=== PATIENT | male | born 1955 | race Caucasian/White ===

== ENCOUNTER 2016-12-24 16:38 | Emergency (ER) | payer MEDICARE ==
[2016-12-24 17:03] VITALS: BP 143/76; PULSE 73; RESP 18; TEMP 98.3
--- NOTE | 2016-12-24 17:14 | ED ---
Recheck HPI - General Chief Complaint: Recheck/Abnormal Lab/Rx Stated Complaint: Med Refill Time Seen by Provider: 12/24/16 17:09 Source: patient, family, RN notes reviewed Mode of arrival: wheelchair Limitations: no limitations - History of Present Illness Initial Comments: 61-year-old male presents emergency department for medication refill. Patient does not has medications because the [place] mail order has not send out his prescriptions. Patient states that he talked to them today and advance and on the . Patient is here with family member states this was confirmed. Patient has chronic anxiety, muscle spasms. Patient is out of his Flexeril, Xanax. - Related Data Home Medications Medication Instructions Recorded Confirmed Cyclobenzaprine [Flexeril] 10 mg PO TID 07/07/14 11/21/15 Furosemide [Lasix] 40 mg PO DAILY 07/07/14 11/21/15 Lovastatin [Mevacor] 20 mg PO HS 07/07/14 11/21/15 Potassium Chloride [Klor-Con M10] 10 meq PO DAILY 07/07/14 11/21/15 Warfarin Sodium 10 mg PO MOWEFRSA 07/07/14 11/21/15 Warfarin [Coumadin] 7.5 mg PO SUTUTH 07/07/14 11/21/15 metFORMIN HCL [Glucophage] 500 mg PO DAILY 07/07/14 11/21/15 Atorvastatin [Lipitor] 20 mg PO DAILY 08/08/14 11/21/15 Losartan Potassium 100 mg PO DAILY 09/06/14 11/21/15 [place]-3 Fatty Acids/Fish Oil [Fish 1 cap PO DAILY 09/06/14 11/21/15 Oil 1,000 mg Softgel] amLODIPine [Norvasc] 10 mg PO DAILY 09/06/14 11/21/15 Acetaminophen-Codeine 300-30mg 1 tab PO Q4HR PRN 11/21/15 11/21/15 [Tylenol w/codeine #3] Carbamide Peroxide [Debrox Otic] 2 drops BOTH EARS DAILY PRN 11/21/15 11/21/15 Gabapentin [Neurontin] 300 mg PO TID 11/21/15 11/21/15 Previous Rx's Medication Instructions Recorded ALPRAZolam [Xanax] 1 mg PO Q8HR #10 tab 07/07/14 Acetaminophen-Codeine 300-30mg 1 each PO Q6H PRN #20 tablet 11/21/15 [Tylenol #3] ALPRAZolam [Xanax] 0.5 mg PO BID PRN #14 tablet 12/24/16 Cyclobenzaprine [Flexeril] 10 mg PO TID PRN #15 tab 12/24/16 Allergies Allergy/AdvReac Type Severity Reaction Status Date / Time NSAIDS (Non-Steroidal Allergy Unknown Unknown Verified 12/24/16 17:03 Anti-Inflamma Androgenic Anabolic Steroid Allergy Unknown Verified 12/24/16 17:03 aspirin Allergy Unknown Verified 12/24/16 17:03 azithromycin Allergy Unknown Verified 12/24/16 17:03 [From Zithromax Z-Boaz] ibuprofen [From Motrin] Allergy Unknown Verified 12/24/16 17:03 niacin Allergy Unknown Verified 12/24/16 17:03 Review of Systems ROS Statement: Those systems with pertinent positive or pertinent negative responses have been documented in the HPI. ROS Other: All systems not noted in ROS Statement are negative. Past Medical History Past Medical History: Asthma, Diabetes Mellitus, Hyperlipidemia, Hypertension Additional Past Medical History / Comment(s): NEUROPATHY obsity History of Any Multi-Drug Resistant Organisms: None Reported Past Surgical History: Back Surgery, Cardiac Ablation, Ear Surgery, Orthopedic Surgery, Tonsillectomy Additional Past Surgical History / Comment(s): knee surgery, Past Psychological History: Anxiety Smoking Status: Current every day smoker Past Alcohol Use History: None Reported Past Drug Use History: None Reported General Exam General appearance: alert, in no apparent distress Respiratory exam: Present: normal lung sounds bilaterally. Absent: respiratory distress, wheezes, rales, rhonchi, stridor Cardiovascular Exam: Present: regular rate, normal rhythm, normal heart sounds. Absent: systolic murmur, diastolic murmur, rubs, gallop, clicks Neurological exam: Present: alert, oriented X3, CN II-XII intact Psychiatric exam: Present: anxious. Absent: homicidal ideation, suicidal ideation Skin exam: Present: warm, dry, intact, normal color. Absent: rash Course Vital Signs 12/24/16 16:59 Temperature 98.3 F Pulse Rate 73 Respiratory 18 Rate Blood Pressure 143/76 O2 Sat by Pulse 96 Oximetry Medical Decision Making - Medical Decision Making 61-year-old male presented for medication refill. Patient has not had any recent controlled substances filled. Patient will be given prescription return parameters were discussed. Disposition Clinical Impression: Encounter for medication refill, Muscle spasm, Anxiety Disposition: HOME SELF-CARE Condition: Stable Instructions: Anxiety (ED) Additional Instructions: Please return to the Emergency Department if symptoms worsen or any other concerns. Prescriptions: ALPRAZolam [Xanax] 0.5 mg PO BID PRN #14 tablet PRN Reason: Anxiety Cyclobenzaprine [Flexeril] 10 mg PO TID PRN #15 tab PRN Reason: Muscle Spasm Referrals: Titi Purvis DO [Primary Care Provider] - 1-2 days Time of Disposition: 17:13
== END 2016-12-24 17:29 | disposition home or self-care (01) ==
LOC: EC 16:38
DX: F41.9 Anxiety disorder, unspecified (principal); M62.838 Other muscle spasm; Z76.0 Encounter for issue of repeat prescription; E11.9 Type 2 diabetes mellitus without complications; E78.5 Hyperlipidemia, unspecified; I10 Essential (primary) hypertension; G62.9 Polyneuropathy, unspecified; E66.9 Obesity, unspecified; Z68.33 Body mass index [BMI] 33.0-33.9, adult; F17.200 Nicotine dependence, unspecified, uncomplicated; Z79.01 Long term (current) use of anticoagulants; Z79.899 Other long term (current) drug therapy; Z79.84 Long term (current) use of oral hypoglycemic drugs; Z88.6 Allergy status to analgesic agent; Z88.1 Allergy status to other antibiotic agents; Z88.8 Allergy status to other drugs, medicaments and biological substances
CPT/HCPCS: 99282

== ENCOUNTER 2017-06-19 15:04 | Inpatient (IN) | payer MEDICARE ==
--- NOTE | 2017-06-19 15:50 | ED ---
URI HPI - General Chief Complaint: Upper Respiratory Infection Stated Complaint: congestion Time Seen by Provider: 06/19/17 15:38 Source: patient Mode of arrival: wheelchair Limitations: no limitations - History of Present Illness Initial Comments: 62 years old male concerned about pneumonia, he said he bit short winded, complaining about the chest pain with deep breaths and he also has a history of heart disease according to him he had a surgery in the past for his coronary artery disease. Complaining about fever, chills, purulent sputum and pleuritic chest pain. No headaches no neck stiffness no abdominal pain no frequency urgency dysuria no symptoms of TIA or CVA - Related Data Home Medications Medication Instructions Recorded Confirmed Furosemide [Lasix] 40 mg PO DAILY 07/07/14 06/19/17 Potassium Chloride [Klor-Con M10] 10 meq PO DAILY 07/07/14 06/19/17 Warfarin Sodium 10 mg PO MOWEFRSA 07/07/14 06/19/17 Warfarin [Coumadin] 7.5 mg PO SUTUTH 07/07/14 06/19/17 metFORMIN HCL [Glucophage] 500 mg PO BID 07/07/14 06/19/17 Losartan Potassium 100 mg PO DAILY 09/06/14 06/19/17 [place]-3 Fatty Acids/Fish Oil [Fish 1 cap PO DAILY 09/06/14 06/19/17 Oil 1,000 mg Softgel] Acetaminophen-Codeine 300-30mg 1 tab PO Q4HR PRN 11/21/15 06/19/17 [Tylenol w/codeine #3] Atorvastatin Calcium [Lipitor] 40 mg PO DAILY 06/19/17 06/19/17 Cholecalciferol [Vitamin D3] 2,000 unit PO DAILY 06/19/17 06/19/17 Pregabalin [Lyrica] 50 mg PO Q8HR 06/19/17 06/19/17 Previous Rx's Medication Instructions Recorded Cyclobenzaprine [Flexeril] 10 mg PO TID PRN #15 tab 12/24/16 Allergies Allergy/AdvReac Type Severity Reaction Status Date / Time NSAIDS (Non-Steroidal Allergy Unknown Unknown Verified 06/19/17 16:15 Anti-Inflamma Androgenic Anabolic Steroid Allergy Unknown Verified 06/19/17 16:15 aspirin Allergy Unknown Verified 06/19/17 16:15 azithromycin Allergy Unknown Verified 06/19/17 16:15 [From Zithromax Z-Boaz] ibuprofen [From Motrin] Allergy Unknown Verified 06/19/17 16:15 niacin Allergy Unknown Verified 06/19/17 16:15 Review of Systems ROS Statement: Those systems with pertinent positive or pertinent negative responses have been documented in the HPI. ROS Other: All systems not noted in ROS Statement are negative. Past Medical History Past Medical History: Asthma, Diabetes Mellitus, Hyperlipidemia, Hypertension Additional Past Medical History / Comment(s): NEUROPATHY obsity History of Any Multi-Drug Resistant Organisms: None Reported Past Surgical History: Back Surgery, Cardiac Ablation, Ear Surgery, Orthopedic Surgery, Tonsillectomy Additional Past Surgical History / Comment(s): knee surgery, Past Psychological History: Anxiety Smoking Status: Current every day smoker Past Alcohol Use History: None Reported Past Drug Use History: None Reported General Exam - General Exam Comments Initial Comments: General: The patient is awake and alert, in no distress, and does not appear acutely ill. Skin: Skin is warm and dry and no rashes or lesions are noted. Eye: Pupils are equal, round and reactive to light, extra-ocular movements are intact; there is normal conjunctiva bilaterally. Ears, nose, mouth and throat: There are moist mucous membranes and no oral lesions. Neck: The neck is supple, there is no tenderness Cardiovascular: There is a regular rate and rhythm. No murmur, rub or gallop is appreciated. Respiratory: To auscultation bilateral, chemistry typical consistent with a moderate to severe COPD Gastrointestinal: Soft, non-distended, non-tender abdomen without masses or organomegaly noted. There is no rebound or guarding present. Bowel sounds are unremarkable. Back: There is no tenderness to palpation in the midline. There is no obvious deformity. Musculoskeletal: Normal ROM, no tenderness, There is no pedal edema. There is no calf tenderness or swelling. No cords were appreciated. Neurological: CN II-XII intact, Cranial nerves III through XII are intact. There are no obvious motor or sensory deficits. Coordination appears grossly intact. Speech is normal. Psychiatric: Cooperative, appropriate mood & affect, normal judgment. Limitations: no limitations Course Vital Signs 06/19/17 15:07 Temperature 97.9 F Pulse Rate 66 Respiratory 20 Rate Blood Pressure 163/91 O2 Sat by Pulse 98 Oximetry EKG is normal sinus rhythm ventricular rate is 65 AK interval is 196 QRS duration is 108 QT/QTc is 436/453 review cc EKG does not reveal any ST elevation or ST depression - Reevaluation(s) Reevaluation #1: His labs and imaging his were reviewed, findings discussed with the patient noticed his troponin is elevated he is on a his INR is quite elevated 5.3 mm hole of his Coumadin he be admitted today and be seen by screen printing press operator 06/19/17 17:48 Medical Decision Making - Lab Data Result diagrams: 06/19/17 16:00 06/19/17 16:00 Lab Results 06/19/17 06/19/17 06/19/17 Range/Units 16:00 16:00 16:00 WBC 9.2 (3.8-10.6) k/uL RBC 4.83 (4.30-5.90) m/uL Hgb 15.1 (13.0-17.5) gm/dL Hct 46.2 (39.0-53.0) % MCV 95.6 (80.0-100.0) fL MCH 31.2 (25.0-35.0) pg MCHC 32.6 (31.0-37.0) g/dL RDW 13.1 (11.5-15.5) % Plt Count 238 (150-450) k/uL Neutrophils % 69 % Lymphocytes % 23 % Monocytes % 5 % Eosinophils % 2 % Basophils % 1 % Neutrophils # 6.3 (1.3-7.7) k/uL Lymphocytes # 2.1 (1.0-4.8) k/uL Monocytes # 0.5 (0-1.0) k/uL Eosinophils # 0.2 (0-0.7) k/uL Basophils # 0.1 (0-0.2) k/uL PT (9.0-12.0) sec INR (<1.2) APTT (22.0-30.0) sec D-Dimer (<0.60) mg/L FEU Sodium 140 (137-145) mmol/L Potassium 4.3 (3.5-5.1) mmol/L Chloride 104 (98-107) mmol/L Carbon Dioxide 25 (22-30) mmol/L Anion Gap 11 mmol/L BUN 11 (9-20) mg/dL Creatinine 0.94 (0.66-1.25) mg/dL Est GFR (MDRD) Af Amer >60 (>60 ml/min/1.73 sqM) Est GFR (MDRD) Non-Af >60 (>60 ml/min/1.73 sqM) Glucose 102 H (74-99) mg/dL Calcium 9.5 (8.4-10.2) mg/dL Total Bilirubin 0.7 (0.2-1.3) mg/dL AST 18 (17-59) U/L ALT 21 (21-72) U/L Alkaline Phosphatase 95 (38-126) U/L Total Creatine Kinase 82 (55-170) U/L CK-MB (CK-2) 1.5 (0.0-2.4) ng/mL CK-MB (CK-2) Rel Index 1.8 Troponin I 0.040 H* (0.000-0.034) ng/mL Total Protein 7.8 (6.3-8.2) g/dL Albumin 4.3 (3.5-5.0) g/dL 06/19/17 Range/Units 16:00 WBC (3.8-10.6) k/uL RBC (4.30-5.90) m/uL Hgb (13.0-17.5) gm/dL Hct (39.0-53.0) % MCV (80.0-100.0) fL MCH (25.0-35.0) pg MCHC (31.0-37.0) g/dL RDW (11.5-15.5) % Plt Count (150-450) k/uL Neutrophils % % Lymphocytes % % Monocytes % % Eosinophils % % Basophils % % Neutrophils # (1.3-7.7) k/uL Lymphocytes # (1.0-4.8) k/uL Monocytes # (0-1.0) k/uL Eosinophils # (0-0.7) k/uL Basophils # (0-0.2) k/uL PT 52.5 H (9.0-12.0) sec INR 5.3 H* (<1.2) APTT 43.7 H (22.0-30.0) sec D-Dimer 0.33 (<0.60) mg/L FEU Sodium (137-145) mmol/L Potassium (3.5-5.1) mmol/L Chloride (98-107) mmol/L Carbon Dioxide (22-30) mmol/L Anion Gap mmol/L BUN (9-20) mg/dL Creatinine (0.66-1.25) mg/dL Est GFR (MDRD) Af Amer (>60 ml/min/1.73 sqM) Est GFR (MDRD) Non-Af (>60 ml/min/1.73 sqM) Glucose (74-99) mg/dL Calcium (8.4-10.2) mg/dL Total Bilirubin (0.2-1.3) mg/dL AST (17-59) U/L ALT (21-72) U/L Alkaline Phosphatase (38-126) U/L Total Creatine Kinase (55-170) U/L CK-MB (CK-2) (0.0-2.4) ng/mL CK-MB (CK-2) Rel Index Troponin I (0.000-0.034) ng/mL Total Protein (6.3-8.2) g/dL Albumin (3.5-5.0) g/dL Disposition Clinical Impression: Dyspnea, Chest pain, Pleuritic chest pain Disposition: ADMITTED IP TO THIS HOSP Referrals: Titi Purvis DO [Primary Care Provider] - 1-2 days
[2017-06-19 16:30] LABS: Basophils # (A) 0.1 k/uL (0-0.2); Basophils % (A) 1 %; CH 31.6; CHCM 33.2; Eosinophils # (A) 0.2 k/uL (0-0.7); Eosinophils % (A) 2 %; HCT 46.2 % (39.0-53.0); HDW 2.86; HGB 15.1 gm/dL (13.0-17.5); Luc # (Auto) 0.15; Luc % (Auto) 2; Lymphocytes # (A) 2.1 k/uL (1.0-4.8); Lymphocytes % (A) 23 %; MCH 31.2 pg (25.0-35.0); MCHC 32.6 g/dL (31.0-37.0); MCV 95.6 fL (80.0-100.0); Monocytes # (A) 0.5 k/uL (0-1.0); Monocytes % (A) 5 %; Neutrophils # (A) 6.3 k/uL (1.3-7.7); Neutrophils % (A) 69 %; RBC 4.83 m/uL (4.30-5.90); RDW 13.1 % (11.5-15.5); WBC 9.2 k/uL (3.8-10.6); WBC (Perox) 8.71
[2017-06-19 16:39] LABS: Partial Thromboplastin Time 43.7 sec (22.0-30.0)
[2017-06-19 16:43] LABS: ALT 21 U/L (21-72); AST 18 U/L (17-59); Alkaline Phosphatase 95 U/L (38-126); Anion Gap 11 mmol/L; Blood Urea Nitrogen 11 mg/dL (9-20); Calcium 9.5 mg/dL (8.4-10.2); Carbon Dioxide 25 mmol/L (22-30); Chloride 104 mmol/L (98-107); Glucose 102 mg/dL (74-99); Non-African American GFR(MDRD) >60 (>60 ml/min/1.73 sqM); Potassium 4.3 mmol/L (3.5-5.1); Sodium 140 mmol/L (137-145); Total Bilirubin 0.7 mg/dL (0.2-1.3); Total Protein 7.8 g/dL (6.3-8.2)
--- NOTE | 2017-06-19 16:59 | XR ---
EXAMINATION TYPE: XR chest 2V DATE OF EXAM: 06/19/2017 COMPARISON: 08/09/2012 HISTORY: Cough TECHNIQUE: Frontal and lateral views of the chest are obtained. FINDINGS: There is slight coarsening of interstitial pulmonary markings. There is no heart failure. Costophrenic angles are clear. There is spurring in the thoracic spine. Thoracic aorta is atheromatou s. IMPRESSION: Interstitial fibrotic changes. Pulmonary infiltrates are mostly cleared compared to old exam. No heart failure.
[2017-06-19 17:00] LABS: Creatine Kinase MB 1.5 ng/mL (0.0-2.4)
[2017-06-19 17:03] LABS: Prothrombin Time 52.5 sec (9.0-12.0)
[2017-06-19 17:06] LABS: INR 5.3 (<1.2)
[2017-06-19 17:17] LABS: Troponin I 0.04 ng/mL (0.000-0.034)
[2017-06-19] MEDS ORDERED: NITROGLYCERIN SL TABS 0.4 MG TAB SUBLINGUAL PRN (17:49)
[2017-06-19] MEDS ORDERED: Acetaminophen-Codeine 300-30mg TAB PO PRN (17:53)
[2017-06-19] MEDS ORDERED: CYCLOBENZAPRINE 10 MG TAB PO PRN (17:53)
[2017-06-19] MEDS ORDERED: Acetaminophen-Codeine 300-30mg TAB PO STA (18:13)
[2017-06-19 21:01] LABS: Glucose,Whole Blood 156 mg/dL (75-99)
[2017-06-19] MEDS: Acetaminophen-Codeine 300-30mg TAB PO PRN (21:23)
[2017-06-19] MEDS: metFORMIN 500 MG TAB PO SCH (21:23)
[2017-06-19 23:13] LABS: Creatine Kinase MB 1.3 ng/mL (0.0-2.4)
[2017-06-19 23:15] LABS: Troponin I 0.046 ng/mL (0.000-0.034)
[2017-06-19] MEDS: PREGABALIN 50 MG CAP PO SCH (23:18)
[2017-06-20] MEDS: Acetaminophen-Codeine 300-30mg TAB PO PRN ×6 (01:46→23:15)
[2017-06-20 05:10] LABS: Cholesterol 148 mg/dL (<200); HDL Cholesterol 41 mg/dL (40-60)
[2017-06-20 05:32] LABS: Creatine Kinase MB 1.3 ng/mL (0.0-2.4)
[2017-06-20 05:41] LABS: Troponin I 0.047 ng/mL (0.000-0.034)
[2017-06-20 06:08] LABS: INR 4.5 (<1.2); Prothrombin Time 44.4 sec (9.0-12.0)
[2017-06-20 06:15] LABS: Glucose,Whole Blood 91 mg/dL (75-99)
[2017-06-20] MEDS ORDERED: ASPIRIN 325 MG TAB PO SCH (09:00)
[2017-06-20] MEDS ORDERED: ATORVASTATIN 40 MG TAB PO SCH (09:00)
[2017-06-20] MEDS ORDERED: NON-FORMULARY DRUG (Omega-3 Fatty Acids/Fish Oil [Fish Oil 1,000 Mg Softgel] 1 CAP) PO SCH (09:00)
[2017-06-20] MEDS: FUROSEMIDE 40 MG TAB PO SCH (10:35)
[2017-06-20] MEDS: PREGABALIN 50 MG CAP PO SCH ×3 (10:35→23:14)
[2017-06-20] MEDS: metFORMIN 500 MG TAB PO SCH ×2 (10:35→21:31)
[2017-06-20] MEDS: LOSARTAN 50 MG TAB PO SCH (10:35)
[2017-06-20] MEDS: POTASSIUM CHLORIDE ER 10 MEQ TAB.ER.PRT PO SCH (10:36)
--- NOTE | 2017-06-20 11:03 | P.CRDCN ---
History of Present Illness Consult date: 06/20/17 Chief complaint: Cough History of present illness: This is a pleasant 62-year-old male gentleman who sees Dr. Saucedo in the office on regular basis with a past medical history significant for obesity , paroxysmal A. fib, borderline diabetes, hypertension, and dyslipidemia presented to the hospital complaining of "having a pneumonia" The patient was experiencing cough productive of sputum at home. Also he was having fever. Did not have any symptoms of chest pain or discomfort or difficulty breathing or heart racing or fluttering or dizziness or lightheadedness or syncope. He was feeling weak though. The chest x-ray did not show any acute abnormalities. The EKG showed sinus rhythm with nonspecific changes in the inferior leads. The cardiac enzymes were checked and came in to be slightly abnormal. The patient did not have any fever during his hospitalization. Also the WBC was not elevated. I am concerned about severe underlying coronary artery disease with the patient' s multiple risk factors. I will obtain the previous medical records from the office. He just underwent an echocardiogram in the office. Also obtain the last stress test. Past Medical History Past Medical History: Asthma, Diabetes Mellitus, Hyperlipidemia, Hypertension Additional Past Medical History / Comment(s): NEUROPATHY obsity History of Any Multi-Drug Resistant Organisms: None Reported Past Surgical History: Back Surgery, Cardiac Ablation, Ear Surgery, Orthopedic Surgery, Tonsillectomy Additional Past Surgical History / Comment(s): knee surgery, Past Anesthesia/Blood Transfusion Reactions: No Reported Reaction Smoking Status: Current every day smoker - Past Family History Mother Family Medical History: Cancer Medications and Allergies Home Medications Medication Instructions Recorded Confirmed Type Furosemide [Lasix] 40 mg PO DAILY 07/07/14 06/19/17 History Potassium Chloride [Klor-Con M10] 10 meq PO DAILY 07/07/14 06/19/17 History Warfarin Sodium 10 mg PO MOWEFRSA 07/07/14 06/19/17 History Warfarin [Coumadin] 7.5 mg PO SUTUTH 07/07/14 06/19/17 History metFORMIN HCL [Glucophage] 500 mg PO BID 07/07/14 06/19/17 History Losartan Potassium 100 mg PO DAILY 09/06/14 06/19/17 History [place]-3 Fatty Acids/Fish Oil [Fish 1 cap PO DAILY 09/06/14 06/19/17 History Oil 1,000 mg Softgel] Acetaminophen-Codeine 300-30mg 1 tab PO Q4HR PRN 11/21/15 06/19/17 History [Tylenol w/codeine #3] Cyclobenzaprine [Flexeril] 10 mg PO TID PRN #15 tab 12/24/16 06/19/17 Rx Atorvastatin Calcium [Lipitor] 40 mg PO DAILY 06/19/17 06/19/17 History Cholecalciferol [Vitamin D3] 2,000 unit PO DAILY 06/19/17 06/19/17 History Pregabalin [Lyrica] 50 mg PO Q8HR 06/19/17 06/19/17 History Allergies Allergy/AdvReac Type Severity Reaction Status Date / Time NSAIDS (Non-Steroidal Allergy Unknown Unknown Verified 06/19/17 16:15 Anti-Inflamma Androgenic Anabolic Steroid Allergy Unknown Verified 06/19/17 16:15 aspirin Allergy Unknown Verified 06/19/17 16:15 azithromycin Allergy Unknown Verified 06/19/17 16:15 [From Zithromax Z-Boaz] ibuprofen [From Motrin] Allergy Unknown Verified 06/19/17 16:15 niacin Allergy Unknown Verified 06/19/17 16:15 Physical Exam Vitals: Vital Signs Temp Pulse Pulse Pulse Resp BP BP 06/20/17 04:00 97 F L 70 18 165/80 06/19/17 23:23 97.1 F L 68 16 139/79 06/19/17 20:00 97.0 F L 68 16 177/95 06/19/17 19:08 96.8 F L 66 20 178/81 06/19/17 18:58 97.9 F 65 18 146/81 06/19/17 18:43 65 18 146/81 06/19/17 18:17 66 18 163/77 06/19/17 15:07 97.9 F 66 20 163/91 Pulse Ox 06/20/17 04:00 93 L 06/19/17 23:23 94 L 06/19/17 20:00 96 06/19/17 19:08 96 06/19/17 18:58 98 06/19/17 18:43 98 06/19/17 18:17 98 06/19/17 15:07 98 Intake and Output 06/19/17 06/20/17 06/20/17 22:59 06:59 14:59 Intake Total 240 Output Total 300 Balance 240 -300 Intake: Oral 240 Output: Urine 300 Other: Voiding Method Toilet # Voids 1 Weight 199.581 kg 144.8 kg - Constitutional General appearance: no acute distress - Respiratory Respiratory: bilateral: CTA - Cardiovascular Rhythm: regular Heart sounds: normal: S1, S2 Results 06/19/17 16:00 06/19/17 16:00 Cardiac Enzymes 06/19/17 06/19/17 06/19/17 Range/Units 16:00 16:00 22:18 AST 18 (17-59) U/L CK-MB (CK-2) 1.5 1.3 (0.0-2.4) ng/mL Troponin I 0.040 H* 0.046 H* (0.000-0.034) ng/mL 06/20/17 Range/Units 04:19 AST (17-59) U/L CK-MB (CK-2) 1.3 (0.0-2.4) ng/mL Troponin I 0.047 H* (0.000-0.034) ng/mL Coagulation 06/19/17 06/20/17 Range/Units 16:00 04:19 PT 52.5 H 44.4 H (9.0-12.0) sec APTT 43.7 H (22.0-30.0) sec Lipids 06/20/17 Range/Units 04:19 Triglycerides 168 H (<150) mg/dL Cholesterol 148 (<200) mg/dL HDL Cholesterol 41 (40-60) mg/dL CBC 06/19/17 Range/Units 16:00 WBC 9.2 (3.8-10.6) k/uL RBC 4.83 (4.30-5.90) m/uL Hgb 15.1 (13.0-17.5) gm/dL Hct 46.2 (39.0-53.0) % Plt Count 238 (150-450) k/uL Comprehensive Metabolic Panel 06/19/17 Range/Units 16:00 Sodium 140 (137-145) mmol/L Potassium 4.3 (3.5-5.1) mmol/L Chloride 104 (98-107) mmol/L Carbon Dioxide 25 (22-30) mmol/L BUN 11 (9-20) mg/dL Creatinine 0.94 (0.66-1.25) mg/dL Glucose 102 H (74-99) mg/dL Calcium 9.5 (8.4-10.2) mg/dL AST 18 (17-59) U/L ALT 21 (21-72) U/L Alkaline Phosphatase 95 (38-126) U/L Total Protein 7.8 (6.3-8.2) g/dL Albumin 4.3 (3.5-5.0) g/dL Current Medications Generic Name Dose Route Start Last Admin Trade Name Freq PRN Reason Stop Dose Admin Acetaminophen/Codeine Phosphate 2 each 06/19/17 20:01 06/20/17 10:36 Tylenol #3 PO 2 each Q4HR PRN Administration Pain Atorvastatin Calcium 40 mg 06/20/17 09:00 06/20/17 10:35 Lipitor PO 40 mg DAILY [place] Administration Cholecalciferol 2,000 unit 06/20/17 12:00 Vitamin D3 PO 1200 [place] Cyclobenzaprine HCl 10 mg 06/19/17 17:53 Flexeril PO TID PRN Muscle Spasm Furosemide 40 mg 06/20/17 09:00 06/20/17 10:35 Lasix PO 40 mg DAILY [place] Administration Losartan Potassium 100 mg 06/20/17 09:00 06/20/17 10:35 Cozaar PO 100 mg DAILY [place] Administration Metformin HCl 500 mg 06/19/17 21:00 06/20/17 10:35 Glucophage PO 500 mg BID [place] Administration Nitroglycerin 0.4 mg 06/19/17 17:49 Nitrostat SUBLINGUAL Q5M PRN Chest Pain Potassium Chloride 10 meq 06/20/17 09:00 06/20/17 10:36 K-Dur 10 PO 10 meq DAILY [place] Administration Pregabalin 50 mg 06/20/17 00:00 06/20/17 10:35 Lyrica PO 50 mg Q8HR [place] Administration Intake and Output 06/19/17 06/20/17 06/20/17 22:59 06:59 14:59 Intake Total 240 Output Total 300 Balance 240 -300 Intake: Oral 240 Output: Urine 300 Other: Voiding Method Toilet # Voids 1 Weight 199.581 kg 144.8 kg 06/19/17 16:00 06/19/17 16:00 Assessment and Plan Assessment: This is a pleasant 62-year-old gentleman with multiple risk factors for CAD presented to the hospital with cough and weakness. No chest pain or discomfort. The patient was ruled in for acute coronary syndrome. The cardiac enzymes are mildly elevated and the EKG showed nonspecific changes. I am concerned about severe underlying CAD. I do feel that the patient needs to have a heart catheterization to rule out any severe underlying CAD. I am going to obtain the previous medical records from the office including the last stress test and last echocardiogram. We'll continue following up with him.
[2017-06-20 11:29] LABS: Glucose,Whole Blood 105 mg/dL (75-99)
[2017-06-20] MEDS: CHOLECALCIFEROL 1,000 UNIT TAB PO SCH (14:35)
--- NOTE | 2017-06-20 14:35 | P.HPIM ---
History of Present Illness H&P Date: 06/20/17 Chief Complaint: Shortness of breath Patient is a 62-year-old male with a known history of hypertension, diabetes type 2 [id number]-frefxtewu, history of atrial fibrillation status post ablation by Dr. Saucedo and morbid obesity came to the hospital with complaints of chest congestion and shortness of breath worsening for the past few days. Patient thought he was having pneumonia. Patient otherwise denied any chest pain. Patient does have cough with white sputum production. Patient denied any fever. Or chills. No nausea vomiting or abdominal pain. Otherwise has been feeling very weak. Patient is supposed to follow with his banner painter, Dr. Saucedo today. On admission chest x-ray showed no acute cardio pulmonary process. EKG showed normal sinus rhythm. With T-wave nonspecific changes Patient was found have slightly elevated troponin level D-dimer not elevated INR 5.3. Review of Systems Constitutional: Patient denies any fever or chills . No generalized weakness or weight loss. Abdomen: Patient denied nausea vomiting and diarrhea and abdominal pain. Cardiovascular: No chest pain. Shortness of breath and congestion. Respiratory: Cough with whitish sputum production and shortness of breath Neurologic: Patient denied any numbness or tingling headache. Musculoskeletal: Patient denies any complaints of joint swelling or deformity. Skin: Negative Psychiatric: Negative Endocrine: No heat or cold intolerance. No recent weight gain. Genitourinary: No dysuria or hematuria. All other 14 point ROS negative except the above Past Medical History Past Medical History: Asthma, Diabetes Mellitus, Hyperlipidemia, Hypertension Additional Past Medical History / Comment(s): NEUROPATHY obsity History of Any Multi-Drug Resistant Organisms: None Reported Past Surgical History: Back Surgery, Cardiac Ablation, Ear Surgery, Orthopedic Surgery, Tonsillectomy Additional Past Surgical History / Comment(s): knee surgery, Past Anesthesia/Blood Transfusion Reactions: No Reported Reaction Smoking Status: Current every day smoker - Past Family History Mother Family Medical History: Cancer Medications and Allergies Home Medications Medication Instructions Recorded Confirmed Type Furosemide [Lasix] 40 mg PO DAILY 07/07/14 06/19/17 History Potassium Chloride [Klor-Con M10] 10 meq PO DAILY 07/07/14 06/19/17 History Warfarin Sodium 10 mg PO MOWEFRSA 07/07/14 06/19/17 History Warfarin [Coumadin] 7.5 mg PO SUTUTH 07/07/14 06/19/17 History metFORMIN HCL [Glucophage] 500 mg PO BID 07/07/14 06/19/17 History Losartan Potassium 100 mg PO DAILY 09/06/14 06/19/17 History [place]-3 Fatty Acids/Fish Oil [Fish 1 cap PO DAILY 09/06/14 06/19/17 History Oil 1,000 mg Softgel] Acetaminophen-Codeine 300-30mg 1 tab PO Q4HR PRN 11/21/15 06/19/17 History [Tylenol w/codeine #3] Cyclobenzaprine [Flexeril] 10 mg PO TID PRN #15 tab 12/24/16 06/19/17 Rx Atorvastatin Calcium [Lipitor] 40 mg PO DAILY 06/19/17 06/19/17 History Cholecalciferol [Vitamin D3] 2,000 unit PO DAILY 06/19/17 06/19/17 History Pregabalin [Lyrica] 50 mg PO Q8HR 06/19/17 06/19/17 History Allergies Allergy/AdvReac Type Severity Reaction Status Date / Time NSAIDS (Non-Steroidal Allergy Unknown Unknown Verified 06/19/17 16:15 Anti-Inflamma Androgenic Anabolic Steroid Allergy Unknown Verified 06/19/17 16:15 aspirin Allergy Unknown Verified 06/19/17 16:15 azithromycin Allergy Unknown Verified 06/19/17 16:15 [From Zithromax Z-Boaz] ibuprofen [From Motrin] Allergy Unknown Verified 06/19/17 16:15 niacin Allergy Unknown Verified 06/19/17 16:15 Physical Exam Vitals: Vital Signs Temp Pulse Pulse Pulse Resp BP BP 06/20/17 09:45 70 70 18 06/20/17 08:30 97.4 F L 74 18 148/78 06/20/17 04:00 97 F L 70 18 165/80 06/19/17 23:23 97.1 F L 68 16 139/79 06/19/17 20:00 97.0 F L 68 16 177/95 06/19/17 19:08 96.8 F L 66 20 178/81 06/19/17 18:58 97.9 F 65 18 146/81 06/19/17 18:43 65 18 146/81 06/19/17 18:17 66 18 163/77 06/19/17 15:07 97.9 F 66 20 163/91 Pulse Ox 06/20/17 09:45 06/20/17 08:30 94 L 06/20/17 04:00 93 L 06/19/17 23:23 94 L 06/19/17 20:00 96 06/19/17 19:08 96 06/19/17 18:58 98 06/19/17 18:43 98 06/19/17 18:17 98 06/19/17 15:07 98 Intake and Output 06/19/17 06/20/17 06/20/17 22:59 06:59 14:59 Intake Total 240 Output Total 300 Balance 240 -300 Intake: Oral 240 Output: Urine 300 Other: Voiding Method Toilet Toilet # Voids 1 Weight 199.581 kg 144.8 kg PHYSICAL EXAMINATION: Patient is lying in the bed comfortably, no acute distress, awake alert and oriented.. HEENT: Normocephalic. Neck is supple. Pupils reactive. Nostrils clear. Oral cavity is moist. Ears reveal no drainage. Neck reveals no JVD, carotid bruits, or thyromegaly. CHEST EXAMINATION: Trachea is central. Symmetrical expansion. Bilateral air entry is present. Diminished breath sounds bilateral basally. CARDIAC: Normal S1, S2 with no gallops. No murmurs ABDOMEN: Soft. Bowel sounds normal. No organomegaly. No abdominal bruits. Extremities: reveal no edema. No clubbing or cyanosis Neurologically awake, alert, oriented x3 with well-coordinated movements. No focal deficits noted Skin: No rash or skin lesions. Psychiatric: Coperative. Nonsuicidal Musculoskeletal: No joint swelling or deformity. Normal range of motion. Results CBC & Chem 7: 06/19/17 16:00 06/19/17 16:00 Labs: Abnormal Lab Results - Last 24 Hours (Table) 06/19/17 06/19/17 06/19/17 Range/Units 16:00 16:00 16:00 PT 52.5 H (9.0-12.0) sec INR 5.3 H* (<1.2) APTT 43.7 H (22.0-30.0) sec Glucose 102 H (74-99) mg/dL POC Glucose (mg/dL) (75-99) mg/dL Troponin I 0.040 H* (0.000-0.034) ng/mL Triglycerides (<150) mg/dL 06/19/17 06/19/17 06/20/17 Range/Units 21:00 22:18 04:19 PT (9.0-12.0) sec INR (<1.2) APTT (22.0-30.0) sec Glucose (74-99) mg/dL POC Glucose (mg/dL) 156 H (75-99) mg/dL Troponin I 0.046 H* 0.047 H* (0.000-0.034) ng/mL Triglycerides (<150) mg/dL 06/20/17 06/20/17 06/20/17 Range/Units 04:19 04:19 11:27 PT 44.4 H (9.0-12.0) sec INR 4.5 H (<1.2) APTT (22.0-30.0) sec Glucose (74-99) mg/dL POC Glucose (mg/dL) 105 H (75-99) mg/dL Troponin I (0.000-0.034) ng/mL Triglycerides 168 H (<150) mg/dL Thrombosis Risk Factor Assmnt - Choose All That Apply Each Factor Represents 1 point: Obesity (BMI >25) Each Risk Factor Represents 2 Points: Age 61-74 years Thrombosis Risk Factor Assessment Total Risk Factor Score: 3 Thrombosis Risk Factor Assessment Level: Moderate Risk Assessment and Plan Assessment: #1 atypical chest pain and shortness of breath with intermediate troponin level. Rule out acute coronary syndrome #2 cough and congestion. No evidence of pneumonia. Rule out acute CHF. We will check BNP #3 atrial fibrillation paroxysmal with history of fibrillation currently on anticoagulation #4 Coumadin coagulopathy with INR 5.3 #5 morbid obesity with a BMI 43 #6 diabetes type 2 [id number]-pciapdder #7 hypertension #8 degenerative joint disease #9 diabetic neuropathy Plan: Patient will be continued on telemetry monitoring. We'll check serial troponins. Cardiology evaluation. Patient says that he had recently echocardiogram was done. We will continue with the home medications and blood sugar control. Will hold Coumadin due to coagulopathy and monitor. BNP level was ordered. Patient does not have any fever or chills or cough with sputum production. No antibiotics needed at this time. We will continue the current medications and further recommendations based on the clinical course and cardiology evaluation. Time with Patient: Greater than 30
[2017-06-20] MEDS ORDERED: NITROGLYCERIN SL TABS 0.4 MG TAB SUBLINGUAL PRN (15:13)
[2017-06-20] MEDS ORDERED: ALPRAZolam 0.25 MG TAB PO PRN (15:13)
[2017-06-20] MEDS ORDERED: ALPRAZolam 0.5 MG TAB PO PRN (15:13)
[2017-06-20] MEDS ORDERED: SODIUM CHLORIDE 0.9% 1,000 ML in EMPTY BAG 1 BAG IV ONE (15:13)
[2017-06-20 16:52] LABS: Glucose,Whole Blood 93 mg/dL (75-99)
[2017-06-20 21:25] LABS: Glucose,Whole Blood 131 mg/dL (75-99)
[2017-06-21] MEDS: Acetaminophen-Codeine 300-30mg TAB PO PRN ×5 (03:10→20:11)
[2017-06-21] MEDS ORDERED: ATORVASTATIN 80 MG TAB PO ONE (06:00)
[2017-06-21] MEDS ORDERED: ASPIRIN 325 MG TAB PO ONE (06:00)
[2017-06-21 06:25] LABS: Glucose,Whole Blood 120 mg/dL (75-99)
[2017-06-21] MEDS: metFORMIN 500 MG TAB PO SCH ×2 (06:34→14:38)
[2017-06-21] MEDS: POTASSIUM CHLORIDE ER 10 MEQ TAB.ER.PRT PO SCH (06:42)
[2017-06-21] MEDS: PREGABALIN 50 MG CAP PO SCH ×2 (06:42→14:49)
[2017-06-21] MEDS: LOSARTAN 50 MG TAB PO SCH (06:42)
[2017-06-21 10:49] LABS: INR 2.8 (<1.2); Prothrombin Time 27.3 sec (9.0-12.0)
[2017-06-21] MEDS ORDERED: MIDAZOLAM 2 MG/2 ML VIAL IVP ONE ×2 (11:05→11:07)
[2017-06-21] MEDS ORDERED: IV FLUID CONTINUATION 1,000 ML IV ONE (11:05)
[2017-06-21] MEDS ORDERED: LIDOCAINE 2% INJ 20 MG/ML SQ ONE (11:10)
[2017-06-21] MEDS: VERAPAMIL SYRINGE (5 MG/10 ML) INTRAARTER ONE ×2 (11:11→11:23)
[2017-06-21] MEDS ORDERED: IOHEXOL 350 MG/ML 125ML BOTTLE INJ ONE (11:23)
--- NOTE | 2017-06-21 11:51 | CC ---
CARDIAC CATHETERIZATION REPORT DATE OF SERVICE: 06/21/2017 PERFORMING PHYSICIAN: Audie Davis MD, Java Technical Manager. PROCEDURE PERFORMED: 1. Selective right and left coronary angiogram. 2. Left heart catheterization. INDICATION: This is a pleasant 62-year-old gentleman who presented to the hospital with nonspecific symptoms of being tired and fatigued and was ruled in for acute coronary syndrome. The heart catheterization was recommended, in view of that and in view of his multiple risk factors. APPROACH: Right radial artery. COMPLICATION: None. LEVEL OF SEDATION: Moderate with a sedation length of 15 minutes. PROCEDURE DESCRIPTION: After obtaining an informed consent, the patient was brought to the Cardiac Personnel Administrator. The right radial artery was cannulated using micropuncture technique, the micropuncture wire passed easily, then I placed a 6-Turkish sheath in the right radial artery and subsequently I gave the patient 2 mg of verapamil IA and no heparin was given. The reason for that, because the patient's INR was 2. After that, I did selective right and left coronary angiogram using JR4 and JL4 catheters. I did left heart catheterization using the JR4 catheter, which flipped into the LV. Then I did pullback per protocol. The procedure was completed without any complication. SELECTIVE CORONARY ANGIOGRAM: 1. The right coronary artery is a large caliber vessel and it is a dominant vessel. It is angiographically normal. 2. The left main is angiographically normal. It bifurcates into the left circumflex and left anterior descending artery. The left circumflex is a large caliber vessel and it is a codominant vessel. The proximal left circumflex is angiographically normal and gives rise into the first and second obtuse marginal branches, both are angiographically normal. The mid left circumflex is normal and gives rise into the third OM, which is small caliber vessel and seems to be angiographically normal. 3. The circumflex distally is angiographically normal and bifurcates into PDA and PLV branches, both are angiographically normal. 4. The left anterior descending artery: The proximal LAD is angiographically normal. The mid LAD and distal LAD are angiographically normal. The LAD proximally gives rise into a large diagonal branch which seems to be angiographically normal. HEMODYNAMICS: The left ventricular end-diastolic pressure was 12 mmHg and no gradient was identified across the aortic valve. CONCLUSION: Normal coronary angiogram. POSTPROCEDURE MANAGEMENT: 1. Medical treatment. 2. Follow up with the patient. MMODL / IJN: [id number] /
[2017-06-21] MEDS: FUROSEMIDE 40 MG TAB PO SCH (11:53)
[2017-06-21] MEDS: CHOLECALCIFEROL 1,000 UNIT TAB PO SCH (11:54)
[2017-06-21 12:00] LABS: Glucose,Whole Blood 112 mg/dL (75-99)
[2017-06-21 17:08] LABS: Glucose,Whole Blood 116 mg/dL (75-99)
[2017-06-21 21:05] LABS: Glucose,Whole Blood 123 mg/dL (75-99)
--- NOTE | 2017-06-21 22:47 | P.PN ---
Subjective Progress Note Date: 06/21/17 Principal diagnosis: Chest pain Patient is a 62-year-old male with a known history of hypertension, diabetes type 2 [id number]-qrrhibrhy, history of atrial fibrillation status post ablation by Dr. Saucedo and morbid obesity came to the hospital with complaints of chest congestion and shortness of breath worsening for the past few days. Patient thought he was having pneumonia. Patient otherwise denied any chest pain. Patient does have cough with white sputum production. Patient denied any fever. Or chills. No nausea vomiting or abdominal pain. Otherwise has been feeling very weak. Patient is supposed to follow with his senior pensions administrator, Dr. Saucedo today. On admission chest x-ray showed no acute cardio pulmonary process. EKG showed normal sinus rhythm. With T-wave nonspecific changes Patient was found have slightly elevated troponin level D-dimer not elevated INR 5.3. 06/21/2017 Patient denied any complaints of chest pain today. Patient underwent recatheterization's which showed normal coronaries. INR came down to 2.8 today. Patient denied any shortness of breath. Anticipate discharge tomorrow. Objective - Vital Signs Vital signs: Vital Signs Temp 97.1 F L 06/21/17 15:57 Pulse 74 06/21/17 15:57 Resp 16 06/21/17 15:57 BP 150/69 06/21/17 15:57 Pulse Ox 96 06/21/17 15:57 Intake & Output 06/21/17 06/21/17 06/22/17 06:59 18:59 06:59 Intake Total 1632 892 Balance 1632 892 Weight 143.3 kg Intake: IV 100 Intake, IV Titration 1152 432 Amount Sodium Chloride 0.9% 1, 1152 432 000 ml In Empty Bag 1 bag @ 1 ML/KG/HR 144.8 mls/ hr IV .Q6H55M ONE Rx#: [id number] Oral 480 360 Other: Voiding Method Toilet Toilet # Voids 1 - Exam PHYSICAL EXAMINATION: Patient is lying in the bed comfortably, no acute distress, awake alert and oriented.. HEENT: Normocephalic. Neck is supple. Pupils reactive. Nostrils clear. Oral cavity is moist. Ears reveal no drainage. Neck reveals no JVD, carotid bruits, or thyromegaly. CHEST EXAMINATION: Trachea is central. Symmetrical expansion. Lung juarez clear to auscultation and percussion. CARDIAC: Normal S1, S2 with no gallops. No murmurs ABDOMEN: Soft. Bowel sounds normal. No organomegaly. No abdominal bruits. Extremities: reveal no edema. No clubbing or cyanosis Neurologically awake, alert, oriented x3 with well-coordinated movements. No focal deficits noted Skin: No rash or skin lesions. Psychiatric: Operative. Nonsuicidal Musculoskeletal: No joint swelling or deformity. Normal range of motion. - Labs CBC & Chem 7: 06/19/17 16:00 06/19/17 16:00 Labs: Abnormal Lab Results - Last 24 Hours (Table) 06/21/17 06/21/17 06/21/17 Range/Units 06:24 10:30 11:58 PT 27.3 H (9.0-12.0) sec INR 2.8 H (<1.2) POC Glucose (mg/dL) 120 H 112 H (75-99) mg/dL 06/21/17 06/21/17 Range/Units 16:57 21:04 PT (9.0-12.0) sec INR (<1.2) POC Glucose (mg/dL) 116 H 123 H (75-99) mg/dL Assessment and Plan Assessment: #1 atypical chest pain and shortness of breath with intermediate troponin level. Ruled out acute coronary syndrome #2 cough and congestion. No evidence of pneumonia. Rule out acute CHF. Not elevated BNP #3 atrial fibrillation paroxysmal with history of ablation. currently on anticoagulation #4 Coumadin coagulopathy with INR 5.3 #5 morbid obesity with a BMI 43 #6 diabetes type 2 [id number]-yttvvsrke #7 hypertension #8 degenerative joint disease #9 diabetic neuropathy Plan: Patient will be continued on telemetry monitoring. We will continue with the home medications and blood sugar control. Will hold Coumadin due to coagulopathy and monitor. Patient does not have any fever or chills or cough with sputum production. No antibiotics needed at this time. We will continue the current medications and further recommendations based on the clinical course and cardiology evaluation.
[2017-06-22] MEDS: Acetaminophen-Codeine 300-30mg TAB PO PRN ×4 (00:09→12:38)
[2017-06-22 01:22] VITALS: RESP 18
[2017-06-22 06:17] LABS: Glucose,Whole Blood 100 mg/dL (75-99)
[2017-06-22] MEDS: PREGABALIN 50 MG CAP PO SCH ×2 (08:32)
[2017-06-22] MEDS: LOSARTAN 50 MG TAB PO SCH (08:32)
[2017-06-22] MEDS: POTASSIUM CHLORIDE ER 10 MEQ TAB.ER.PRT PO SCH (08:34)
[2017-06-22] MEDS: FUROSEMIDE 40 MG TAB PO SCH (08:34)
[2017-06-22] MEDS: metFORMIN 500 MG TAB PO SCH (08:35)
[2017-06-22] MEDS ORDERED: ATORVASTATIN 40 MG TAB PO SCH (09:00)
[2017-06-22 11:28] VITALS: BP 162/74; PULSE 63; TEMP 96.7
--- NOTE | 2017-06-22 12:05 | P.PN ---
Subjective Progress Note Date: 06/22/17 Principal diagnosis: Chest pain and shortness of breath This is a 62-year-old gentleman who follows with Dr. Saucedo in the office. He has a past medical history significant for obesity, paroxysmal atrial fibrillation, borderline diabetes, hypertension, hyperlipidemia, he presented to the hospital with symptoms of fever and sputum production. Treatment for pneumonia. He was noted to have abnormality in his troponins, and for this reason was advised to undergo cardiac catheterization which was performed yesterday by Dr. Carranza. Catheterization revealed normal coronary arteries. Patient was seen and examined this morning, feels well, is quite eager to be discharged home today. Objective - Vital Signs Vital signs: Vital Signs Temp 96.7 F L 06/22/17 11:26 Pulse 63 06/22/17 11:26 Resp 18 06/22/17 11:26 BP 162/74 06/22/17 11:26 Pulse Ox 96 06/22/17 11:26 Intake & Output 06/21/17 06/22/17 06/22/17 18:59 06:59 18:59 Intake Total 892 Balance 892 Weight 146 kg Intake: IV 100 Intake, IV Titration 432 Amount Sodium Chloride 0.9% 1, 432 000 ml In Empty Bag 1 bag @ 1 ML/KG/HR 144.8 mls/ hr IV .Q6H55M ONE Rx#: [id number] Oral 360 Other: Voiding Method Toilet Toilet # Voids 1 - Exam PHYSICAL EXAMINATION: HEENT: Head is atraumatic, normocephalic. Pupils equal, round. Neck is supple. There is no elevated jugular venous pressure. HEART EXAMINATION: Heart S1, S2 normal. No murmur or gallop heard. CHEST EXAMINATION: Lungs are clear to auscultation and precussion. No chest wall tenderness is noted on palpation or with deep breathing. ABDOMEN: Soft, obese, nontender. Bowel sounds are heard. No organomegaly noted. EXTREMITIES: 2+ peripheral pulses with no evidence of peripheral edema and no calf tenderness noted. Right radial site clean and dry, good distal pulse. Evidence of ecchymosis, no hematoma. NEUROLOGIC patient is awake, alert and oriented -3. . - Labs CBC & Chem 7: 06/19/17 16:00 06/19/17 16:00 Labs: Abnormal Lab Results - Last 24 Hours (Table) 06/21/17 06/21/17 06/21/17 Range/Units 11:58 16:57 21:04 POC Glucose (mg/dL) 112 H 116 H 123 H (75-99) mg/dL 06/22/17 Range/Units 06:16 POC Glucose (mg/dL) 100 H (75-99) mg/dL Assessment and Plan Plan: Assessment and Plan #1 chest discomfort with abnormal troponin status post cardiac catheterization which revealed normal coronary arteries. #2 paroxysmal atrial fibrillation with prior ablation #3 morbid obesity #4 diabetes # 5 hypertension #6 hyperlipidemia #7 pneumonia Plan Patient may be able to be discharged home from cardiology's perspective, we will make him a follow-up appointment to see Dr. Ochoa in the office post discharge. DNP note has been reviewed, I agree with a documented findings and plan of care. Patient was seen and examined.
[2017-06-22 12:25] LABS: Glucose,Whole Blood 96 mg/dL (75-99)
[2017-06-22] MEDS: CHOLECALCIFEROL 1,000 UNIT TAB PO SCH (12:38)
--- NOTE | 2017-06-23 00:01 | P.DS ---
Providers Date of admission: 06/19/17 17:49 Expected date of discharge: 06/22/17 Attending physician: Andrzej Wyatt Consults: 06/19/17 17:49 Consult Physician Urgent Consulting Provider: Sami Hunter Consult Reason/Comments: Shortness of breath and elevated troponin and history of coronary artery di Do you want consulting provider notified?: Yes [facility] Course: Discharge diagnosis #1 atypical chest pain and shortness of breath with intermediate troponin level. Ruled out acute coronary syndrome #2 cough and congestion. No evidence of pneumonia. Rule out acute CHF. Not elevated BNP #3 atrial fibrillation paroxysmal with history of ablation. currently on anticoagulation #4 Coumadin coagulopathy with INR 5.3 #5 morbid obesity with a BMI 43 #6 diabetes type 2 upu-ojxbgrb-qsybrylak #7 hypertension #8 degenerative joint disease #9 diabetic neuropathy Hospital course Patient is a 62-year-old male with a known history of hypertension, diabetes type 2 [id number]-hyrvbtmft, history of atrial fibrillation status post ablation by Dr. Saucedo and morbid obesity came to the hospital with complaints of chest congestion and shortness of breath worsening for the past few days. Patient thought he was having pneumonia. Patient otherwise denied any chest pain. Patient does have cough with white sputum production. Patient denied any fever. Or chills. No nausea vomiting or abdominal pain. Otherwise has been feeling very weak. Patient is supposed to follow with his flight deck officer, Dr. Saucedo today. On admission chest x-ray showed no acute cardio pulmonary process. EKG showed normal sinus rhythm. With T-wave nonspecific changes Patient was found have slightly elevated troponin level D-dimer not elevated INR 5.3. 06/21/2017 Patient denied any complaints of chest pain today. Patient underwent recatheterization's which showed normal coronaries. INR came down to 2.8 today. Patient denied any shortness of breath. Anticipate discharge tomorrow. 06/22/2017 Patient denied any new complaints. Patient was continued on telemetry monitoring. continued with the home medications and blood sugar control. Did Coumadin due to coagulopathy and monitored INR. Patient does not have any fever or chills or cough with sputum production. No antibiotics needed at this time. Patient underwent cardiac catheter patient showed normal coronaries. Otherwise patient is stable to be discharged home. And follow with his flight deck officer as an outpatient. Discharge physical examination was done Patient Condition at Discharge: Good Plan - Discharge Summary New Discharge Prescriptions: Continue Furosemide [Lasix] 40 mg PO DAILY metFORMIN HCL [Glucophage] 500 mg PO BID Warfarin [Coumadin] 7.5 mg PO SUTUTH Warfarin Sodium 10 mg PO MOWEFRSA Potassium Chloride [Klor-Con M10] 10 meq PO DAILY [place]-3 Fatty Acids/Fish Oil [Fish Oil 1,000 mg Softgel] 1 cap PO DAILY Losartan Potassium 100 mg PO DAILY Acetaminophen-Codeine 300-30mg [Tylenol w/codeine #3] 1 tab PO Q4HR PRN PRN Reason: Pain Cyclobenzaprine [Flexeril] 10 mg PO TID PRN #15 tab PRN Reason: Muscle Spasm Atorvastatin Calcium [Lipitor] 40 mg PO DAILY Pregabalin [Lyrica] 50 mg PO Q8HR Cholecalciferol [Vitamin D3] 2,000 unit PO DAILY Discharge Medication List Furosemide [Lasix] 40 mg PO DAILY 07/07/14 [History] Potassium Chloride [Klor-Con M10] 10 meq PO DAILY 07/07/14 [History] Warfarin Sodium 10 mg PO MOWEFRSA 07/07/14 [History] Warfarin [Coumadin] 7.5 mg PO SUTUTH 07/07/14 [History] metFORMIN HCL [Glucophage] 500 mg PO BID 07/07/14 [History] Losartan Potassium 100 mg PO DAILY 09/06/14 [History] [place]-3 Fatty Acids/Fish Oil [Fish Oil 1,000 mg Softgel] 1 cap PO DAILY [History] Acetaminophen-Codeine 300-30mg [Tylenol w/codeine #3] 1 tab PO Q4HR PRN [History] Cyclobenzaprine [Flexeril] 10 mg PO TID PRN #15 tab 12/24/16 [Rx] Atorvastatin Calcium [Lipitor] 40 mg PO DAILY 06/19/17 [History] Cholecalciferol [Vitamin D3] 2,000 unit PO DAILY 06/19/17 [History] Pregabalin [Lyrica] 50 mg PO Q8HR 06/19/17 [History] Follow up Appointment(s)/Referral(s): Derek Saucedo MD [STAFF PHYSICIAN] - 1 Week (office will call with appointment date and time) Titi Purvis DO [Primary Care Provider] - 1-2 days (Patient is not a [facility] patient- he goes to [facility] office- Patient to make own follow up appointment) Patient Instructions/Handouts: Chest Pain (DC), After Radial Heart Catheterization (GEN) Activity/Diet/Wound Care/Special Instructions: Hold Metformin x48 hours Follow right wrist site care instruction sheet Discharge Disposition: HOME SELF-CARE
== END 2017-06-22 14:34 | disposition home or self-care (01) | DRG 287 ==
LOC: EC 15:04 → 6SEL 17:49
PROVIDERS: ADMIT Hospitalist; ATTEND Hospitalist
PROC: B2111ZZ Fluoroscopy of Multiple Coronary Arteries using Low Osmolar Contrast (ICD-10-PCS; principal; 2017-06-21 10:07)
PROC: 4A023N7 Measurement of Cardiac Sampling and Pressure, Left Heart, Percutaneous Approach (ICD-10-PCS; principal; 2017-06-21 10:07)
PROC: B2151ZZ Fluoroscopy of Left Heart using Low Osmolar Contrast (ICD-10-PCS; principal; 2017-06-21 10:07)
DX: R07.89 Other chest pain (principal); E11.40 Type 2 diabetes mellitus with diabetic neuropathy, unspecified; I25.10 Atherosclerotic heart disease of native coronary artery without angina pectoris; E66.01 Morbid (severe) obesity due to excess calories; E78.5 Hyperlipidemia, unspecified; F17.200 Nicotine dependence, unspecified, uncomplicated; I10 Essential (primary) hypertension; I48.0 Paroxysmal atrial fibrillation; J45.909 Unspecified asthma, uncomplicated; M19.90 Unspecified osteoarthritis, unspecified site; T45.515A Adverse effect of anticoagulants, initial encounter; Z79.899 Other long term (current) drug therapy; Z79.84 Long term (current) use of oral hypoglycemic drugs; Z88.6 Allergy status to analgesic agent; Z88.1 Allergy status to other antibiotic agents; Z88.8 Allergy status to other drugs, medicaments and biological substances
CPT/HCPCS: 36415; 71020; 80053; 80061; 82550; 82553; 83880; 84484; 85025; 85379; 85610; 85730; 93005; 93458; 99284

== ENCOUNTER 2018-08-25 08:34 | Observation (INO) | payer MEDICARE ==
[2018-08-25 08:43] VITALS: RESP 18
[2018-08-25] MEDS ORDERED: LORazepam 2 MG/ML INJ IV STA (09:06)
--- NOTE | 2018-08-25 09:09 | ED ---
General Adult HPI - General Chief complaint: Recheck/Abnormal Lab/Rx Stated complaint: High BP Time Seen by Provider: 08/25/18 08:46 Source: patient, RN notes reviewed Mode of arrival: ambulatory Limitations: no limitations - History of Present Illness Initial comments: Patient is a pleasant 63-year-old male presenting to the emergency Department with complaints regarding possible high blood pressure. Patient feels he may need his medication adjusted. Patient has not checked his blood pressure recently. Patient states he thinks that side because he feels anxious and feels his pulse. Patient denies any chest discomfort. There may be some mild dyspnea on exertion only. No weakness or confusion. Patient has seen his primary care physician since symptoms have started. Symptoms started approximately 5 months ago. 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 - Related Data Home Medications Medication Instructions Recorded Confirmed Warfarin Sodium 10 mg PO MOWEFRSA 07/07/14 08/25/18 Warfarin [Coumadin] 7.5 mg PO SUTUTH 07/07/14 08/25/18 metFORMIN HCL [Glucophage] 500 mg PO BID 07/07/14 08/25/18 Acetaminophen-Codeine 300-30mg 2 tab PO QID 11/21/15 08/25/18 [Tylenol w/codeine #3] Atorvastatin Calcium [Lipitor] 40 mg PO HS 06/19/17 08/25/18 Cholecalciferol [Vitamin D3] 2,000 unit PO DAILY 06/19/17 08/25/18 Albuterol Sulfate [Proair Hfa] 2 puff INHALATION RT-Q6H PRN 08/25/18 08/25/18 Cyclobenzaprine [Flexeril] 10 mg PO TID 08/25/18 08/25/18 Fish Oil/Dha/Epa [Fish Oil 1,200 1 cap PO DAILY 08/25/18 08/25/18 mg Fish Oil] Losartan Potassium 150 mg PO DAILY 08/25/18 08/25/18 Spironolactone 25 mg PO DAILY 08/25/18 08/25/18 Allergies Allergy/AdvReac Type Severity Reaction Status Date / Time NSAIDS (Non-Steroidal Allergy Unknown Unknown Verified 08/25/18 09:07 Anti-Inflamma Androgenic Anabolic Steroid Allergy Unknown Verified 08/25/18 09:07 azithromycin Allergy Unknown Verified 08/25/18 09:07 [From Zithromax Z-Boaz] ibuprofen [From Motrin] Allergy Unknown Verified 08/25/18 09:07 niacin Allergy Unknown Verified 08/25/18 09:07 aspirin AdvReac Intermediate Stomach Verified 08/25/18 09:07 Pain Review of Systems ROS Statement: Those systems with pertinent positive or pertinent negative responses have been documented in the HPI. ROS Other: All systems not noted in ROS Statement are negative. Constitutional: Denies: fever Eyes: Denies: eye pain ENT: Denies: ear pain Respiratory: Denies: cough, dyspnea Cardiovascular: Denies: chest pain Endocrine: Denies: fatigue Gastrointestinal: Denies: abdominal pain Genitourinary: Denies: dysuria Musculoskeletal: Denies: back pain Skin: Denies: rash Neurological: Denies: weakness Psychiatric: Reports: anxiety Past Medical History Past Medical History: Asthma, Diabetes Mellitus, Hyperlipidemia, Hypertension Additional Past Medical History / Comment(s): NEUROPATHY obsity History of Any Multi-Drug Resistant Organisms: None Reported Past Surgical History: Back Surgery, Cardiac Ablation, Ear Surgery, Orthopedic Surgery, Tonsillectomy Additional Past Surgical History / Comment(s): knee surgery, Past Anesthesia/Blood Transfusion Reactions: No Reported Reaction Past Psychological History: Anxiety Smoking Status: Current every day smoker - Past Family History Mother Family Medical History: Cancer General Exam Limitations: no limitations General appearance: alert, in no apparent distress Head exam: Present: atraumatic Eye exam: Present: normal appearance, PERRL ENT exam: Present: normal oropharynx Neck exam: Present: normal inspection Respiratory exam: Present: normal lung sounds bilaterally. Absent: chest wall tenderness Cardiovascular Exam: Present: regular rate, normal rhythm, normal heart sounds Expanded Peripheral pulses: 2+: Radial (R), Radial (L), Posterior Tibialis (R), Posterior Tibialis (L) GI/Abdominal exam: Present: soft. Absent: tenderness Extremities exam: Present: normal inspection. Absent: pedal edema, calf tenderness Neurological exam: Present: alert, oriented X3, CN II-XII intact. Absent: motor sensory deficit Psychiatric exam: Present: normal affect, normal mood Skin exam: Present: normal color Course Vital Signs 08/25/18 08/25/18 08/25/18 08:41 09:55 10:00 Temperature 98 F Pulse Rate 67 Respiratory 18 Rate Blood Pressure 166/73 147/80 147/80 O2 Sat by Pulse 99 Oximetry 08/25/18 08/25/18 08/25/18 10:20 10:40 11:00 Temperature Pulse Rate Respiratory Rate Blood Pressure 147/80 147/80 147/80 O2 Sat by Pulse Oximetry 08/25/18 11:18 Temperature Pulse Rate Respiratory 18 Rate Blood Pressure 147/80 O2 Sat by Pulse Oximetry EKG Findings - EKG Comments: EKG Findings:: Sinus rhythm at 63. For screening AV block with WA of 248. QRS 104. QT 408. QTC 417. Normal axis. Normal QRS. No acute ST change. Medical Decision Making - Medical Decision Making Patient reevaluated and is resting comfortably in bed. Secondary to elevation of troponin patient will need to stay for repeat enzymes and cardiac evaluation. Case was discussed in detail with Dr. Hdez, who will admit this MO Patient. - Lab Data Result diagrams: 08/25/18 11:07 08/25/18 11:07 Lab Results 08/25/18 08/25/18 08/25/18 Range/Units 09:39 11:07 11:07 WBC 7.2 (3.8-10.6) k/uL RBC 4.11 L (4.30-5.90) m/uL Hgb 12.8 L (13.0-17.5) gm/dL Hct 38.1 L (39.0-53.0) % MCV 92.6 (80.0-100.0) fL MCH 31.1 (25.0-35.0) pg MCHC 33.5 (31.0-37.0) g/dL RDW 12.6 (11.5-15.5) % Plt Count 147 L (150-450) k/uL Neutrophils % 67 % Lymphocytes % 23 % Monocytes % 5 % Eosinophils % 3 % Basophils % 1 % Neutrophils # 4.8 (1.3-7.7) k/uL Lymphocytes # 1.7 (1.0-4.8) k/uL Monocytes # 0.3 (0-1.0) k/uL Eosinophils # 0.2 (0-0.7) k/uL Basophils # 0.0 (0-0.2) k/uL PT (9.0-12.0) sec INR (<1.2) APTT (22.0-30.0) sec Sodium (137-145) mmol/L Potassium (3.5-5.1) mmol/L Chloride (98-107) mmol/L Carbon Dioxide (22-30) mmol/L Anion Gap mmol/L BUN (9-20) mg/dL Creatinine (0.66-1.25) mg/dL Est GFR (CKD-EPI)AfAm (>60 ml/min/1.73 sqM) Est GFR (CKD-EPI)NonAf (>60 ml/min/1.73 sqM) Glucose (74-99) mg/dL Calcium (8.4-10.2) mg/dL Magnesium (1.6-2.3) mg/dL Total Bilirubin (0.2-1.3) mg/dL AST (17-59) U/L ALT (21-72) U/L Alkaline Phosphatase (38-126) U/L Total Creatine Kinase 95 (55-170) U/L CK-MB (CK-2) 1.6 (0.0-2.4) ng/mL CK-MB (CK-2) Rel Index 1.7 Troponin I 0.041 H* (0.000-0.034) ng/mL Total Protein (6.3-8.2) g/dL Albumin (3.5-5.0) g/dL TSH (0.465-4.680) mIU/L Free T4 (0.78-2.19) ng/dL Free T3 pg/mL (2.8-5.3) pg/ml Urine Color Colorless Urine Appearance Clear (Clear) Urine pH 6.5 (5.0-8.0) Ur Specific Clark 1.003 (1.001-1.035) Urine Protein Negative (Negative) Urine Glucose (UA) Negative (Negative) Urine Ketones Negative (Negative) Urine Blood Negative (Negative) Urine Nitrite Negative (Negative) Urine Bilirubin Negative (Negative) Urine Urobilinogen <2.0 (<2.0) mg/dL Ur Leukocyte Esterase Negative (Negative) 08/25/18 08/25/18 Range/Units 11:07 11:07 WBC (3.8-10.6) k/uL RBC (4.30-5.90) m/uL Hgb (13.0-17.5) gm/dL Hct (39.0-53.0) % MCV (80.0-100.0) fL MCH (25.0-35.0) pg MCHC (31.0-37.0) g/dL RDW (11.5-15.5) % Plt Count (150-450) k/uL Neutrophils % % Lymphocytes % % Monocytes % % Eosinophils % % Basophils % % Neutrophils # (1.3-7.7) k/uL Lymphocytes # (1.0-4.8) k/uL Monocytes # (0-1.0) k/uL Eosinophils # (0-0.7) k/uL Basophils # (0-0.2) k/uL PT 15.5 H (9.0-12.0) sec INR 1.5 H (<1.2) APTT 25.7 (22.0-30.0) sec Sodium 139 (137-145) mmol/L Potassium 4.8 (3.5-5.1) mmol/L Chloride 108 H (98-107) mmol/L Carbon Dioxide 27 (22-30) mmol/L Anion Gap 4 mmol/L BUN 18 (9-20) mg/dL Creatinine 0.89 (0.66-1.25) mg/dL Est GFR (CKD-EPI)AfAm >90 (>60 ml/min/1.73 sqM) Est GFR (CKD-EPI)NonAf >90 (>60 ml/min/1.73 sqM) Glucose 96 (74-99) mg/dL Calcium 9.2 (8.4-10.2) mg/dL Magnesium 1.8 (1.6-2.3) mg/dL Total Bilirubin 0.5 (0.2-1.3) mg/dL AST 19 (17-59) U/L ALT 22 (21-72) U/L Alkaline Phosphatase 54 (38-126) U/L Total Creatine Kinase (55-170) U/L CK-MB (CK-2) (0.0-2.4) ng/mL CK-MB (CK-2) Rel Index Troponin I (0.000-0.034) ng/mL Total Protein 6.3 (6.3-8.2) g/dL Albumin 3.8 (3.5-5.0) g/dL TSH 2.050 (0.465-4.680) mIU/L Free T4 0.84 (0.78-2.19) ng/dL Free T3 pg/mL 3.1 (2.8-5.3) pg/ml Urine Color Urine Appearance (Clear) Urine pH (5.0-8.0) Ur Specific Clark (1.001-1.035) Urine Protein (Negative) Urine Glucose (UA) (Negative) Urine Ketones (Negative) Urine Blood (Negative) Urine Nitrite (Negative) Urine Bilirubin (Negative) Urine Urobilinogen (<2.0) mg/dL Ur Leukocyte Esterase (Negative) Disposition Clinical Impression: Dyspnea Disposition: ADMITTED IP TO THIS HOSP Is patient prescribed a controlled substance at d/c from ED?: No Referrals: [facility] [Primary Care Provider] - 1-2 days Decision Time: 13:19
--- NOTE | 2018-08-25 10:25 | XR ---
EXAMINATION TYPE: XR chest 2V DATE OF EXAM: 08/25/2018 COMPARISON: 06/19/2017 HISTORY: Hypertension and dysrhythmia TECHNIQUE: Frontal and lateral views of the chest are obtained. FINDINGS: Coarsened interstitial lung markings are chronic. Cardia mediastinal silhouette is again m ildly enlarged. No new focal consolidation, pleural effusion or pneumothorax is seen. Osseous structu res are grossly intact with moderate degenerative changes of the thoracic spine. Flattening of the di aphragms on the lateral image suggests underlying COPD. IMPRESSION: Chronic findings with no acute cardiac pulmonary process.
[2018-08-25 10:33] LABS: Appearance,Urine Clear (Clear); Bilirubin,Urine Negative (Negative); Blood,Urine Negative (Negative); Color,Urine Colorless; Glucose,Urine (UA) Negative (Negative); Ketones,Urine Negative (Negative); Leukocyte Esterase,Urine Negative (Negative); Nitrite,Urine Negative (Negative); PH, Urine 6.5 (5.0-8.0); Protein,Urine Negative (Negative); Specific Gravity,Urine 1.003 (1.001-1.035); Urobilinogen,Urine <2.0 mg/dL (<2.0)
[2018-08-25 11:25] LABS: Basophils % (A) 1 %; Eosinophils # (A) 0.2 k/uL (0-0.7); Eosinophils % (A) 3 %; HCT 38.1 % (39.0-53.0); HGB 12.8 gm/dL (13.0-17.5); Lymphocytes # (A) 1.7 k/uL (1.0-4.8); Lymphocytes % (A) 23 %; MCH 31.1 pg (25.0-35.0); MCHC 33.5 g/dL (31.0-37.0); MCV 92.6 fL (80.0-100.0); Mean Platelet Volume 8.3; Monocytes # (A) 0.3 k/uL (0-1.0); Monocytes % (A) 5 %; Neutrophils # (A) 4.8 k/uL (1.3-7.7); Neutrophils % (A) 67 %; Platelet Count 147 k/uL (150-450); RBC 4.11 m/uL (4.30-5.90); RDW 12.6 % (11.5-15.5); WBC 7.2 k/uL (3.8-10.6)
[2018-08-25 11:33] LABS: ALT 22 U/L (21-72); AST 19 U/L (17-59); Albumin 3.8 g/dL (3.5-5.0); Alkaline Phosphatase 54 U/L (38-126); Blood Urea Nitrogen 18 mg/dL (9-20); Calcium 9.2 mg/dL (8.4-10.2); Chloride 108 mmol/L (98-107); Glucose 96 mg/dL (74-99); Magnesium 1.8 mg/dL (1.6-2.3); Potassium 4.8 mmol/L (3.5-5.1); Sodium 139 mmol/L (137-145); Total Bilirubin 0.5 mg/dL (0.2-1.3); Total Protein 6.3 g/dL (6.3-8.2)
[2018-08-25 11:39] LABS: INR 1.5 (<1.2); Partial Thromboplastin Time 25.7 sec (22.0-30.0); Prothrombin Time 15.5 sec (9.0-12.0)
[2018-08-25 11:53] LABS: T4, Free (Free Thyroxine) 0.84 ng/dL (0.78-2.19)
[2018-08-25 12:00] LABS: Creatine Kinase MB 1.6 ng/mL (0.0-2.4)
[2018-08-25 12:03] LABS: Troponin I 0.041 ng/mL (0.000-0.034)
[2018-08-25 12:06] LABS: Anion Gap 4 mmol/L; Carbon Dioxide 27 mmol/L (22-30)
[2018-08-25] MEDS ORDERED: NITROGLYCERIN SL TABS 0.4 MG TAB SUBLINGUAL PRN (13:19)
[2018-08-25] MEDS ORDERED: ASPIRIN 81 MG PO STA (13:19)
[2018-08-25] MEDS: Acetaminophen-Codeine 300-30mg TAB PO SCH ×3 (16:02→22:03)
[2018-08-25] MEDS: CYCLOBENZAPRINE 10 MG TAB PO SCH ×2 (16:02→22:02)
[2018-08-25 16:46] LABS: Glucose,Whole Blood 111 mg/dL (75-99)
[2018-08-25] MEDS: INSULIN ASPART 100 UNIT/ML 1 ML 10 ML VIAL SQ SCH ×2 (17:05→22:02)
[2018-08-25] MEDS ORDERED: WARFARIN 5 MG TAB PO ONE (18:00)
[2018-08-25] MEDS: amLODIPine 10 MG TAB PO SCH (18:08)
--- NOTE | 2018-08-25 18:14 | CONS ---
CONSULTATION CHIEF COMPLAINT: Uncontrolled hypertension and shortness of breath. HISTORY OF PRESENT ILLNESS: Mr. Gomez is a 63-year-old gentleman with history of paroxysmal atrial fibrillation status post ablation, who was on long-term Coumadin, non-insulin dependent diabetes and hypertension who presented to hospital with poorly controlled blood pressures. He has been having trouble [facility] He came to our emergency room where his blood pressures are in the 150s systolic. He underwent lab testing and troponin was done that was mildly elevated due to which he is admitted to hospital. There is a questionable history of shortness of breath. At the time of my evaluation, patient appears comfortable at rest, hemodynamically stable and is free of symptoms. INR is subtherapeutic at 1.5. They are resuming his Coumadin doses. EKG shows sinus rhythm with first-degree AV block. His blood pressure is poorly controlled, I am going to put the patient back on the losartan that he was on and start him on amlodipine 10 mg daily. I will obtain a 2D echo to evaluate his LV function. I am not quite sure what to make of the elevated troponin in this patient who does not have chest pain or significant shortness of breath. We will do a D-dimer to make sure that he does not have pulmonary embolism. We will also obtain further troponins on him. PAST MEDICAL HISTORY: Significant for hypertension, paroxysmal atrial fibrillation and dyslipidemia. MEDICATIONS: Include Lipitor 40 daily, Aldactone 25 daily, ProAir, losartan 150 daily, metformin 500 b.i.d., Flexeril 10 t.i.d., and Coumadin. ALLERGIES: THE PATIENT IS ALLERGIC TO STEROIDS, Z-GALDINO, MOTRIN, NIACIN AND ASPIRIN. FAMILY HISTORY: Negative for premature coronary artery disease. SOCIAL HISTORY: Negative for current smoking, EtOH abuse, or drug abuse. REVIEW OF SYSTEMS: HEENT is unremarkable. Cardiac as described above. Respiratory negative. GI negative. negative. ALLERGY/IMMUNOLOGY: Negative. Skin negative. MUSCULOSKELETAL: Significant for arthritis. PSYCHOSOCIAL: Negative. ENDOCRINE: Negative. DERM: Negative. CONSTITUTIONAL negative. ONCOLOGICAL: Negative. Rest of the system review is not relevant. EXAM: Patient is afebrile. Heart rate is 60. Blood pressure is 160/72, respiratory rate is 18, O2 sat is 96% on room air. There is no jugular venous distention. Carotid upstroke is normal. There is no bruit. Chest exam reveals good air entry bilaterally. Heart exam reveals first and second heart sounds. An S4 is heard. Abdomen is soft. Exam of extremities did not reveal any edema. Peripheral pulses are felt. LAB: Show a hemoglobin of 12.8. INR is subtherapeutic at 1.5, creatinine is 0.8. Troponin is mildly elevated at 0.041. ASSESSMENT: 1. Uncontrolled hypertension. 2. Elevated troponin of unclear clinical significance. 3. Shortness of breath. PLAN: We will obtain a 2D echo. Follow serial troponins. Optimize antihypertensives. MMODL / IJN: [id number] /
[2018-08-25 18:41] LABS: Creatine Kinase MB 1.6 ng/mL (0.0-2.4)
[2018-08-25 19:22] LABS: Troponin I 0.052 ng/mL (0.000-0.034)
--- NOTE | 2018-08-25 19:34 | P.HPIM ---
History of Present Illness this is a pleasant 63 yo M wi pmh of atrial fibrillation, asthma , copd, diabetes mellitus, hyperlipidemia , hypertension , diabetic neuropathy , obesity , chronic cervical and back pain , L4-5 fracture s/p back surgery , who present because he was feeling unwell , then check his own blood pressure and it was high 183/80 and he felt persistent "heart pounding" or palpitation. so he came to emergency room. his palpitation stopped after medication given to him as per pt. pt deneis chest pain , no dyspnea , no dizziness. no change in urine or bowel habits. EKG: sinus rhythm. with first degree av block. on presentation his blood pressure was 166/73. labs showed unremarkable cbc and BMP except for mild anemia. troponin elevated: 0.041-0.052. troponin is chronically elevated close to this range. Review of Systems CONSTITUTIONAL: No fever, no malaise, no fatigue. HEENT: No recent visual problems or hearing problems. Denied any sore throat. CARDIOVASCULAR: No orthopnea, PND, no palpitations, no syncope. PULMONARY: No shortness of breath, no cough, no hemoptysis. GASTROINTESTINAL: No diarrhea, no nausea, no vomiting, no abdominal pain. Normoactive bowel sounds. NEUROLOGICAL: No headaches, no weakness, no numbness. HEMATOLOGICAL: Denies any bleeding or petechiae. GENITOURINARY: Denies any burning micturition, frequency, or urgency. MUSCULOSKELETAL/RHEUMATOLOGICAL: Denies any joint pain, swelling, or any muscle pain. ENDOCRINE: Denies any polyuria or polydipsia. Past Medical History Past Medical History: Asthma, Diabetes Mellitus, Hyperlipidemia, Hypertension Additional Past Medical History / Comment(s): NEUROPATHY obsity History of Any Multi-Drug Resistant Organisms: None Reported Past Surgical History: Back Surgery, Cardiac Ablation, Ear Surgery, Orthopedic Surgery, Tonsillectomy Additional Past Surgical History / Comment(s): knee surgery, Past Anesthesia/Blood Transfusion Reactions: No Reported Reaction Past Psychological History: Anxiety Smoking Status: Current every day smoker - Past Family History Mother Family Medical History: Cancer Father Family Medical History: Cancer Additional Family Medical History / Comment(s): Father of lung cancer. He was a smoker. Medications and Allergies Home Medications Medication Instructions Recorded Confirmed Type RX: Warfarin Sodium 10 mg PO MOWEFRSA 07/07/14 08/25/18 History RX: Warfarin [Coumadin] 7.5 mg PO SUTUTH 07/07/14 08/25/18 History RX: metFORMIN HCL [Glucophage] 500 mg PO BID 07/07/14 08/25/18 History RX: Acetaminophen-Codeine 300-30mg 2 tab PO QID 11/21/15 08/25/18 History [Tylenol w/codeine #3] RX: Atorvastatin Calcium [Lipitor] 40 mg PO HS 06/19/17 08/25/18 History RX: Cholecalciferol [Vitamin D3] 2,000 unit PO DAILY 06/19/17 08/25/18 History Albuterol Sulfate [Proair Hfa] 2 puff INHALATION RT-Q6H PRN 08/25/18 08/25/18 History Fish Oil/Dha/Epa [Fish Oil 1,200 1 cap PO DAILY 08/25/18 08/25/18 History mg Fish Oil] RX: Cyclobenzaprine [Flexeril] 10 mg PO TID 08/25/18 08/25/18 History RX: Losartan Potassium 150 mg PO DAILY 08/25/18 08/25/18 History RX: Spironolactone 25 mg PO DAILY 08/25/18 08/25/18 History Allergies Allergy/AdvReac Type Severity Reaction Status Date / Time NSAIDS (Non-Steroidal Allergy Unknown Unknown Verified 08/25/18 09:07 Anti-Inflamma Androgenic Anabolic Steroid Allergy Unknown Verified 08/25/18 09:07 azithromycin Allergy Unknown Verified 08/25/18 09:07 [From Zithromax Z-Boaz] ibuprofen [From Motrin] Allergy Unknown Verified 08/25/18 09:07 niacin Allergy Unknown Verified 08/25/18 09:07 aspirin AdvReac Intermediate Stomach Verified 08/25/18 09:07 Pain Physical Exam Vitals: Vital Signs Temp Pulse Resp BP Pulse Ox 08/25/18 11:30 141/77 08/25/18 11:18 18 147/80 08/25/18 11:00 147/80 08/25/18 10:40 147/80 08/25/18 10:20 147/80 08/25/18 10:00 147/80 08/25/18 09:55 147/80 08/25/18 08:41 98 F 67 18 166/73 99 Intake and Output 0108/25/18 08/25/18 22:59 06:59 14:59 Other: Weight 151.046 kg GENERAL: The patient is alert and oriented x3, not in any acute distress. Well developed, well nourished. HEENT: Pupils are round and equally reacting to light. EOMI. No scleral icterus. No conjunctival pallor. Normocephalic, atraumatic. No pharyngeal erythema. No thyromegaly. CARDIOVASCULAR: S1 and S2 present. No murmurs, rubs, or gallops. PULMONARY: Chest is clear to auscultation, no wheezing or crackles. ABDOMEN: Soft, nontender, nondistended, normoactive bowel sounds. No palpable organomegaly. MUSCULOSKELETAL: No joint swelling or deformity. EXTREMITIES: No cyanosis, clubbing, or pedal edema. NEUROLOGICAL: Gross neurological examination did not reveal any focal deficits. SKIN: No rashes. Results CBC & Chem 7: 08/25/18 11:07 08/25/18 11:07 Labs: Abnormal Lab Results - Last 24 Hours (Table) 08/25/18 08/25/18 08/25/18 Range/Units 11:07 11:07 11:07 RBC 4.11 L (4.30-5.90) m/uL Hgb 12.8 L (13.0-17.5) gm/dL Hct 38.1 L (39.0-53.0) % Plt Count 147 L (150-450) k/uL PT (9.0-12.0) sec INR (<1.2) Chloride 108 H (98-107) mmol/L Troponin I 0.041 H* (0.000-0.034) ng/mL 08/25/18 Range/Units 11:07 RBC (4.30-5.90) m/uL Hgb (13.0-17.5) gm/dL Hct (39.0-53.0) % Plt Count (150-450) k/uL PT 15.5 H (9.0-12.0) sec INR 1.5 H (<1.2) Chloride (98-107) mmol/L Troponin I (0.000-0.034) ng/mL Assessment and Plan Plan: this is a pleasant 63 o M who presents with palpitation with chronically elevated troponin. keep monitoring pt .cardiology consult. Labs and medication were reviewed.. Continue same treatment. Continue with symptomatic treatment. Resume home medication. Monitor lytes and vitals. DVT and GI prophylaxis. Further recommendations of the clinical course of the patient DVT prophylaxis: Subcutaneous heparin GI Prophylaxis: Pepcid PT/OT: Pending
[2018-08-25] MEDS ORDERED: ALBUTEROL NEBULIZED 2.5 MG/3 ML INHALATION PRN (20:07)
[2018-08-25 20:45] LABS: Glucose,Whole Blood 143 mg/dL (75-99)
[2018-08-25] MEDS ORDERED: ATORVASTATIN 40 MG TAB PO SCH (21:00)
[2018-08-26 00:11] LABS: Creatine Kinase MB 1.5 ng/mL (0.0-2.4)
[2018-08-26 00:22] LABS: Troponin I 0.04 ng/mL (0.000-0.034)
[2018-08-26] MEDS: Acetaminophen-Codeine 300-30mg TAB PO SCH ×3 (03:02→15:00)
[2018-08-26 04:57] LABS: Hemoglobin A1C 5.7 % (4.0-6.0)
[2018-08-26 05:58] LABS: Glucose,Whole Blood 94 mg/dL (75-99)
[2018-08-26] MEDS: INSULIN ASPART 100 UNIT/ML 1 ML 10 ML VIAL SQ SCH ×2 (06:04→11:34)
[2018-08-26 06:28] LABS: Anion Gap 6 mmol/L; Blood Urea Nitrogen 17 mg/dL (9-20); Calcium 9.3 mg/dL (8.4-10.2); Carbon Dioxide 29 mmol/L (22-30); Chloride 104 mmol/L (98-107); Cholesterol 124 mg/dL (<200); Glucose 92 mg/dL (74-99); HDL Cholesterol 50 mg/dL (40-60); INR 1.5 (<1.2); LDL Cholesterol,Calculated 49 mg/dL (0-99); Potassium 4.4 mmol/L (3.5-5.1); Prothrombin Time 15.2 sec (9.0-12.0); Sodium 139 mmol/L (137-145); Triglycerides 124 mg/dL (<150)
[2018-08-26 06:52] LABS: Basophils % (A) 1 %; Eosinophils # (A) 0.2 k/uL (0-0.7); Eosinophils % (A) 3 %; HCT 38.5 % (39.0-53.0); HGB 12.6 gm/dL (13.0-17.5); Lymphocytes # (A) 2.1 k/uL (1.0-4.8); Lymphocytes % (A) 29 %; MCH 30.5 pg (25.0-35.0); MCHC 32.6 g/dL (31.0-37.0); MCV 93.5 fL (80.0-100.0); Monocytes # (A) 0.4 k/uL (0-1.0); Monocytes % (A) 5 %; Neutrophils # (A) 4.5 k/uL (1.3-7.7); Neutrophils % (A) 61 %; Platelet Count 153 k/uL (150-450); RBC 4.12 m/uL (4.30-5.90); RDW 12.7 % (11.5-15.5); WBC 7.3 k/uL (3.8-10.6)
[2018-08-26] MEDS: amLODIPine 10 MG TAB PO SCH (08:17)
[2018-08-26] MEDS: CYCLOBENZAPRINE 10 MG TAB PO SCH ×2 (08:17→15:00)
[2018-08-26] MEDS ORDERED: LOSARTAN 50 MG TAB PO SCH (09:00)
[2018-08-26] MEDS ORDERED: ASPIRIN 325 MG TAB PO SCH (09:00)
--- NOTE | 2018-08-26 10:42 | ECHOF ---
Referral Reason:LV function MEASUREMENTS -------- HEIGHT: 182.9 cm WEIGHT: 147.9 kg BP: 145/72 RVIDd: 3.0 cm (< 3.3) IVSd: 2.0 cm (0.6 - 1.1) LVIDd: 3.3 cm (3.9 - 5.3) LVPWd: 2.2 cm (0.6 - 1.1) IVSs: 2.4 cm LVIDs: 2.2 cm LVPWs: 2.4 cm Ao Diam: 3.1 cm (2.0 - 3.7) AV Cusp: 2.2 cm (1.5 - 2.6) LA Diam: 4.1 cm (2.7 - 3.8) MV EXCURSION: 13.275 mm (> 18.000) MV EF SLOPE: 70 mm/s (70 - 150) EPSS: 0.7 cm MV E Loi: 0.78 m/s MV DecT: 239 ms MV A Loi: 0.80 m/s MV E/A Ratio: 0.97 RAP: 5.00 mmHg RVSP: 9.49 mmHg FINDINGS -------- Sinus rhythm. This was a technically difficult study with suboptimal views. The left ventricular size is normal. There is severe concentric left ventricular hypertrophy. Ove rall left ventricular systolic function is normal with, an EF between 55 - 60 %. The right ventricle is normal in size and function. The left atrium is mildly dilated. The right atrium is normal in size. Lumason used The aortic valve is trileaflet, and appears structurally normal. No aortic stenosis or regurgitation. There is trace mitral regurgitation. Trace tricuspid regurgitation present. The right ventricular systolic pressure, as measured by Dopp ler, is 9.49mmHg. Pulmonic valve appears structurally normal. The aortic root size is normal. IVC Not well visulized. The pericardium is normal. CONCLUSIONS -------- 1. Sinus rhythm. 2. This was a technically difficult study with suboptimal views. 3. The left ventricular size is normal. 4. There is severe concentric left ventricular hypertrophy. 5. Overall left ventricular systolic function is normal with, an EF between 55 - 60 %. 6. The right ventricle is normal in size and function. 7. The left atrium is mildly dilated. 8. The right atrium is normal in size. 9. Lumason used 10. The aortic valve is trileaflet, and appears structurally normal. No aortic stenosis or regurgitat ion. 11. There is trace mitral regurgitation. 12. Trace tricuspid regurgitation present. 13. The right ventricular systolic pressure, as measured by Doppler, is 9.49mmHg. 14. Pulmonic valve appears structurally normal. 15. The aortic root size is normal. 16. IVC Not well visulized. 17. The pericardium is normal. ICT DEVELOPMENT MANAGER: Yessica Tang RDCS
--- NOTE | 2018-08-26 10:56 | P.PN ---
Subjective Progress Note Date: 08/26/18 This is a 63-year-old gentleman with history of paroxysmal atrial fibrillation, status post prior ablation, on Coumadin at home, non-insulin- dependent diabetes, hypertension, hyperlipidemia, obesity, who presented to the hospital with poorly controlled blood pressures. His INR on admission here was subtherapeutic at 1.5, his EKG showed a normal sinus rhythm with first-degree AV block. Medication adjustments were made yesterday by Dr. Bhatti who saw the patient in consultation. An echocardiogram with Doppler study has also been requested. A d-dimer was obtained which came back to be negative. The patient was seen and examined this morning, feels well, eager to be discharged home today. Echocardiogram with Doppler study was obtained, ejection fraction of 55- 60%. Blood pressure this morning 142/66, heart rate in the 60s, 96% on room air. White blood cell count 7.3, hemoglobin 12.6, platelet count 153. INR today is 1.5, sodium 139, potassium 4.4, BUN 17 and creatinine 0.8. Troponins 0.04, 0.05, 0.04. Abnormality in troponin could be secondary to supply and demand mismatch. It is noted that on the patient's prior admission his troponins in similar range. Objective - Vital Signs Vital signs: Vital Signs Temp 98.1 F 08/26/18 08:00 Pulse 58 L 08/26/18 08:00 Resp 18 08/26/18 08:00 BP 143/67 08/26/18 08:00 Pulse Ox 97 08/26/18 08:15 Intake & Output 08/25/18 08/26/18 08/26/18 18:59 06:59 18:59 Intake Total 240 118 Balance 240 118 Weight 151.046 kg 148.2 kg Intake: Oral 240 118 Other: Voiding Method Toilet # Voids 1 - Exam PHYSICAL EXAMINATION: GENERAL: 63-year-old gentleman in no acute distress at the time of my examination HEENT: Head is atraumatic, normocephalic. Pupils equal, round. Sclera anicteric. Conjunctiva are clear. Mucous membranes of the mouth are moist. Neck is supple. There is no elevated jugular venous pressure. No carotid bruit is heard. HEART EXAMINATION: Heart S1, S2 normal. No murmur or gallop heard. CHEST EXAMINATION: Lungs are clear to auscultation and precussion. No chest wall tenderness is noted on palpation or with deep breathing. ABDOMEN: Soft, obese, nontender. Bowel sounds are heard. No organomegaly noted. EXTREMITIES: 2+ peripheral pulses with no evidence of peripheral edema and no calf tenderness noted. NEUROLOGIC patient is awake, alert and oriented 3 . . - Labs CBC & Chem 7: 08/26/18 05:39 08/26/18 05:39 Labs: Abnormal Lab Results - Last 24 Hours (Table) 08/25/18 08/25/18 08/25/18 Range/Units 11:07 11:07 11:07 RBC 4.11 L (4.30-5.90) m/uL Hgb 12.8 L (13.0-17.5) gm/dL Hct 38.1 L (39.0-53.0) % Plt Count 147 L (150-450) k/uL PT (9.0-12.0) sec INR (<1.2) Chloride 108 H (98-107) mmol/L POC Glucose (mg/dL) (75-99) mg/dL Troponin I 0.041 H* (0.000-0.034) ng/mL 08/25/18 08/25/18 08/25/18 Range/Units 11:07 16:44 17:18 RBC (4.30-5.90) m/uL Hgb (13.0-17.5) gm/dL Hct (39.0-53.0) % Plt Count (150-450) k/uL PT 15.5 H (9.0-12.0) sec INR 1.5 H (<1.2) Chloride (98-107) mmol/L POC Glucose (mg/dL) 111 H (75-99) mg/dL Troponin I 0.052 H* (0.000-0.034) ng/mL 08/25/18 08/25/18 08/26/18 Range/Units 20:44 22:30 05:39 RBC 4.12 L (4.30-5.90) m/uL Hgb 12.6 L (13.0-17.5) gm/dL Hct 38.5 L (39.0-53.0) % Plt Count (150-450) k/uL PT (9.0-12.0) sec INR (<1.2) Chloride (98-107) mmol/L POC Glucose (mg/dL) 143 H (75-99) mg/dL Troponin I 0.040 H* (0.000-0.034) ng/mL 08/26/18 Range/Units 05:39 RBC (4.30-5.90) m/uL Hgb (13.0-17.5) gm/dL Hct (39.0-53.0) % Plt Count (150-450) k/uL PT 15.2 H (9.0-12.0) sec INR 1.5 H (<1.2) Chloride (98-107) mmol/L POC Glucose (mg/dL) (75-99) mg/dL Troponin I (0.000-0.034) ng/mL Assessment and Plan Plan: Assessment and plan #1 uncontrolled hypertension #2 abnormality in troponin, likely secondary to supply and demand mismatch. On prior admission patient was also noted to have similar abnormality in troponin. Echo revealed a normal left ventricular systolic function. #2 symptoms of shortness of breath, no evidence of congestive cardiac failure. D-dimer negative. #3 paroxysmal atrial fibrillation status post prior ablation, on Coumadin for anticoagulation, subtherapeutic on admission. #4 hyperlipidemia #5 diabetes #6 obesity Plan Echocardiogram with Doppler study was performed which revealed a normal left ventricular systolic function. We will continue with current medications, blood pressure under much better control today. Adjustments need to be made in the patient's Coumadin dose, he has been instructed to follow his INRs closely as an outpatient. Follow-up appointment with Dr. Saucedo in the office. DNP note has been reviewed, I agree with a documented findings and plan of care. Patient was seen and examined.
[2018-08-26 11:33] LABS: Glucose,Whole Blood 114 mg/dL (75-99)
[2018-08-26 15:49] VITALS: BP 131/64; PULSE 58; TEMP 97.7
[2018-08-26 16:32] LABS: Glucose,Whole Blood 104 mg/dL (75-99)
[2018-08-26] MEDS ORDERED: WARFARIN 5 MG TAB PO ONE (18:00)
--- NOTE | 2018-09-07 11:34 | P.DS ---
Providers Date of admission: 08/25/18 13:21 Attending physician: Pina Hdez Consults: 08/25/18 13:20 Consult Physician Urgent Consulting Provider: Audie Davis Consult Reason/Comments: Cardiac evaluation Do you want consulting provider notified?: Yes Primary care physician: [facility] Hospital Course: this is a pleasant 63 yo M wiht pmh of atrial fibrillation, asthma , copd, diabetes mellitus, hyperlipidemia , hypertension , diabetic neuropathy , obesity , chronic cervical and back pain , L4-5 fracture s/p back surgery , he presents because of palpitation, uncontrolled hypertension and elevated troponin. EKG: sinus rhythm. with first degree av block. on presentation his blood pressure was 166/73. labs showed unremarkable cbc and BMP except for mild anemia. troponin elevated: 0.041-0.052. troponin is chronically elevated close to this range. Patient denies chest pain or dyspnea on presentation no dizziness. cardiology team evaluated the patient. D-dimer was within normal limits. Echocardiogram:revealed a normal left ventricular systolic function. Patient blood pressure medication was adjusted Losartan 50 mg Norvasc 10 mg were added and his blood pressure Better controlled. For example today 143/67 with heart rate 58. Patient remains with no chest pain or other symptoms. no more palpitation Patient was cleared by cardiology team for discharge Problems and management plan was discussed with the patient and he verbalized understanding and acceptance Patient was found stable and can be discharged home however he needs follow-up as an outpatient physical exam Gen.: Patient alert awake and oriented X 3, NOT IN DISTRESS CVS: s1-s2, RRR, no murmur CHEST:bilateral CTA, no wheezing or crepitation Abdomen: Soft, no tenderness, no distention, positive bowel sounds Extremities: No leg edema or induration Time spent more than 35 minutes Plan - Discharge Summary Discharge Rx Participant: No New Discharge Prescriptions: No Action metFORMIN HCL [Glucophage] 500 mg PO BID Warfarin [Coumadin] 7.5 mg PO SUTUTH Warfarin Sodium 10 mg PO MOWEFRSA Acetaminophen-Codeine 300-30mg [Tylenol w/codeine #3] 2 tab PO QID Atorvastatin Calcium [Lipitor] 40 mg PO HS Cholecalciferol [Vitamin D3] 2,000 unit PO DAILY Spironolactone 25 mg PO DAILY Albuterol Sulfate [Proair Hfa] 2 puff INHALATION RT-Q6H PRN PRN Reason: Shortness Of Breath Losartan Potassium 150 mg PO DAILY Cyclobenzaprine [Flexeril] 10 mg PO TID Fish Oil/Dha/Epa [Fish Oil 1,200 mg Fish Oil] 1 cap PO DAILY Discharge Medication List Warfarin Sodium 10 mg PO MOWEFRSA 07/07/14 [History] Warfarin [Coumadin] 7.5 mg PO SUTUTH 07/07/14 [History] metFORMIN HCL [Glucophage] 500 mg PO BID 07/07/14 [History] Acetaminophen-Codeine 300-30mg [Tylenol w/codeine #3] 2 tab PO QID 11/21/15 [ History] Atorvastatin Calcium [Lipitor] 40 mg PO HS 06/19/17 [History] Cholecalciferol [Vitamin D3] 2,000 unit PO DAILY 06/19/17 [History] Albuterol Sulfate [Proair Hfa] 2 puff INHALATION RT-Q6H PRN 08/25/18 [History] Cyclobenzaprine [Flexeril] 10 mg PO TID 08/25/18 [History] Fish Oil/Dha/Epa [Fish Oil 1,200 mg Fish Oil] 1 cap PO DAILY 08/25/18 [History] Losartan Potassium 150 mg PO DAILY 08/25/18 [History] Spironolactone 25 mg PO DAILY 08/25/18 [History] Follow up Appointment(s)/Referral(s): Derek Saucedo MD [STAFF PHYSICIAN] - 1 Week [facility],Clinic [Primary Care Provider] - 1-2 days
== END 2018-08-26 17:47 | disposition home health service (06) ==
LOC: EC 08:34 → 1SOBS 13:21 → INTOOBSV 13:21 → 3SCARD 13:21 → UNDOADMOB 13:21
PROVIDERS: ADMIT Internal Medicine; ATTEND Internal Medicine
DX: I10 Essential (primary) hypertension (principal); R77.8 Other specified abnormalities of plasma proteins; I48.0 Paroxysmal atrial fibrillation; E78.5 Hyperlipidemia, unspecified; J44.9 Chronic obstructive pulmonary disease, unspecified; D64.9 Anemia, unspecified; I44.0 Atrioventricular block, first degree; E11.40 Type 2 diabetes mellitus with diabetic neuropathy, unspecified; E66.9 Obesity, unspecified; F41.9 Anxiety disorder, unspecified; F17.200 Nicotine dependence, unspecified, uncomplicated; M54.2 Cervicalgia; M54.9 Dorsalgia, unspecified; G89.29 Other chronic pain; Z79.01 Long term (current) use of anticoagulants; Z68.42 Body mass index [BMI] 45.0-49.9, adult; Z79.84 Long term (current) use of oral hypoglycemic drugs; Z79.891 Long term (current) use of opiate analgesic; Z79.899 Other long term (current) drug therapy; Z88.6 Allergy status to analgesic agent; Z88.1 Allergy status to other antibiotic agents; Z80.1 Family history of malignant neoplasm of trachea, bronchus and lung
CPT/HCPCS: 96374; 99284; 36415; 93005; 85379; 84439; 84481; 80061; 80053; 80048; 82550; 82553; 83735; 84443; 84484; 85025 ×2; 85610 ×2; 85730; 81003; 83036; 71046; G0378 ×3; C8929; J2060; Q9950; 93306

== ENCOUNTER 2018-12-24 08:49 | Emergency (ER) | payer MEDICARE ==
[2018-12-24 08:54] VITALS: BP 130/59; PULSE 53; RESP 22; TEMP 97.9
--- NOTE | 2018-12-24 09:07 | ED ---
Lower Extremity Injury HPI - General Chief Complaint: Extremity Injury, Lower Stated Complaint: rt knee pain Time Seen by Provider: 12/24/18 08:54 Source: patient Mode of arrival: wheelchair Limitations: physical limitation - History of Present Illness Initial Comments: 63-year-old male presenting today for chief complaint of right knee pain. Patient states he has significant arthritis in the left knee. He states he has had previous arthroscopic surgery on one of his knees he is not sure which one. He states that he has had no surgeries recently. He states about a week ago he woke up and noticed pain when he weight bear or fully flexed at the right knee. Patient states he is able to slightly range without pain however full range of motion. Pt denies any knee or leg swelling. He denies any coolness or pallor of the extremity. He describe the pain as sharp and localized the the anterior and lateral aspect of knee, denies diffuse pain or pain to the posterior aspect of the knee. Denies radiation of pain. Denies hip or back pain. Pt was concerned he had someone "stress fracture" of his right knee, he staets he has not fallen or injured the leg to his knowledge he denies bruising or warmth of the knee. Pt used cane to ambulate. Pt denies fever, chills nightsweatst or general malaise. When pain persisted today, with no change in intensity he presented for evaluation. - Related Data Home Medications Medication Instructions Recorded Confirmed Warfarin Sodium 10 mg PO MOWEFRSA 07/07/14 12/24/18 Warfarin [Coumadin] 7.5 mg PO SUTUTH 07/07/14 12/24/18 metFORMIN HCL [Glucophage] 500 mg PO BID 07/07/14 12/24/18 Acetaminophen-Codeine 300-30mg 2 tab PO QID 11/21/15 12/24/18 [Tylenol w/codeine #3] Atorvastatin Calcium [Lipitor] 40 mg PO HS 06/19/17 12/24/18 Cholecalciferol [Vitamin D3 (25 2,000 unit PO DAILY 06/19/17 12/24/18 Mcg = 1000 Iu)] Albuterol Sulfate [Proair Hfa] 2 puff INHALATION RT-Q6H PRN 08/25/18 12/24/18 Cyclobenzaprine [Flexeril] 10 mg PO TID 08/25/18 12/24/18 Fish Oil/Dha/Epa [Fish Oil 1,200 1 cap PO DAILY 08/25/18 12/24/18 mg Fish Oil] Losartan Potassium 150 mg PO DAILY 08/25/18 12/24/18 Spironolactone 25 mg PO DAILY 08/25/18 12/24/18 Previous Rx's Medication Instructions Recorded amLODIPine [Norvasc] 10 mg PO DAILY #30 tab 08/26/18 Allergies Allergy/AdvReac Type Severity Reaction Status Date / Time NSAIDS (Non-Steroidal Allergy Unknown Unknown Verified 12/24/18 09:02 Anti-Inflamma Androgenic Anabolic Steroid Allergy Unknown Verified 12/24/18 09:02 aspirin Allergy Stomach Verified 12/24/18 09:02 Pain azithromycin Allergy Unknown Verified 12/24/18 09:02 [From Zithromax Z-Boaz] ibuprofen [From Motrin] Allergy Unknown Verified 12/24/18 09:02 niacin Allergy Unknown Verified 12/24/18 09:02 Review of Systems ROS Statement: Those systems with pertinent positive or pertinent negative responses have been documented in the HPI. ROS Other: All systems not noted in ROS Statement are negative. Past Medical History Past Medical History: Asthma, Diabetes Mellitus, Hyperlipidemia, Hypertension Additional Past Medical History / Comment(s): NEUROPATHY obsity History of Any Multi-Drug Resistant Organisms: None Reported Past Surgical History: Back Surgery, Cardiac Ablation, Ear Surgery, Orthopedic Surgery, Tonsillectomy Additional Past Surgical History / Comment(s): knee surgery, Past Anesthesia/Blood Transfusion Reactions: No Reported Reaction Past Psychological History: Anxiety Smoking Status: Current every day smoker Past Alcohol Use History: None Reported Past Drug Use History: None Reported - Past Family History Mother Family Medical History: Cancer Father Family Medical History: Cancer Additional Family Medical History / Comment(s): Father of lung cancer. He was a smoker. General Exam - General Exam Comments Initial Comments: General: The patient is awake and alert, in no distress, and does not appear acutely ill. Eye: Pupils are equal, round and reactive to light, extra-ocular movements are intact. No nystagmus. There is normal conjunctiva bilaterally. No signs of ic terus. Ears, nose, mouth and throat: There are moist mucous membranes and no oral lesions. Neck: The neck is supple, there is no tenderness or JVD. Cardiovascular: There is a regular rate and rhythm. No murmur, rub or gallop is appreciated. Respiratory: Lungs are clear to auscultation, respirations are non-labored, breath sounds are equal. No wheezes, stridor, rales, or rhonchi. Musculoskeletal: Normal ROM, no tenderness at the hips and ankles b/l. Strength 5/5. Sensation intact. DP pulses equal bilaterally 2+. No LE edema. no swelling of the knees b/l, redness or warmth to palpation. Appear equal in comparison. Pt is able to both slightly flex and extend at the right knee more pain with full flexion than full extension. Pt does this both actively and passively. No pain to palpation of the calf or posterior knee. There is tenderness across knee joint mostly on the lateral aspect. Neurological: A&O x 3. CN II-XII intact, There are no obvious motor or sensory deficits. Coordination appears grossly intact. Speech is normal. Skin: Skin is warm and dry and no rashes or lesions are noted. Psychiatric: Cooperative, appropriate mood & affect, normal judgment. Limitations: physical limitation Course Vital Signs 12/24/18 08:50 Temperature 97.9 F Pulse Rate 53 L Respiratory 22 Rate Blood Pressure 130/59 O2 Sat by Pulse 98 Oximetry Medical Decision Making - Medical Decision Making 63-year-old male presenting today for chief complaint of right knee pain. Patient has history of osteoarthritis. Patient is able to range with pain at the full extension and flexion. Patient is able to weight-bear. Patient has no swelling erythema or warmth to palpation of the joint. Neurovascularly intact. Patient denies any constitutional symptoms. There are no signs concerning for septic arthritis on examination. Crepitus on exam concerning for arthritic process. Imaging studies show extensive arthritis of the right knee. At this time do feel this is cause of patient's pain. Patient is instructed to take home medications, use walker and f/u with outpatient orthopedic surgery. Patient is agreeable with care plan and discharged at this time. Did discuss the case with tyDr. Gregorio and reviewedall imaging studies personally Disposition Clinical Impression: Right knee pain, Arthritis of knee, right Disposition: HOME SELF-CARE Instructions (If sedation given, give patient instructions): Knee Pain (ED) Additional Instructions: Please use medication as discussed. Please follow-up with family doctor in the next 2 days, and orthopedic surgery within the next week. Please return to emergency room if the symptoms increase or worsen or for any other concerns. Is patient prescribed a controlled substance at d/c from ED?: No Referrals: [facility],Clinic [Primary Care Provider] - 1-2 days Elijah Sims MD [STAFF PHYSICIAN] - 1-2 days Time of Disposition: 10:09
--- NOTE | 2018-12-24 09:18 | XR ---
EXAMINATION TYPE: XR knee complete RT DATE OF EXAM: 12/24/2018 CLINICAL HISTORY: Right knee pain for one week with no known injury TECHNIQUE: Three views of the right knee are obtained. COMPARISON: 01/10/2013 FINDINGS: There is no acute fracture/dislocation evident in right knee. The tri-compartment joint s paces demonstrate tricompartmental joint space narrowing most pronounced in the patellofemoral compar tment and medial compartment as well as moderate marginal osteophytes and tibial plateau sclerosis of the medial compartment. No suprapatellar joint effusion. The overlying soft tissue appears unremark able. IMPRESSION: There is no acute fracture or dislocation in the right knee. Moderate tricompartmental a rthropathy advanced from the prior of 01/10/2013.
[2018-12-24] MEDS ORDERED: MORPHINE SULFATE 2 MG/ML SYRINGE IM STA (10:06)
== END 2018-12-24 10:25 | disposition home or self-care (01) ==
LOC: EC 08:49
DX: M17.0 Bilateral primary osteoarthritis of knee (principal); J45.909 Unspecified asthma, uncomplicated; E11.40 Type 2 diabetes mellitus with diabetic neuropathy, unspecified; E78.5 Hyperlipidemia, unspecified; I10 Essential (primary) hypertension; F17.200 Nicotine dependence, unspecified, uncomplicated; Z88.1 Allergy status to other antibiotic agents; Z88.6 Allergy status to analgesic agent; Z88.8 Allergy status to other drugs, medicaments and biological substances; Z79.01 Long term (current) use of anticoagulants; Z79.84 Long term (current) use of oral hypoglycemic drugs; Z79.891 Long term (current) use of opiate analgesic; Z79.899 Other long term (current) drug therapy; Z98.890 Other specified postprocedural states
CPT/HCPCS: 73562; 99283; 96372; J2270

== ENCOUNTER 2018-12-26 13:24 | Emergency (ER) | payer OTHER, MEDICARE ==
[2018-12-26 13:37] VITALS: BP 110/62; PULSE 51; RESP 18; TEMP 98
--- NOTE | 2018-12-26 13:54 | ED ---
Extremity Problem HPI - General Chief complaint: Extremity Problem,Nontraumatic Stated complaint: possible blood clot Time Seen by Provider: 12/26/18 13:49 Source: patient, RN notes reviewed, old records reviewed Mode of arrival: wheelchair Limitations: no limitations - History of Present Illness Initial comments: This is a 63-year-old male the ER for evaluation. They presents for evaluation regards to knee pain leg pain right lower extremity pain. Patient had 2 days ago for same complaint. Had x-ray which is negative. Patient follow-up in urgent care family doctor and was sent in for evaluation of possible DVT. Denies shortness of breath or chest pain. No prior history of DVT. No other complaints MD Complaint: extremity pain (Right lower) -: days(s) Location: right, lower extremity History of Same: Yes Radiation: none Quality: aching Consistency: constant Worsens with: weight bearing, walking Associated Symptoms: denies other symptoms - Related Data Home Medications Medication Instructions Recorded Confirmed Warfarin Sodium 10 mg PO MOWEFRSA 07/07/14 12/24/18 Warfarin [Coumadin] 7.5 mg PO SUTUTH 07/07/14 12/24/18 metFORMIN HCL [Glucophage] 500 mg PO BID 07/07/14 12/24/18 Acetaminophen-Codeine 300-30mg 2 tab PO QID 11/21/15 12/24/18 [Tylenol w/codeine #3] Atorvastatin Calcium [Lipitor] 40 mg PO HS 06/19/17 12/24/18 Cholecalciferol [Vitamin D3 (25 2,000 unit PO DAILY 06/19/17 12/24/18 Mcg = 1000 Iu)] Albuterol Sulfate [Proair Hfa] 2 puff INHALATION RT-Q6H PRN 08/25/18 12/24/18 Cyclobenzaprine [Flexeril] 10 mg PO TID 08/25/18 12/24/18 Fish Oil/Dha/Epa [Fish Oil 1,200 1 cap PO DAILY 08/25/18 12/24/18 mg Fish Oil] Losartan Potassium 150 mg PO DAILY 08/25/18 12/24/18 Spironolactone 25 mg PO DAILY 08/25/18 12/24/18 Previous Rx's Medication Instructions Recorded amLODIPine [Norvasc] 10 mg PO DAILY #30 tab 08/26/18 Allergies Allergy/AdvReac Type Severity Reaction Status Date / Time NSAIDS (Non-Steroidal Allergy Unknown Unknown Verified 12/24/18 09:02 Anti-Inflamma Androgenic Anabolic Steroid Allergy Unknown Verified 12/24/18 09:02 aspirin Allergy Stomach Verified 12/24/18 09:02 Pain azithromycin Allergy Unknown Verified 12/24/18 09:02 [From Zithromax Z-Boaz] ibuprofen [From Motrin] Allergy Unknown Verified 12/24/18 09:02 niacin Allergy Unknown Verified 12/24/18 09:02 Review of Systems ROS Statement: Those systems with pertinent positive or pertinent negative responses have been documented in the HPI. ROS Other: All systems not noted in ROS Statement are negative. Past Medical History Past Medical History: Asthma, Diabetes Mellitus, Hyperlipidemia, Hypertension Additional Past Medical History / Comment(s): NEUROPATHY obsity History of Any Multi-Drug Resistant Organisms: None Reported Past Surgical History: Back Surgery, Cardiac Ablation, Ear Surgery, Orthopedic Surgery, Tonsillectomy Additional Past Surgical History / Comment(s): knee surgery, Past Anesthesia/Blood Transfusion Reactions: No Reported Reaction Past Psychological History: Anxiety Smoking Status: Current every day smoker Past Alcohol Use History: None Reported Past Drug Use History: None Reported - Past Family History Mother Family Medical History: Cancer Father Family Medical History: Cancer Additional Family Medical History / Comment(s): Father of lung cancer. He was a smoker. General Exam Limitations: no limitations General appearance: alert, in no apparent distress Head exam: Present: atraumatic, normocephalic, normal inspection Eye exam: Present: normal appearance, PERRL, EOMI. Absent: scleral icterus, conjunctival injection, periorbital swelling ENT exam: Present: normal exam, mucous membranes moist Neck exam: Present: normal inspection. Absent: tenderness, meningismus, lymphadenopathy Respiratory exam: Present: normal lung sounds bilaterally. Absent: respiratory distress, wheezes, rales, rhonchi, stridor Cardiovascular Exam: Present: regular rate, normal rhythm, normal heart sounds. Absent: systolic murmur, diastolic murmur, rubs, gallop, clicks GI/Abdominal exam: Present: soft, normal bowel sounds. Absent: distended, t enderness, guarding, rebound, rigid Extremities exam: Present: normal inspection, full ROM, normal capillary refill. Absent: tenderness, pedal edema, joint swelling, calf tenderness Back exam: Present: normal inspection Neurological exam: Present: alert, oriented X3, CN II-XII intact Psychiatric exam: Present: normal affect, normal mood Skin exam: Present: warm, dry, intact, normal color. Absent: rash Course Vital Signs 12/26/18 13:32 Temperature 98 F Pulse Rate 51 L Respiratory 18 Rate Blood Pressure 110/62 O2 Sat by Pulse 98 Oximetry - Reevaluation(s) Reevaluation #1: 12/26/18 15:38 Medical record including prior ER visits are reviewed Medical Decision Making - Medical Decision Making 63 male the ER with right lower extremity pain. X-ray which is negative, ultrasound today is negative, patient has positive pulses dorsalis pedis posterior tibialis. No other neurological signs or findings. Patient can be discharged home - Radiology Data Radiology results: report reviewed (Ultrasound right lower extremity negative for acute disease no DVT), image reviewed Disposition Clinical Impression: Right knee pain, Arthritis of knee, right Disposition: HOME SELF-CARE Condition: Good Instructions (If sedation given, give patient instructions): Knee Pain (ED) Is patient prescribed a controlled substance at d/c from ED?: No Referrals: [facility],Clinic [Primary Care Provider] - 1-2 days
--- NOTE | 2018-12-26 14:43 | US ---
EXAMINATION TYPE: US venous doppler duplex LE RT DATE OF EXAM: 12/26/2018 2:33 PM COMPARISON: NONE CLINICAL HISTORY: Pain. Right knee pain SIDE PERFORMED: right TECHNIQUE: The lower extremity deep venous system is examined utilizing real time linear array sonog singh with graded compression, doppler sonography and color-flow sonography. VESSELS IMAGED: External Iliac Vein (EIV) Common Femoral Vein Deep Femoral Vein Greater Saphenous Vein * Femoral Vein Popliteal Vein Small Saphenous Vein * Proximal Calf Veins (* superficial vessels) Grayscale, color doppler, spectral doppler imaging performed of the deep veins of the right lower ext remity. There is normal flow, compressibility, vascular waveforms. Right Leg: No evidence of DVT as visualized. Technical limitations due to patient's body habitus, garcía swan evaluation of vessels at groin IMPRESSION: Technically limited exam secondary to patient body habitus however no gross evidence of deep venous arthrosis is seen in the visualized portions of the right lower extremity.
== END 2018-12-26 15:30 | disposition home or self-care (01) ==
LOC: EC 13:24
DX: M17.11 Unilateral primary osteoarthritis, right knee (principal); E11.40 Type 2 diabetes mellitus with diabetic neuropathy, unspecified; J45.909 Unspecified asthma, uncomplicated; E78.5 Hyperlipidemia, unspecified; I10 Essential (primary) hypertension; F17.200 Nicotine dependence, unspecified, uncomplicated; Z79.01 Long term (current) use of anticoagulants; Z79.84 Long term (current) use of oral hypoglycemic drugs; Z79.899 Other long term (current) drug therapy; Z88.1 Allergy status to other antibiotic agents; Z88.8 Allergy status to other drugs, medicaments and biological substances; Z88.6 Allergy status to analgesic agent
CPT/HCPCS: 99284

== ENCOUNTER 2022-08-15 22:02 | Inpatient (IN) | payer MEDICARE, OTHER ==
[2022-08-15] MEDS ORDERED: SODIUM BICARB 8.4% 50 ML SYR (1 MEQ/ML) IV STA ×2 (22:14)
[2022-08-15] MEDS ORDERED: SODIUM CHLORIDE 0.9% 1,000 ML IV STA ×2 (22:14)
[2022-08-15] MEDS ORDERED: CALCIUM CHLORIDE 100 MG/ML 10 ML SYRINGE IVP STA (22:14)
[2022-08-15] MEDS ORDERED: ALBUTEROL NEBULIZED 2.5 MG/3 ML INHALATION STA (22:15)
[2022-08-15] MEDS ORDERED: ATROPINE SULFATE 0.4 MG/ML 1 ML VIAL IV STA (22:16)
[2022-08-15] MEDS ORDERED: ATROPINE SULFATE 0.1 MG/ML 10ML SYRINGE IV STA (22:16)
[2022-08-15 22:18] LABS: Glucose,Whole Blood 192 mg/dL (70-110)
[2022-08-15] MEDS: DEXTROSE 50% SYRINGE 50 ML IVP STA ×2 (22:18→22:27)
[2022-08-15] MEDS: INSULIN REGULAR 100 UNIT/ML VIAL (IV) IV ONE ×2 (22:19→22:27)
[2022-08-15 22:25] LABS: VBG PH 7.33 (7.31-7.41)
[2022-08-15] MEDS ORDERED: methylPREDNISolone SOD SUCCI 125 MG/2 ML VIAL IV STA (22:25)
[2022-08-15 22:26] LABS: Basophils # (A) 0.1 k/uL (0-0.2); Basophils % (A) 1 %; Eosinophils # (A) 0.2 k/uL (0-0.7); Eosinophils % (A) 2 %; HCT 39.2 % (39.0-53.0); HGB 13.1 gm/dL (13.0-17.5); Lymphocytes # (A) 2.3 k/uL (1.0-4.8); Lymphocytes % (A) 23 %; MCH 31.7 pg (25.0-35.0); MCHC 33.5 g/dL (31.0-37.0); MCV 94.5 fL (80.0-100.0); Mean Platelet Volume 9.5; Monocytes # (A) 0.6 k/uL (0-1.0); Monocytes % (A) 6 %; Neutrophils # (A) 6.9 k/uL (1.3-7.7); Neutrophils % (A) 67 %; Platelet Count 183 k/uL (150-450); RBC 4.15 m/uL (4.30-5.90); RDW 12.4 % (11.5-15.5); WBC 10.3 k/uL (3.8-10.6)
[2022-08-15] MEDS ORDERED: LORazepam 2 MG/ML INJ IV STA (22:28)
[2022-08-15 22:35] LABS: Albumin 3.5 g/dL (3.5-5.0); Calcium 7.6 mg/dL (8.4-10.2); Magnesium 1.7 mg/dL (1.6-2.3); Total Bilirubin 0.3 mg/dL (0.2-1.3); Total Protein 5.8 g/dL (6.3-8.2)
[2022-08-15 22:41] LABS: INR 2.3 (<1.2); Partial Thromboplastin Time 22.2 sec (22.0-30.0); Prothrombin Time 22.3 sec (9.0-12.0)
--- NOTE | 2022-08-15 22:43 | ED ---
Syncope HPI - General Chief Complaint: Syncope Stated Complaint: cardiac Time Seen by Provider: 08/15/22 22:13 Source: patient, family, RN notes reviewed, old records reviewed Mode of arrival: EMS Limitations: no limitations - History of Present Illness Initial Comments: This is a 67-year-old male presented today for evaluation of a syncopal event. Patient has history of cardiac disease history of H a fibrillation history of cardiac ablation. Patient felt very weak very syncopal event daughter believes the patient was significantly unresponsive and lost pulses she did start CPR on arrival EMS did find heart rate and pulse significantly bradycardic but remaining mental status on EMS arrival. Patient remains in a positive mental status here in the ER on arrival with low heart rate and maintaining blood pressure MD Complaint: loss of consciousness, felt faint, collapsed -: minutes(s) Prodromal Symptoms: lightheaded, palpitations, shortness of breath -: second(s) Witnessed: yes - by bystander, yes - by EMS Injuries Sustained Associated with Event: None Current Symptoms: back to baseline, lightheaded History: previous syncopal episode Context: at rest - Related Data Home Medications Medication Instructions Recorded Confirmed metFORMIN HCL [Glucophage] 500 mg PO BID 07/07/14 08/15/22 Acetaminophen-Codeine 300-30mg 2 tab PO Q6H PRN 11/21/15 08/15/22 [Tylenol w/codeine #3] Atorvastatin Calcium [Lipitor] 20 mg PO HS 06/19/17 08/15/22 Albuterol Sulfate [Proair Hfa] 2 puff INHALATION RT-Q6H PRN 08/25/18 08/15/22 Cyclobenzaprine [Flexeril] 10 mg PO TID 08/25/18 08/15/22 Spironolactone 25 mg PO DAILY 08/25/18 08/15/22 Cholecalciferol [Vitamin D3 (25 50 mcg PO DAILY 08/15/22 08/15/22 Mcg = 1000 Iu)] Metoprolol Tartrate [Lopressor] 12.5 mg PO DAILY 08/15/22 08/15/22 Valsartan 320 mg PO DAILY 08/15/22 08/15/22 Warfarin [Coumadin] 7.5 mg PO MOWEFR 08/15/22 08/15/22 Warfarin [Coumadin] 10 mg PO SUTUTHSA 08/15/22 08/15/22 Previous Rx's Medication Instructions Recorded amLODIPine [Norvasc] 10 mg PO DAILY #30 tab 08/26/18 Allergies Allergy/AdvReac Type Severity Reaction Status Date / Time NSAIDS (Non-Steroidal Allergy Unknown Unknown Verified 08/15/22 23:26 Anti-Inflamma Androgenic Anabolic Steroid Allergy Unknown Verified 08/15/22 23:26 aspirin Allergy Stomach Verified 08/15/22 23:26 Pain azithromycin Allergy Unknown Verified 08/15/22 23:26 [From Zithromax Z-Boaz] ibuprofen [From Motrin] Allergy Unknown Verified 08/15/22 23:26 niacin Allergy Unknown Verified 08/15/22 23:26 Review of Systems ROS Statement: Those systems with pertinent positive or pertinent negative responses have been documented in the HPI. ROS Other: All systems not noted in ROS Statement are negative. Past Medical History Past Medical History: Asthma, Diabetes Mellitus, Hyperlipidemia, Hypertension Additional Past Medical History / Comment(s): NEUROPATHY obsity History of Any Multi-Drug Resistant Organisms: None Reported Past Surgical History: Back Surgery, Cardiac Ablation, Ear Surgery, Orthopedic Surgery, Tonsillectomy Additional Past Surgical History / Comment(s): knee surgery, Past Anesthesia/Blood Transfusion Reactions: No Reported Reaction Past Psychological History: Anxiety Past Alcohol Use History: None Reported Past Drug Use History: None Reported - Past Family History Mother Family Medical History: Cancer Father Family Medical History: Cancer Additional Family Medical History / Comment(s): Father of lung cancer. He was a smoker. General Exam Limitations: no limitations General appearance: alert, anxious, in distress, obese Head exam: Present: atraumatic, normocephalic, normal inspection Eye exam: Present: normal appearance, PERRL, EOMI. Absent: scleral icterus, conjunctival injection, periorbital swelling ENT exam: Present: normal exam, mucous membranes moist Neck exam: Present: normal inspection. Absent: tenderness, meningismus, lymphad enopathy Respiratory exam: Present: normal lung sounds bilaterally. Absent: respiratory distress, wheezes, rales, rhonchi, stridor Cardiovascular Exam: Present: bradycardia, normal heart sounds. Absent: systolic murmur, diastolic murmur, rubs, gallop, clicks GI/Abdominal exam: Present: soft, normal bowel sounds. Absent: distended, tenderness, guarding, rebound, rigid Extremities exam: Present: normal inspection, full ROM, normal capillary refill. Absent: tenderness, pedal edema, joint swelling, calf tenderness Back exam: Present: normal inspection Neurological exam: Present: alert, oriented X3, CN II-XII intact Psychiatric exam: Present: normal affect, normal mood Skin exam: Present: warm, dry, intact, normal color. Absent: rash Course Vital Signs 08/15/22 08/15/22 08/15/22 22:03 22:26 22:40 Temperature 98.3 F Pulse Rate 30 L 30 L 31 L Respiratory 20 Rate Blood Pressure 127/49 O2 Sat by Pulse 100 Oximetry - Reevaluation(s) Reevaluation #1: 08/15/22 23:22 Medical record is reviewed Reevaluation #2: 08/15/22 23:22 Patient has no improvement in heart rate here in the ER maintaining blood pressure Cardiology they are aware of this patient Reevaluation #3: 08/15/22 23:22 Patient informed results questions have been answered Reevaluation #4: 08/15/22 23:23 Differential Syncope: Valvular disease, hypertrophic cardiomyopathy, pulmonary embolism, tamponade, tachycardia, bradycardia, MD, hypovolemia, hemorrhage, dissection, anemia, intracranial hemorrhage, seizure, hypoglycemia, carbon monoxide poisoning, this is not meant to be an all-inclusive list. Reevaluation #5: 08/15/22 23:23 Was pt. sent in by a medical professional or institution? @ -no Did you speak to anyone other than the patient for history? @ -EMS, daghter Did you review nursing and triage notes? @ -agree Were old charts reviewed? @ -prior EKG and cardiac cath report herepr Differential Diagnosis? @ - prior EKG interpreted by me (3pts min.)? @ -yesyes X-rays interpreted by me (1pt min.)? @ -[none] CT interpreted by me (1pt min.)? @ -[none] U/S interpreted by me (1pt. min.)? @ -[none] What testing was considered but not performed? (CT, X-rays, U/S, labs)? Why? @ no What meds were considered but not given? Why? @ -[none] Did you discuss the management of the patient with other professionals? @ -Cardiology head refrigeration engineer, ICU head refrigeration engineer Did you reconcile home meds? @ -[none] Was smoking cessation discussed for >3mins.? @ -[none] Was critical care preformed (if so, how long)? @ -[none] Were there social determinants of health that impacted care today? How? (Homelessness, low income, unemployed, alcoholism, drug addiction, transportation, low edu. Level, literacy, decrease access to med. care, nursing home, rehab)? @ -no Was there de-escalation of care discussed even if they declined? (Discuss DNR or withdrawal of care, Hospice)? @ -no What co-morbidities impacted this encounter? (DM, HTN, Smoking, COPD, CAD, Cancer, CVA, Hep., AIDS, mental health diagnosis, sleep apnea, morbid obesity)? @ -no Was patient admitted / discharged? @ -[hospital course] Undiagnosed new problem with uncertain prognosis? @ -[none] Drug Therapy requiring intensive monitoring for toxicity (Heparin, Nitro, Insulin, Cardizem)? @ -[none] Were any procedures done? @ -[none] Diagnosis/symptom? @ -[default] Acute, or Chronic, or Acute on Chronic? @ -acute Uncomplicated (without systemic symptoms) or Complicated (systemic symptoms)? @ -[default] Side effects of treatment? @ -[none] Exacerbation, Progression, or Severe Exacerbation] @ -[no] Poses a threat to life or bodily function? @ -yes - Consultations Consultation #1: Spoke with cardiology aware of this patient Consultation #2: Spoke with ICU who is also aware of this patient Consultation #3: Spoke with sound physicians who agreed to admit this patient EKG Findings - EKG Comments: EKG Findings:: EKG is sinus bradycardia 27 PM 148 QRS 154 QTc 435 Medical Decision Making - Medical Decision Making 67 male to the ER for evaluation of severe bradycardia maintaining blood pressure mental status and a syncopal event, daughter did state or think patient cardiac arrest and didn't do CPR patient was severely bradycardic on EMS arriv al - Lab Data Result diagrams: 08/15/22 22:22 08/15/22 22:22 Lab Results 08/15/22 08/15/22 08/15/22 Range/Units 22:16 22:22 22:22 WBC 10.3 (3.8-10.6) k/uL RBC 4.15 L (4.30-5.90) m/uL Hgb 13.1 (13.0-17.5) gm/dL Hct 39.2 (39.0-53.0) % MCV 94.5 (80.0-100.0) fL MCH 31.7 (25.0-35.0) pg MCHC 33.5 (31.0-37.0) g/dL RDW 12.4 (11.5-15.5) % Plt Count 183 (150-450) k/uL MPV 9.5 Neutrophils % 67 % Lymphocytes % 23 % Monocytes % 6 % Eosinophils % 2 % Basophils % 1 % Neutrophils # 6.9 (1.3-7.7) k/uL Lymphocytes # 2.3 (1.0-4.8) k/uL Monocytes # 0.6 (0-1.0) k/uL Eosinophils # 0.2 (0-0.7) k/uL Basophils # 0.1 (0-0.2) k/uL PT 22.3 H (9.0-12.0) sec INR 2.3 H (<1.2) APTT 22.2 (22.0-30.0) sec VBG pH (7.31-7.41) VBG pCO2 (37-51) mmHg VBG HCO3 (24-28) mmol/L Sodium (137-145) mmol/L Potassium (3.5-5.1) mmol/L Chloride (98-107) mmol/L Carbon Dioxide (22-30) mmol/L Anion Gap mmol/L BUN (9-20) mg/dL Creatinine (0.66-1.25) mg/dL Est GFR (CKD-EPI)AfAm (>60 ml/min/1.73 sqM) Est GFR (CKD-EPI)NonAf (>60 ml/min/1.73 sqM) Glucose (74-99) mg/dL POC Glucose (mg/dL) 192 H (70-110) mg/dL POC Glu It Help Desk Technician ID Yael Deras Calcium (8.4-10.2) mg/dL Phosphorus (2.5-4.5) mg/dL Magnesium (1.6-2.3) mg/dL Total Bilirubin (0.2-1.3) mg/dL AST (17-59) U/L ALT (4-49) U/L Alkaline Phosphatase (38-126) U/L Troponin I (0.000-0.034) ng/mL NT-Pro-B Natriuret Pep pg/mL Total Protein (6.3-8.2) g/dL Albumin (3.5-5.0) g/dL Urine Color Urine Appearance (Clear) Urine pH (5.0-8.0) Ur Specific [place] (1.001-1.035) Urine Protein (Negative) Urine Glucose (UA) (Negative) Urine Ketones (Negative) Urine Blood (Negative) Urine Nitrite (Negative) Urine Bilirubin (Negative) Urine Urobilinogen (<2.0) mg/dL Ur Leukocyte Esterase (Negative) Urine RBC (0-5) /hpf Urine WBC (0-5) /hpf Ur Squamous Epith Cells (0-4) /hpf Cellular Casts (0) /lpf Hyaline Casts (0-2) /lpf Urine Mucus (None) /hpf 08/15/22 08/15/22 08/15/22 Range/Units 22:22 22:22 22:22 WBC (3.8-10.6) k/uL RBC (4.30-5.90) m/uL Hgb (13.0-17.5) gm/dL Hct (39.0-53.0) % MCV (80.0-100.0) fL MCH (25.0-35.0) pg MCHC (31.0-37.0) g/dL RDW (11.5-15.5) % Plt Count (150-450) k/uL MPV Neutrophils % % Lymphocytes % % Monocytes % % Eosinophils % % Basophils % % Neutrophils # (1.3-7.7) k/uL Lymphocytes # (1.0-4.8) k/uL Monocytes # (0-1.0) k/uL Eosinophils # (0-0.7) k/uL Basophils # (0-0.2) k/uL PT (9.0-12.0) sec INR (<1.2) APTT (22.0-30.0) sec VBG pH (7.31-7.41) VBG pCO2 (37-51) mmHg VBG HCO3 (24-28) mmol/L Sodium 138 (137-145) mmol/L Potassium 5.0 (3.5-5.1) mmol/L Chloride 111 H (98-107) mmol/L Carbon Dioxide 20 L (22-30) mmol/L Anion Gap 7 mmol/L BUN 20 (9-20) mg/dL Creatinine 1.23 (0.66-1.25) mg/dL Est GFR (CKD-EPI)AfAm 70 (>60 ml/min/1.73 sqM) Est GFR (CKD-EPI)NonAf 60 (>60 ml/min/1.73 sqM) Glucose 177 H (74-99) mg/dL POC Glucose (mg/dL) (70-110) mg/dL POC Glu It Help Desk Technician ID Calcium 7.6 L (8.4-10.2) mg/dL Phosphorus 3.0 (2.5-4.5) mg/dL Magnesium 1.7 (1.6-2.3) mg/dL Total Bilirubin 0.3 (0.2-1.3) mg/dL AST 21 (17-59) U/L ALT 17 (4-49) U/L Alkaline Phosphatase 65 (38-126) U/L Troponin I 0.053 H* (0.000-0.034) ng/mL NT-Pro-B Natriuret Pep 451 pg/mL Total Protein 5.8 L (6.3-8.2) g/dL Albumin 3.5 (3.5-5.0) g/dL Urine Color Urine Appearance (Clear) Urine pH (5.0-8.0) Ur Specific [place] (1.001-1.035) Urine Protein (Negative) Urine Glucose (UA) (Negative) Urine Ketones (Negative) Urine Blood (Negative) Urine Nitrite (Negative) Urine Bilirubin (Negative) Urine Urobilinogen (<2.0) mg/dL Ur Leukocyte Esterase (Negative) Urine RBC (0-5) /hpf Urine WBC (0-5) /hpf Ur Squamous Epith Cells (0-4) /hpf Cellular Casts (0) /lpf Hyaline Casts (0-2) /lpf Urine Mucus (None) /hpf 08/15/22 08/15/22 Range/Units 22:22 23:06 WBC (3.8-10.6) k/uL RBC (4.30-5.90) m/uL Hgb (13.0-17.5) gm/dL Hct (39.0-53.0) % MCV (80.0-100.0) fL MCH (25.0-35.0) pg MCHC (31.0-37.0) g/dL RDW (11.5-15.5) % Plt Count (150-450) k/uL MPV Neutrophils % % Lymphocytes % % Monocytes % % Eosinophils % % Basophils % % Neutrophils # (1.3-7.7) k/uL Lymphocytes # (1.0-4.8) k/uL Monocytes # (0-1.0) k/uL Eosinophils # (0-0.7) k/uL Basophils # (0-0.2) k/uL PT (9.0-12.0) sec INR (<1.2) APTT (22.0-30.0) sec VBG pH 7.33 (7.31-7.41) VBG pCO2 37 (37-51) mmHg VBG HCO3 19 L (24-28) mmol/L Sodium (137-145) mmol/L Potassium (3.5-5.1) mmol/L Chloride (98-107) mmol/L Carbon Dioxide (22-30) mmol/L Anion Gap mmol/L BUN (9-20) mg/dL Creatinine (0.66-1.25) mg/dL Est GFR (CKD-EPI)AfAm (>60 ml/min/1.73 sqM) Est GFR (CKD-EPI)NonAf (>60 ml/min/1.73 sqM) Glucose (74-99) mg/dL POC Glucose (mg/dL) (70-110) mg/dL POC Glu It Help Desk Technician ID Calcium (8.4-10.2) mg/dL Phosphorus (2.5-4.5) mg/dL Magnesium (1.6-2.3) mg/dL Total Bilirubin (0.2-1.3) mg/dL AST (17-59) U/L ALT (4-49) U/L Alkaline Phosphatase (38-126) U/L Troponin I (0.000-0.034) ng/mL NT-Pro-B Natriuret Pep pg/mL Total Protein (6.3-8.2) g/dL Albumin (3.5-5.0) g/dL Urine Color Yellow Urine Appearance Cloudy (Clear) Urine pH 5.5 (5.0-8.0) Ur Specific [place] 1.025 (1.001-1.035) Urine Protein 3+ H (Negative) Urine Glucose (UA) 4+ H (Negative) Urine Ketones Trace H (Negative) Urine Blood Moderate H (Negative) Urine Nitrite Negative (Negative) Urine Bilirubin 1+ H (Negative) Urine Urobilinogen 4.0 (<2.0) mg/dL Ur Leukocyte Esterase Trace H (Negative) Urine RBC 97 H (0-5) /hpf Urine WBC 9 H (0-5) /hpf Ur Squamous Epith Cells 8 H (0-4) /hpf Cellular Casts 2 (0) /lpf Hyaline Casts 94 H (0-2) /lpf Urine Mucus Many H (None) /hpf - EKG Data -: EKG Interpreted by Me (Severe sinus bradycardia unchanged throughout ER stay, consider third-degre) EKG shows normal: sinus rhythm When compared to previous EKG there are: changes noted (Severe changes) - Radiology Data Radiology results: report reviewed (Chest x-rays negative for acute disease), image reviewed Critical Care Time Critical Care Time: Yes Total Critical Care Time: 65 Disposition Clinical Impression: Dyspnea, Chest pain, Pleuritic chest pain, Syncope, Bradycardia Disposition: ADMITTED IP TO THIS [facility] Condition: Critical Is patient prescribed a controlled substance at d/c from ED?: No Referrals: None,Stated [Primary Care Provider] - 1-2 days Time of Disposition: 23:30
--- NOTE | 2022-08-15 22:49 | XR ---
EXAMINATION TYPE: XR chest 1V portable DATE OF EXAM: 08/15/2022 COMPARISON: 08/25/2018 HISTORY: Atrial fibrillation TECHNIQUE: FINDINGS: Heart is enlarged. No heart failure no pleural effusion. There are chest leads. Bony thorax is intact. IMPRESSION: Cardiomegaly. No heart failure seen. No significant change compared to old exam.
[2022-08-15] MEDS ORDERED: NALOXONE 0.4 MG/ML 1 ML VIAL IV PRN (23:14)
[2022-08-15] MEDS ORDERED: LORazepam 2 MG/ML INJ IV PRN (23:14)
[2022-08-15] MEDS ORDERED: IPRATROPIUM-ALBUTEROL 3 ML NEB INHALATION PRN (23:14)
[2022-08-15 23:20] LABS: Appearance,Urine Cloudy (Clear); Bilirubin,Urine 1+ (Negative); Blood,Urine Moderate (Negative); Cellular Casts,Urine 2 /lpf (0); Color,Urine Yellow; Glucose,Urine (UA) 4+ (Negative); Hyaline Casts,Urine 94 /lpf (0-2); Ketones,Urine Trace (Negative); Leukocyte Esterase,Urine Trace (Negative); Mucus,Urine Many /hpf; Nitrite,Urine Negative (Negative); PH, Urine 5.5 (5.0-8.0); Protein,Urine 3+ (Negative); RBC,Urine 97 /hpf (0-5); Specific Gravity,Urine 1.025 (1.001-1.035); Squamous Epithelial Cell,Urine 8 /hpf (0-4); WBC,Urine 9 /hpf (0-5)
[2022-08-16 00:06] LABS: Glucose,Whole Blood 183 mg/dL (70-110)
[2022-08-16] MEDS: MORPHINE SULFATE 2 MG/ML SYRINGE IV PRN ×8 (00:56→23:13)
[2022-08-16] MEDS ORDERED: DOPamine DRIP 800 MG in DEXTROSE/WATER 1 250ML.BAG IV SCH (02:45)
[2022-08-16] MEDS ORDERED: ceFAZolin 3 GM in SODIUM CHLORIDE 0.9% 100 ML IVPB PRN (05:00)
--- NOTE | 2022-08-16 05:02 | P.HPIM ---
History of Present Illness H&P Date: 08/16/22 The patient is a 59-year-old male with a PMH of AAlysa holly on Coumadin status post ablation, type II DM, COPD, hypertension, hyperlipidemia, chronic lower back pain status post lumbar surgery who presents to the emergency room after a syncopal episode. The patient states that he was at his home standing in the kitchen cutting vegetables when he suddenly developed severe lightheadedness. He proceeded to go sit down but the feeling persisted until he eventually lost consciousness. His daughter witnessed episode contacted EMS. The patient was noted to be severely bradycardic upon EMS arrival. Upon presentation at the emergency room, his pulse was 30 with BP 127/49, pO2 100% on nonrebreather 12 L, and temp 98.3F. The patient denied experiencing chest discomfort or shortness of breath. At time of interview, he reported feeling essentially at his baseline and had no complaints. He denied any prior history of such episodes. Chest x-ray in the emergency room revealed cardiomegaly but was otherwise unremarkable. EKG revealed sinus bradycardia 27 bpm with third-degree AV block with PVCs as reviewed by me. Laboratory evaluation was remarkable for INR 2.3, troponin 0.053, and proBNP 451. The case was discussed with phone with cardiology on-call recommended to start the patient on dopamine infusion. He further stated that as long as the patient is asymptomatic, they will see him in the morning for possible pacemaker placement. Review of systems: Pertinent positives and negatives as discussed in HPI, a complete review of systems was performed and all other systems are negative. Physical examination: General: non toxic, no distress, appears at stated age, morbidly obese Derm: no unusual rashes/lesions, warm Head: atraumatic, normocephalic, symmetric Eyes: EOMI, no lid lag, anicteric sclera, pupils equal round reactive to light ENT: Nose and ears atraumatic Neck: No cervical lymphadenopathy, trachea midline, supple Mouth: no lip lesion, mucus membranes moist Cardiovascular: Bradycardic, S1S2 reg, no murmur, positive dorsalis pedis pulse bilateral, no edema Lungs: CTA bilateral, no rhonchi, no rales, no accessory muscle use Abdominal: soft, nontender to palpation, no guarding Ext: no gross muscle atrophy, no contractures, Neuro: CN II-XI grossly intact, no gross focal neuro deficits Psych: Alert, oriented, appropriate affect Assessment/plan Third-degree AV block with syncope -Status post atropine 0.5 mg 2 in the emergency room -Patient currently is symptomatic with pulse around 30 bpm in the ICU -Continue with cardiac monitoring -Cardiology consulted -Dopamine infusion -Trend troponin -Fall precautions Chronic conditions: A. fib, hypertension, hyperlipidemia, COPD, type II DM -Continue with home meds -Insulin sliding scale with blood glucose monitoring DVT prophylaxis -Coumadin The patient is admitted with an anticipated greater than 2 midnight stay for evaluation of syncope CODE STATUS: Full Code Discussed with: Patient Anticipated discharge date: 2-[address]: Home Past Medical History Past Medical History: Asthma, Diabetes Mellitus, Hyperlipidemia, Hypertension Additional Past Medical History / Comment(s): NEUROPATHY History of Any Multi-Drug Resistant Organisms: None Reported Past Surgical History: Back Surgery, Cardiac Ablation, Ear Surgery, Orthopedic Surgery, Tonsillectomy Additional Past Surgical History / Comment(s): knee surgery, Past Anesthesia/Blood Transfusion Reactions: No Reported Reaction Past Psychological History: Anxiety Additional Psychological History / Comment(s): Pt resides with his daughter, son-in-law and grandchildren. He is independent. He ambulates with a cane. He was in the [employer]. He is a NIDDM type II but does not have a glucometer. Smoking Status: Current every day smoker Past Alcohol Use History: None Reported Past Drug Use History: None Reported - Past Family History Mother Family Medical History: Cancer Additional Family Medical History / Comment(s): LUNG CANCER Father Family Medical History: Cancer Additional Family Medical History / Comment(s): LUNG CANCER Medications and Allergies Home Medications Medication Instructions Recorded Confirmed Type metFORMIN HCL [Glucophage] 500 mg PO BID 07/07/14 08/15/22 History Acetaminophen-Codeine 300-30mg 2 tab PO Q6H PRN 11/21/15 08/15/22 History [Tylenol w/codeine #3] Atorvastatin Calcium [Lipitor] 20 mg PO HS 06/19/17 08/15/22 History Albuterol Sulfate [Proair Hfa] 2 puff INHALATION RT-Q6H PRN 08/25/18 08/15/22 H istory Cyclobenzaprine [Flexeril] 10 mg PO TID 08/25/18 08/15/22 History Spironolactone 25 mg PO DAILY 08/25/18 08/15/22 History amLODIPine [Norvasc] 10 mg PO DAILY #30 tab 08/26/18 08/15/22 Rx Cholecalciferol [Vitamin D3 (25 50 mcg PO DAILY 08/15/22 08/15/22 History Mcg = 1000 Iu)] Metoprolol Tartrate [Lopressor] 12.5 mg PO DAILY 08/15/22 08/15/22 History Valsartan 320 mg PO DAILY 08/15/22 08/15/22 History Warfarin [Coumadin] 7.5 mg PO MOWEFR 08/15/22 08/15/22 History Warfarin [Coumadin] 10 mg PO SUTUTHSA 08/15/22 08/15/22 History Allergies Allergy/AdvReac Type Severity Reaction Status Date / Time NSAIDS (Non-Steroidal Allergy Unknown Unknown Verified 08/15/22 23:26 Anti-Inflamma Androgenic Anabolic Steroid Allergy Unknown Verified 08/15/22 23:26 aspirin Allergy Stomach Verified 08/15/22 23:26 Pain azithromycin Allergy Unknown Verified 08/15/22 23:26 [From Zithromax Z-Boaz] ibuprofen [From Motrin] Allergy Unknown Verified 08/15/22 23:26 niacin Allergy Unknown Verified 08/15/22 23:26 Physical Exam Vitals: Vital Signs Temp Pulse Pulse Resp BP BP Pulse Ox 08/16/22 04:00 98.0 F 28 L 16 130/46 95 08/16/22 03:00 29 L 25 H 103/65 94 L 08/16/22 02:00 30 L 24 73/63 96 08/16/22 01:00 30 L 24 118/68 99 08/16/22 00:14 97.7 F 31 L 18 118/60 99 08/16/22 00:01 97.8 F 31 L 20 99 08/15/22 23:50 30 L 24 96/84 99 08/15/22 23:45 30 L 24 109/63 99 08/15/22 23:40 32 L 24 109/63 100 08/15/22 23:30 30 L 24 56/21 99 08/15/22 23:20 30 L 24 120/56 100 08/15/22 23:05 30 L 35 H 117/83 98 08/15/22 22:50 30 L 24 131/49 98 08/15/22 22:40 28 L 24 153/56 100 08/15/22 22:26 30 L 08/15/22 22:03 98.3 F 30 L 20 127/49 100 Intake and Output 08/15/22 08/15/22 08/16/22 14:59 22:59 06:59 Intake Total 655.362 Output Total 220 Balance 435.362 Intake: IV 650 Sodium Chloride 0.9% 1, 650 000 ml @ 130 mls/hr IV . Q7H42M [facility] Rx#:[id number] Intake, IV Titration 5.362 Amount DOPamine DRIP 800 mg In 5.362 Dextrose/Water 1 250ml. bag @ 5 MCG/KG/MIN 12.375 mls/hr IV .[id number] [facility] Rx#:[id number] Output: Urine 220 Other: Weight 131.995 kg 131.995 kg Results CBC & Chem 7: 08/15/22 22:22 08/15/22 22:22 Labs: Abnormal Lab Results - Last 24 Hours (Table) 08/15/22 08/15/22 08/15/22 Range/Units 22:16 22:22 22:22 RBC 4.15 L (4.30-5.90) m/uL PT 22.3 H (9.0-12.0) sec INR 2.3 H (<1.2) VBG HCO3 (24-28) mmol/L Chloride (98-107) mmol/L Carbon Dioxide (22-30) mmol/L Glucose (74-99) mg/dL POC Glucose (mg/dL) 192 H (70-110) mg/dL Calcium (8.4-10.2) mg/dL Troponin I (0.000-0.034) ng/mL Total Protein (6.3-8.2) g/dL Urine Protein (Negative) Urine Glucose (UA) (Negative) Urine Ketones (Negative) Urine Blood (Negative) Urine Bilirubin (Negative) Ur Leukocyte Esterase (Negative) Urine RBC (0-5) /hpf Urine WBC (0-5) /hpf Ur Squamous Epith Cells (0-4) /hpf Hyaline Casts (0-2) /lpf Urine Mucus (None) /hpf 08/15/22 08/15/22 08/15/22 Range/Units 22:22 22:22 22:22 RBC (4.30-5.90) m/uL PT (9.0-12.0) sec INR (<1.2) VBG HCO3 19 L (24-28) mmol/L Chloride 111 H (98-107) mmol/L Carbon Dioxide 20 L (22-30) mmol/L Glucose 177 H (74-99) mg/dL POC Glucose (mg/dL) (70-110) mg/dL Calcium 7.6 L (8.4-10.2) mg/dL Troponin I 0.053 H* (0.000-0.034) ng/mL Total Protein 5.8 L (6.3-8.2) g/dL Urine Protein (Negative) Urine Glucose (UA) (Negative) Urine Ketones (Negative) Urine Blood (Negative) Urine Bilirubin (Negative) Ur Leukocyte Esterase (Negative) Urine RBC (0-5) /hpf Urine WBC (0-5) /hpf Ur Squamous Epith Cells (0-4) /hpf Hyaline Casts (0-2) /lpf Urine Mucus (None) /hpf 08/15/22 08/16/22 Range/Units 23:06 00:04 RBC (4.30-5.90) m/uL PT (9.0-12.0) sec INR (<1.2) VBG HCO3 (24-28) mmol/L Chloride (98-107) mmol/L Carbon Dioxide (22-30) mmol/L Glucose (74-99) mg/dL POC Glucose (mg/dL) 183 H (70-110) mg/dL Calcium (8.4-10.2) mg/dL Troponin I (0.000-0.034) ng/mL Total Protein (6.3-8.2) g/dL Urine Protein 3+ H (Negative) Urine Glucose (UA) 4+ H (Negative) Urine Ketones Trace H (Negative) Urine Blood Moderate H (Negative) Urine Bilirubin 1+ H (Negative) Ur Leukocyte Esterase Trace H (Negative) Urine RBC 97 H (0-5) /hpf Urine WBC 9 H (0-5) /hpf Ur Squamous Epith Cells 8 H (0-4) /hpf Hyaline Casts 94 H (0-2) /lpf Urine Mucus Many H (None) /hpf Thrombosis Risk Factor Assmnt - Choose All That Apply Any of the Below Risk Factors Present?: Yes Each Factor Represents 1 point: Medical pt on bed rest Other Risk Factors: Yes Each Risk Factor Represents 2 Points: Age 61-74 years Thrombosis Risk Factor Assessment Total Risk Factor Score: 3 Thrombosis Risk Factor Assessment Level: Moderate Risk
[2022-08-16 06:21] LABS: Basophils % (A) 0 %; Eosinophils # (A) 0.1 k/uL (0-0.7); Eosinophils % (A) 1 %; HCT 38.6 % (39.0-53.0); HGB 12.7 gm/dL (13.0-17.5); Lymphocytes # (A) 0.7 k/uL (1.0-4.8); Lymphocytes % (A) 5 %; MCH 31.4 pg (25.0-35.0); MCHC 32.9 g/dL (31.0-37.0); MCV 95.4 fL (80.0-100.0); Monocytes # (A) 0.1 k/uL (0-1.0); Monocytes % (A) 1 %; Neutrophils # (A) 11.1 k/uL (1.3-7.7); Neutrophils % (A) 93 %; Platelet Count 161 k/uL (150-450); RBC 4.05 m/uL (4.30-5.90); RDW 12.9 % (11.5-15.5)
[2022-08-16 06:34] LABS: Magnesium 1.6 mg/dL (1.6-2.3); Phosphorus 2.3 mg/dL (2.5-4.5); Potassium 5.2 mmol/L (3.5-5.1); Total Bilirubin 0.6 mg/dL (0.2-1.3); Total Protein 6.5 g/dL (6.3-8.2)
[2022-08-16] MEDS ORDERED: ceFAZolin 1 GM in SODIUM CHLORIDE 0.9% IRRIG BTL 250 ML IRRIGATION PRN (07:00)
--- NOTE | 2022-08-16 07:37 | P.CNPUL ---
History of Present Illness Consult date: 08/16/22 Chief complaint: Syncope History of present illness: This is a 59-year-old male patient with known history of chronic into fibrillation in addition to diabetes mellitus, hypertension and hyperlipidemia and COPD. The patient also has issues with chronic lower back pain for which the patient undergone previous lumbar spine surgery. The patient was at home when he was standing in his kitchen cutting vegetables and preparing for foods. He suddenly developed lightheadedness. He ultimately became unconscious. And his daughter witnessed the episode and contacted EMS. EMS arrived immediately to the scene as expected. The patient was found to be severely bradycardic and upon presentation to the emergency department, the patient's pulse was 30. His abdomen BP of 127/49. He was placed on 100% nonrebreather facemask and he was afebrile. His cardiac rhythm was not clear. I did not see any P waves. It is possible that it may be a third-degree AV block or a high grade junctional rhythm. His heart rate is currently 27. Cardiology declines to do any percutaneous pacing. No transvenous pacing was also done. Overnight, the patient becam oliguric and he dropped his urine output down to 5-10 mL an hour. He was started on dopamine and following that patient became hypotensive. The patient became diaphoretic and also flushed. At that point, the patient was taken off the dopamine. Currently is on IV fluids running at KVO. He is on oxygen at 2 L. His chest x-ray is consistent with wide vascular pedicle and there is a component of pulmonary vascular congestion also. He denies having any chest pain. No focal neurological deficits. Labs from today show an acute kidney injury with a creatinine of 1.7 with a BUN of 25 and a sodium level of 139 with a potassium level of 5.2. His serum bicarb is at 17. His bili was philippe e is at 12 with a hemoglobin of 12.7 and a platelet count of 161. His UA is abnormal with +3 protein, +4 glucose, WBCs are only at 9 Review of Systems Constitutional: Reports weakness Eyes: denies as per HPI, denies blurred vision, denies bulging eye, denies decreased vision, denies diplopia, denies discharge, denies dry eye, denies irritation, denies itching, denies pain, denies photophobia, denies loss of peripheral vision, denies loss of vision, denies tunnel vision/blind spots Ears: deny: decreased hearing, ear discharge, earache, tinnitus Ears, nose, mouth and throat: Reports as per HPI Breasts: absent: as per HPI, gynecomastia Cardiovascular: Reports decreased exercise tolerance, Reports dyspnea on exertion, Reports syncope Respiratory: Reports as per HPI Gastrointestinal: Reports as per HPI Genitourinary: Reports as per HPI Musculoskeletal: Reports as per HPI Musculoskeletal: absent: ankle pain, ankle stiffness, ankle swelling, as per HPI, elbow pain, elbow stiffness, elbow swelling, foot pain, foot stiffness, foot swelling, hand pain, hand stiffness, hand swelling, hip pain, hip stif fness, hip swelling, knee pain, knee stiffness, knee swelling, shoulder pain, shoulder stiffness, shoulder swelling, wrist pain, wrist stiffness, wrist swelling Integumentary: Reports as per HPI Neurological: Reports as per HPI Psychiatric: Reports as per HPI Endocrine: Reports as per HPI Hematologic/Lymphatic: Reports as per HPI Allergic/Immunologic: Reports as per HPI Past Medical History Past Medical History: Asthma, Diabetes Mellitus, Hyperlipidemia, Hypertension Additional Past Medical History / Comment(s): NEUROPATHY History of Any Multi-Drug Resistant Organisms: None Reported Past Surgical History: Back Surgery, Cardiac Ablation, Ear Surgery, Orthopedic Surgery, Tonsillectomy Additional Past Surgical History / Comment(s): knee surgery, Past Anesthesia/Blood Transfusion Reactions: No Reported Reaction Past Psychological History: Anxiety Additional Psychological History / Comment(s): Pt resides with his daughter, son -in-law and grandchildren. He is independent. He ambulates with a cane. He was in the [employer]. He is a NIDDM type II but does not have a glucometer. Smoking Status: Current every day smoker Past Alcohol Use History: None Reported Past Drug Use History: None Reported - Past Family History Mother Family Medical History: Cancer Additional Family Medical History / Comment(s): LUNG CANCER Father Family Medical History: Cancer Additional Family Medical History / Comment(s): LUNG CANCER Medications and Allergies Home Medications Medication Instructions Recorded Confirmed Type metFORMIN HCL [Glucophage] 500 mg PO BID 07/07/14 08/15/22 History Acetaminophen-Codeine 300-30mg 2 tab PO Q6H PRN 11/21/15 08/15/22 History [Tylenol w/codeine #3] Atorvastatin Calcium [Lipitor] 20 mg PO HS 06/19/17 08/15/22 History Albuterol Sulfate [Proair Hfa] 2 puff INHALATION RT-Q6H PRN 08/25/18 08/15/22 History Cyclobenzaprine [Flexeril] 10 mg PO TID 08/25/18 08/15/22 History Spironolactone 25 mg PO DAILY 08/25/18 08/15/22 History amLODIPine [Norvasc] 10 mg PO DAILY #30 tab 08/26/18 08/15/22 Rx Cholecalciferol [Vitamin D3 (25 50 mcg PO DAILY 08/15/22 08/15/22 History Mcg = 1000 Iu)] Metoprolol Tartrate [Lopressor] 12.5 mg PO DAILY 08/15/22 08/15/22 History Valsartan 320 mg PO DAILY 08/15/22 08/15/22 History Warfarin [Coumadin] 7.5 mg PO MOWEFR 08/15/22 08/15/22 History Warfarin [Coumadin] 10 mg PO SUTUTHSA 08/15/22 08/15/22 History Allergies Allergy/AdvReac Type Severity Reaction Status Date / Time NSAIDS (Non-Steroidal Allergy Unknown Unknown Verified 08/15/22 23:26 Anti-Inflamma Androgenic Anabolic Steroid Allergy Unknown Verified 08/15/22 23:26 aspirin Allergy Stomach Verified 08/15/22 23:26 Pain azithromycin Allergy Unknown Verified 08/15/22 23:26 [From Zithromax Z-Boaz] ibuprofen [From Motrin] Allergy Unknown Verified 08/15/22 23:26 niacin Allergy Unknown Verified 08/15/22 23:26 dopamine AdvReac Severe Dyspnea Verified 08/16/22 06:42 Physical Exam Vitals: Vital Signs Temp Pulse Pulse Resp BP BP Pulse Ox 08/16/22 06:00 31 L 23 133/55 93 L 08/16/22 05:00 30 L 21 125/43 94 L 08/16/22 04:00 98.0 F 28 L 16 130/46 95 08/16/22 03:00 29 L 25 H 103/65 94 L 08/16/22 02:00 30 L 24 73/63 96 08/16/22 01:00 30 L 24 118/68 99 08/16/22 00:14 97.7 F 31 L 18 118/60 99 08/16/22 00:01 97.8 F 31 L 20 99 08/15/22 23:50 30 L 24 96/84 99 08/15/22 23:45 30 L 24 109/63 99 08/15/22 23:40 32 L 24 109/63 100 08/15/22 23:30 30 L 24 56/21 99 08/15/22 23:20 30 L 24 120/56 100 08/15/22 23:05 30 L 35 H 117/83 98 08/15/22 22:50 30 L 24 131/49 98 08/15/22 22:40 28 L 24 153/56 100 08/15/22 22:26 30 L 08/15/22 22:03 98.3 F 30 L 20 127/49 100 Intake and Output 08/15/22 08/16/22 08/16/22 22:59 06:59 14:59 Intake Total 915.362 Output Total 225 Balance 690.362 Intake: IV 910 Sodium Chloride 0.9% 1, 910 000 ml @ 130 mls/hr IV . Q7H42M [facility] Rx#:[id number] Intake, IV Titration 5.362 Amount DOPamine DRIP 800 mg In 5.362 Dextrose/Water 1 250ml. bag @ 5 MCG/KG/MIN 12.375 mls/hr IV .[id number] [facility] Rx#:[id number] Output: Urine 225 Other: Voiding Method Indwelling Catheter Weight 131.995 kg 131.995 kg General: non toxic, no distress, appears at stated age, morbidly obese Derm: no unusual rashes/lesions, warm Head: atraumatic, normocephalic, symmetric Eyes: EOMI, no lid lag, anicteric sclera, pupils equal round reactive to light ENT: Nose and ears atraumatic Neck: No cervical lymphadenopathy, trachea midline, supple Mouth: no lip lesion, mucus membranes moist Cardiovascular: Bradycardic, S1S2 reg, no murmur, positive dorsalis pedis pulse bilateral, no edema Lungs: CTA bilateral, no rhonchi, no rales, no accessory muscle use Abdominal: soft, nontender to palpation, no guarding Ext: no gross muscle atrophy, no contractures, Neuro: CN II-XI grossly intact, no gross focal neuro deficits Psych: Alert, oriented, appropriate affect Results - Laboratory Findings CBC and BMP: 08/16/22 05:55 08/16/22 05:55 PT/INR, D-dimer PT 22.3 sec (9.0-12.0) H 08/15/22 22:22 INR 2.3 (<1.2) H 08/15/22 22:22 Abnormal lab findings: Abnormal Labs 08/15/22 08/15/22 08/15/22 22:16 22:22 22:22 WBC RBC 4.15 L Hgb Hct Neutrophils # Lymphocytes # PT 22.3 H INR 2.3 H VBG HCO3 Potassium Chloride Carbon Dioxide BUN Creatinine Glucose POC Glucose (mg/dL) 192 H Plasma Lactic Acid Howie Calcium Phosphorus Troponin I Total Protein Urine Protein Urine Glucose (UA) Urine Ketones Urine Blood Urine Bilirubin Ur Leukocyte Esterase Urine RBC Urine WBC Ur Squamous Epith Cells Hyaline Casts Urine Mucus 08/15/22 08/15/22 08/15/22 22:22 22:22 22:22 WBC RBC Hgb Hct Neutrophils # Lymphocytes # PT INR VBG HCO3 19 L Potassium Chloride 111 H Carbon Dioxide 20 L BUN Creatinine Glucose 177 H POC Glucose (mg/dL) Plasma Lactic Acid Howie Calcium 7.6 L Phosphorus Troponin I 0.053 H* Total Protein 5.8 L Urine Protein Urine Glucose (UA) Urine Ketones Urine Blood Urine Bilirubin Ur Leukocyte Esterase Urine RBC Urine WBC Ur Squamous Epith Cells Hyaline Casts Urine Mucus 08/15/22 08/16/22 08/16/22 23:06 00:04 05:55 WBC RBC Hgb Hct Neutrophils # Lymphocytes # PT INR VBG HCO3 Potassium Chloride Carbon Dioxide BUN Creatinine Glucose POC Glucose (mg/dL) 183 H Plasma Lactic Acid Howie 6.3 H* Calcium Phosphorus Troponin I Total Protein Urine Protein 3+ H Urine Glucose (UA) 4+ H Urine Ketones Trace H Urine Blood Moderate H Urine Bilirubin 1+ H Ur Leukocyte Esterase Trace H Urine RBC 97 H Urine WBC 9 H Ur Squamous Epith Cells 8 H Hyaline Casts 94 H Urine Mucus Many H 08/16/22 08/16/22 05:55 05:55 WBC 12.0 H RBC 4.05 L Hgb 12.7 L Hct 38.6 L Neutrophils # 11.1 H Lymphocytes # 0.7 L PT INR VBG HCO3 Potassium 5.2 H Chloride 109 H Carbon Dioxide 17 L BUN 25 H Creatinine 1.72 H Glucose 204 H POC Glucose (mg/dL) Plasma Lactic Acid Howie Calcium Phosphorus 2.3 L Troponin I Total Protein Urine Protein Urine Glucose (UA) Urine Ketones Urine Blood Urine Bilirubin Ur Leukocyte Esterase Urine RBC Urine WBC Ur Squamous Epith Cells Hyaline Casts Urine Mucus Assessment and Plan Plan: Severe bradycardia arrhythmia consistent most likely with a third-degree AV bl ock. Patient was symptomatic, lightheaded and he had a episode of syncope. Currently is still severely bradycardic with a heart rate of 27 bpm Acute kidney injury, consider possibility of low cardiac output state, cardiorenal factors Diminished urine output secondary to above History of chronic into fibrillation, maintain on a combination of metoprolol and warfarin Hypertension Hyperlipidemia Diabetes mellitus Obesity Bronchial asthma Left lower extremity neurologic injury related to a back injury Chronic back pain was previous lumbar spine surgery Plan Immediate cardiology consultation with Dr. Saucedo as the patient will likely need a pacemaker insertion Hold beta blockers Gentle IV fluids at 50 mL an hour of normal saline Coagulation profile to be checked today, INR was therapeutic yesterday 2.3 Non-responsive to dopamine and this was discontinued Insulin sliding scale coverage Hold anticoagulants for now Keep the Syed catheter in place We'll continue to follow
[2022-08-16] MEDS ORDERED: SODIUM CHLORIDE 0.9% 1,000 ML IV SCH (07:45)
[2022-08-16] MEDS ORDERED: Magnesium Replacement Protocol 1 EACH MISC MISCELLANE PRN (08:07)
[2022-08-16 08:08] LABS: Glucose,Whole Blood 179 mg/dL (70-110)
[2022-08-16] MEDS: INSULIN ASPART (NovoLOG) 100 UNIT/ML VIAL SQ SCH ×4 (08:21→20:30)
[2022-08-16] MEDS: MAGNESIUM SULFATE-D5W PMX 1 GM in DEXTROSE/WATER 1 100ML.BAG IVPB SCH ×2 (08:21→09:34)
[2022-08-16 08:23] LABS: INR 2.1 (<1.2); Partial Thromboplastin Time 28.4 sec (22.0-30.0); Prothrombin Time 20.8 sec (9.0-12.0)
--- NOTE | 2022-08-16 09:22 | P.CRDCN ---
History of Present Illness Consult date: 08/16/22 Reason for Consult (text): Heart block History of present illness: The patient is a 67-year-old male who presented to the hospital with acute onset of dizziness and syncope. The patient states he began feeling unwell at home last night when he attempted to ambulate from his kitchen to his living room. He had a complete syncopal episode while resting in his recliner chair. He believes that he did fall and hit his head, which was witnessed by his daughter. Upon arrival to the emergency room he was found to be in third-degree heart block. The patient was interviewed and examined lying comfortably in the ICU bed. He states he had been feeling well up until yesterday. He denies any recent fever, chills, or infections. He denies any fatigue over the last several months. No additional episodes of dizziness. DIAGNOSTICS: EKG shows third-degree heart block Chest x-ray shows cardiomegaly without acute cardiopulmonary process Labs: W BC 12.0, hemoglobin 12.7, hematocrit 30.6, platelet 161, sodium 139, potassium 5.2, BUN 25, creatinine 1.72, lactic acid 6.2, phosphorus 2.3, magnesium 1.6, positive for urinary tract infection REVIEW OF SYSTEMS: No fever or chills. No cough or expectoration. No diaphoresis. Patient denies headache, dizziness, blurred vision, double vision. Patient denies any stomach discomfort. No nausea, vomiting. No hematochezia. No hematemesis. Denies any black stools or blood in his stools. Denies dysuria or hematuria. No muscle weakness or numbness. No chest pain. No dyspnea. No orthopnea. PHYSICAL EXAMINATION: This is a 67-year-old male in no apparent distress at the time of my examination. HEENT: Head is atraumatic, normocephalic. Pupils are equal, round. Sclerae anicteric. Conjunctivae are clear. Mucous membranes of the mouth are moist. Neck is supple. There is no jugular venous distention. No carotid bruit is heard. CHEST EXAMINATION: Lungs are diminished to auscultation. No chest wall tenderness is noted on palpation or with deep breathing. No wheezes or rhonchi. HEART EXAMINATION: Heart regular rate and rhythm. S1, S2 heard. Notably bradycardic. No murmurs, gallops or rub. ABDOMEN: Soft, nontender. Bowel sounds are heard. No organomegaly noted. EXTREMITIES: 2+ peripheral pulses with no evidence of peripheral edema and no calf tenderness noted. NEUROLOGIC EXAMINATION: Patient is awake, alert and oriented x3. FINAL ASSESSMENT AND PLAN: Third-degree heart block History of hypertension History diabetes History of paroxysmal atrial fibrillation History of dyslipidemia PLAN: Stat echocardiogram to assess LV function Proceed with pacemaker implantation later today with Dr. Saucedo I am dictating on behalf of Dr Derek Saucedo's history/physical and assessment/plan. Past Medical History Past Medical History: Asthma, Diabetes Mellitus, Hyperlipidemia, Hypertension Additional Past Medical History / Comment(s): NEUROPATHY History of Any Multi-Drug Resistant Organisms: None Reported Past Surgical History: Back Surgery, Cardiac Ablation, Ear Surgery, Orthopedic Surgery, Tonsillectomy Additional Past Surgical History / Comment(s): knee surgery, Past Anesthesia/Blood Transfusion Reactions: No Reported Reaction Past Psychological History: Anxiety Additional Psychological History / Comment(s): Pt resides with his daughter, son-in-law and grandchildren. He is independent. He ambulates with a cane. He was in the [employer]. He is a NIDDM type II but does not have a glucometer. Smoking Status: Current every day smoker Past Alcohol Use History: None Reported Past Drug Use History: None Reported - Past Family History Mother Family Medical History: Cancer Additional Family Medical History / Comment(s): LUNG CANCER Father Family Medical History: Cancer Additional Family Medical History / Comment(s): LUNG CANCER Medications and Allergies Home Medications Medication Instructions Recorded Confirmed Type metFORMIN HCL [Glucophage] 500 mg PO BID 07/07/14 08/15/22 History Acetaminophen-Codeine 300-30mg 2 tab PO Q6H PRN 11/21/15 08/15/22 History [Tylenol w/codeine #3] Atorvastatin Calcium [Lipitor] 20 mg PO HS 06/19/17 08/15/22 History Albuterol Sulfate [Proair Hfa] 2 puff INHALATION RT-Q6H PRN 08/25/18 08/15/22 History Cyclobenzaprine [Flexeril] 10 mg PO TID 08/25/18 08/15/22 History Spironolactone 25 mg PO DAILY 08/25/18 08/15/22 History amLODIPine [Norvasc] 10 mg PO DAILY #30 tab 08/26/18 08/15/22 Rx Cholecalciferol [Vitamin D3 (25 50 mcg PO DAILY 08/15/22 08/15/22 History Mcg = 1000 Iu)] Metoprolol Tartrate [Lopressor] 12.5 mg PO DAILY 08/15/22 08/15/22 History Valsartan 320 mg PO DAILY 08/15/22 08/15/22 History Warfarin [Coumadin] 7.5 mg PO MOWEFR 08/15/22 08/15/22 History Warfarin [Coumadin] 10 mg PO SUTUTHSA 08/15/22 08/15/22 History Allergies Allergy/AdvReac Type Severity Reaction Status Date / Time NSAIDS (Non-Steroidal Allergy Unknown Unknown Verified 08/15/22 23:26 Anti-Inflamma Androgenic Anabolic Steroid Allergy Unknown Verified 08/15/22 23:26 aspirin Allergy Stomach Verified 08/15/22 23:26 Pain azithromycin Allergy Unknown Verified 08/15/22 23:26 [From Zithromax Z-Boaz] ibuprofen [From Motrin] Allergy Unknown Verified 08/15/22 23:26 niacin Allergy Unknown Verified 08/15/22 23:26 dopamine AdvReac Severe Dyspnea Verified 08/16/22 06:42 Physical Exam Vitals: Vital Signs Temp Pulse Pulse Resp BP BP Pulse Ox 08/16/22 08:00 98.0 F 26 L 16 111/80 93 L 08/16/22 07:00 31 L 22 124/50 91 L 08/16/22 06:00 31 L 23 133/55 93 L 08/16/22 05:00 30 L 21 125/43 94 L 08/16/22 04:00 98.0 F 28 L 16 130/46 95 08/16/22 03:00 29 L 25 H 103/65 94 L 08/16/22 02:00 30 L 24 73/63 96 08/16/22 01:00 30 L 24 118/68 99 08/16/22 00:14 97.7 F 31 L 18 118/60 99 08/16/22 00:01 97.8 F 31 L 20 99 08/15/22 23:50 30 L 24 96/84 99 08/15/22 23:45 30 L 24 109/63 99 08/15/22 23:40 32 L 24 109/63 100 08/15/22 23:30 30 L 24 56/21 99 08/15/22 23:20 30 L 24 120/56 100 08/15/22 23:05 30 L 35 H 117/83 98 08/15/22 22:50 30 L 24 131/49 98 08/15/22 22:40 28 L 24 153/56 100 08/15/22 22:26 30 L 08/15/22 22:03 98.3 F 30 L 20 127/49 100 Intake and Output 08/15/22 08/16/22 08/16/22 22:59 06:59 14:59 Intake Total 915.362 190 Output Total 225 25 Balance 690.362 165 Intake: IV 910 190 Invasive Line 1 20 Invasive Line 2 10 Magnesium Sulfate-D5w Pmx 100 1 gm In Dextrose/Water 1 100ml.bag @ 100 mls/hr IVPB Q1H [facility] Rx#: [id number] Sodium Chloride 0.9% 1, 910 10 000 ml @ 130 mls/hr IV . Q7H42M [facility] Rx#:[id number] Sodium Chloride 0.9% 1, 50 000 ml @ 50 mls/hr IV . Q20H [facility] Rx#:[id number] Intake, IV Titration 5.362 Amount DOPamine DRIP 800 mg In 5.362 Dextrose/Water 1 250ml. bag @ 5 MCG/KG/MIN 12.375 mls/hr IV .[id number] [facility] Rx#:[id number] Output: Urine 225 25 Other: Voiding Method Indwelling Catheter Indwelling Catheter Weight 131.995 kg 139 kg Results 08/16/22 05:55 08/16/22 05:55 Cardiac Enzymes 08/15/22 08/15/22 08/16/22 Range/Units 22:22 22:22 05:55 AST 21 24 (17-59) U/L Troponin I 0.053 H* (0.000-0.034) ng/mL Coagulation 08/15/22 08/16/22 Range/Units 22:22 07:44 PT 22.3 H 20.8 H (9.0-12.0) sec APTT 22.2 28.4 (22.0-30.0) sec CBC 08/15/22 08/16/22 Range/Units 22:22 05:55 WBC 10.3 12.0 H (3.8-10.6) k/uL RBC 4.15 L 4.05 L (4.30-5.90) m/uL Hgb 13.1 12.7 L (13.0-17.5) gm/dL Hct 39.2 38.6 L (39.0-53.0) % Plt Count 183 161 (150-450) k/uL Comprehensive Metabolic Panel 08/15/22 08/16/22 Range/Units 22:22 05:55 Sodium 138 139 (137-145) mmol/L Potassium 5.0 5.2 H (3.5-5.1) mmol/L Chloride 111 H 109 H (98-107) mmol/L Carbon Dioxide 20 L 17 L (22-30) mmol/L BUN 20 25 H (9-20) mg/dL Creatinine 1.23 1.72 H (0.66-1.25) mg/dL Glucose 177 H 204 H (74-99) mg/dL Calcium 7.6 L 9.0 (8.4-10.2) mg/dL AST 21 24 (17-59) U/L ALT 17 32 (4-49) U/L Alkaline Phosphatase 65 67 (38-126) U/L Total Protein 5.8 L 6.5 (6.3-8.2) g/dL Albumin 3.5 4.0 (3.5-5.0) g/dL Current Medications Generic Name Dose Route Start Last Admin Trade Name Freq PRN Reason Stop Dose Admin Albuterol/Ipratropium 3 ml 08/15/22 23:14 Ipratropium-Albuterol 3 Ml Neb INHALATION RT-Q4H PRN Shortness Of Breath Or Wheezing Sodium Chloride 1,000 mls @ 50 mls/hr 08/16/22 07:45 08/16/22 08:00 Saline 0.9% IV 50 mls/hr .Q20H [place] Administration Magnesium Sulfate/Dextrose 1 100 mls @ 100 mls/hr 08/16/22 08:15 08/16/22 08:21 gm/ IV Solution IVPB 08/16/22 10:14 100 mls/hr Q1H [place] Administration Insulin Aspart 0 unit 08/16/22 07:30 08/16/22 08:21 Insulin Aspart (Novolog) 100 Unit/Ml Vial SQ 3 unit ACHS [place] Administration Protocol Lorazepam 1 mg 08/15/22 23:14 Lorazepam 2 Mg/Ml Inj IV Q6HR PRN Anxiety Miscellaneous Information 1 each 08/16/22 05:01 Warfarin Per Pharmacy MISCELLANE DIRECTED PRN Per Protocol Protocol Miscellaneous Information 1 each 08/16/22 08:07 Magnesium Replacement Protocol 1 Each Misc MISCELLANE DAILY PRN Per Protocol Protocol Morphine Sulfate 2 mg 08/15/22 23:14 08/16/22 08:22 Morphine Sulfate 2 Mg/Ml Syringe IV 2 mg Q2HR PRN Administration Moderate Pain (Scale 4 to 6) Naloxone HCl 0.2 mg 08/15/22 23:14 Naloxone 0.4 Mg/Ml 1 Ml Vial IV Q2M PRN Opioid Reversal Warfarin Sodium 10 mg 08/16/22 18:00 Warfarin 10 Mg Tab PO [id number] [facility] Warfarin Sodium 7.5 mg 08/17/22 18:00 Warfarin 7.5 Mg Tab PO [email or web address] [facility] Intake and Output 08/15/22 08/16/22 08/16/22 22:59 06:59 14:59 Intake Total 915.362 190 Output Total 225 25 Balance 690.362 165 Intake: IV 910 190 Invasive Line 1 20 Invasive Line 2 10 Magnesium Sulfate-D5w Pmx 100 1 gm In Dextrose/Water 1 100ml.bag @ 100 mls/hr IVPB Q1H [facility] Rx#: [id number] Sodium Chloride 0.9% 1, 910 10 000 ml @ 130 mls/hr IV . Q7H42M [facility] Rx#:[id number] Sodium Chloride 0.9% 1, 50 000 ml @ 50 mls/hr IV . Q20H [facility] Rx#:[id number] Intake, IV Titration 5.362 Amount DOPamine DRIP 800 mg In 5.362 Dextrose/Water 1 250ml. bag @ 5 MCG/KG/MIN 12.375 mls/hr IV .[id number] [facility] Rx#:[id number] Output: Urine 225 25 Other: Voiding Method Indwelling Catheter Indwelling Catheter Weight 131.995 kg 139 kg 08/16/22 05:55 08/16/22 05:55
[2022-08-16 11:23] LABS: Glucose,Whole Blood 192 mg/dL (70-110)
[2022-08-16] MEDS ORDERED: fentaNYL (PF) 50 MCG/ML 2 ML AMP ONE (12:10)
[2022-08-16] MEDS ORDERED: MIDAZOLAM 2 MG/2 ML VIAL ONE (12:10)
[2022-08-16] MEDS ORDERED: KETAMINE 10 MG/ML 20 ML VIAL ONE (12:10)
[2022-08-16] MEDS ORDERED: HYDROmorphone (PF) 1 MG/ML ONE (12:10)
[2022-08-16] MEDS ORDERED: IOPAMIDOL-370 50ML BTL INJ ONE (12:35)
[2022-08-16] MEDS ORDERED: SODIUM CHLORIDE 0.9% 500 ML 500 ML IV ONE (12:40)
[2022-08-16] MEDS ORDERED: IV FLUID CONTINUATION 900 ML IV ONE (12:40)
--- NOTE | 2022-08-16 13:01 | CA ---
Transthoracic Echo Report Name: Willie Gomez Age: 67 Gender: M : 1955 Exam Date: 08/16/2022 08:07 Exam Location: [place] [facility] Ht (in): 71 Wt (lb): 291 Ordering Physician: Derek Saucedo MD ([id number]) Attending/Referring Phys: [employer] Maker Miranda Zarco RDCS Procedure CPT: Indications: heart block Cardiac Hx: Technical Quality: Technically difficult study Contrast 1: Lumason Total Dose (mL): 3 Contrast 2: Total Dose (mL): MEASUREMENTS (Male / Female) Normal Values 2D ECHO IVS Diastolic Thickness 2.0 cm 0.6 - 1.0 / 0.6 - 0.9 cm LA Volume 101.4 cm??? 18 - 58 / 22 - 52 cm??? DOPPLER AV Peak Velocity 208.9 cm/s AV Peak Gradient 17.5 mmHg AV Mean Velocity 175.9 cm/s AV Mean Gradient 14.4 mmHg AV Velocity Time Integral 57.6 cm LVOT Peak Velocity 173.9 cm/s LVOT Peak Gradient 12.1 mmHg MV Area PHT 2.8 cm??? Mitral E Point Velocity 107.0 cm/s Mitral A Point Velocity 93.7 cm/s Mitral E to A Ratio 1.1 MV Deceleration Time 270.8 ms TR Peak Velocity 219.9 cm/s TR Peak Gradient 19.3 mmHg Right Ventricular Systolic Press 24.3 mmHg FINDINGS Left Ventricle Severely increased left ventricular wall thickness. No obvious regional wall motion abnormalities. Left ventricular ejection fraction is estimated at 65 %. Right Ventricle Right ventricle not well visualized. Right Atrium Right atrium not well visualized. Left Atrium Severely increased left atrial volume. Mildly increased left atrial area. Mitral Valve Structurally normal mitral valve. Mitral valve thickened. Mitral annular calcification. [id number] mitral regurgitation. Aortic Valve Mild aortic stenosis with a peak gradient of 18 mmHg and a mean gradient of 14 mmHg. Tricuspid Valve Mild tricuspid regurgitation. Pulmonic Valve Pulmonic valve not well visualized. Pericardium No pericardial effusion. Aorta Normal size aortic root and proximal ascending aorta. CONCLUSIONS Severely increased left ventricular wall thickness Left ventricular ejection fraction 65% Bradycardia noted throughout exam Mild to moderate mitral regurgitation Mild aortic stenosis with a mean gradient 14 mmHg Previewed by: Dr. Rod Roy DO (Electronically Signed) Final Date: 16 August 2022 13:00
[2022-08-16] MEDS ORDERED: LIDOCAINE 1% INJ 10MG/ML (30 ML VIAL-PF) SQ ONE (13:05)
[2022-08-16] MEDS ORDERED: VANCOMYCIN 1,250 MG in SODIUM CHLORIDE 0.9% 250 ML IVPB STA (13:10)
--- NOTE | 2022-08-16 14:28 | P.EPPROC ---
- EP Procedure Note Electrophysiology Procedure Note: Diagnosis Symptomatic severe bradycardia secondary to third-degree heart block Procedure Dual-chamber pacemaker implantation Extended duration procedure on account of complete heart block management Details Patient was brought to the EP lab in a fasting state. Written informed consent was obtained prior to the procedure. Conscious sedation provided by anesthesia IV antibiotics administered including vancomycin. Local anesthesia administered. A 4 cm incision made in the pectoral area. Subfascial pocket made. Venous accesses obtained Venous sheaths placed. Leads placed in the right heart Patient was in complete heart block with severe bradycardia Initially the right atrial lead was placed in the RV apex without screwing it out, as a temporary pacemaker The RV lead was positioned in the right ventricle Multiple sites were attempted. Ammann stylet was used to attempt RV septal pacing but the lead would repeatedly slip out into the right atrium However finally with a curved stylet the RV septal position was obtained with excellent thresholds The atrial lead was then positioned in the right atrium Atrial lead position the right atrial appendage. Medtronic model #5076, 52 cm in length P waves 1.8 mV, pacing impedance 456 ohms and pacing threshold 0.75 V at 0.4 ms RV lead position in the RV apex. 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
[2022-08-16] MEDS ORDERED: ACETAMINOPHEN IV (For NPO) 1,000 MG in EMPTY BAG 1 BAG IVPB ONE (14:40)
--- NOTE | 2022-08-16 14:58 | XR ---
EXAMINATION TYPE: XR chest 1V portable DATE OF EXAM: 08/16/2022 Comparison: 08/15/2022 Clinical History: 67-year-old male Lead placement check Findings: Left anterior chest wall pacemaker generator with right atrial and right ventricular leads. Heart mod erately enlarged. Diffuse interstitial opacities and mild patchy bibasilar opacities are similar to s lightly worsened. No appreciable pneumothorax. Impression: 1. Left anterior chest wall pacemaker generator with right atrial and right ventricular leads. No marco antonio reciable pneumothorax. 2. Moderate cardiomegaly with diffuse interstitial changes; correlate for CHF with pulmonary vascular congestion.
--- NOTE | 2022-08-16 15:27 | P.PN ---
Progress Note - Text Progress Note Date: 08/16/22 Hospitalist Interval Note Patient seen and examined at bedside. Vital signs reviewed General: non toxic, no distress, appears at stated age, morbidly obese Derm: no unusual rashes/lesions, warm Head: atraumatic, normocephalic, symmetric Eyes: EOMI, no lid lag, anicteric sclera, pupils equal round reactive to light ENT: Nose and ears atraumatic Neck: No cervical lymphadenopathy, trachea midline, supple Mouth: no lip lesion, mucus membranes moist Cardiovascular: Bradycardic, S1S2 reg, no murmur, positive dorsalis pedis pulse bilateral, no edema Lungs: CTA bilateral, no rhonchi, no rales, no accessory muscle use Abdominal: soft, nontender to palpation, no guarding Ext: no gross muscle atrophy, no contractures, Neuro: CN II-XI grossly intact, no gross focal neuro deficits Psych: Alert, oriented, appropriate affect Assessment/Plan: Third-degree AV block Syncope and collapse Out of the hospital cardiac arrest Hyperkalemia Acute kidney injury Lactic acidosis Leukocytosis Atrial fibrillation Hypertension Dyslipidemia COPD Type 2 diabetes -Permanent pacemaker per cardiology -Echocardiogram showed LVEF 65%, severely increased left ventricular wall thickness, mild to moderate MR -Continue home medications This is an update note for patient. There is no charge associated with this note.
[2022-08-16 16:51] LABS: Glucose,Whole Blood 155 mg/dL (70-110)
[2022-08-16] MEDS: amLODIPine 10 MG TAB PO SCH (17:09)
[2022-08-16] MEDS ORDERED: WARFARIN 10 MG TAB PO SCH (18:00)
[2022-08-16 20:21] LABS: Glucose,Whole Blood 164 mg/dL (70-110)
[2022-08-16] MEDS ORDERED: ACETAMINOPHEN TAB 325 MG TAB PO PRN (21:00)
[2022-08-17] MEDS: MORPHINE SULFATE 2 MG/ML SYRINGE IV PRN ×2 (01:16→05:42)
[2022-08-17 06:27] LABS: Glucose,Whole Blood 143 mg/dL (70-110)
[2022-08-17] MEDS: INSULIN ASPART (NovoLOG) 100 UNIT/ML VIAL SQ SCH ×2 (06:47→12:00)
[2022-08-17 07:03] LABS: Basophils % (A) 0 %; Eosinophils % (A) 0 %; HCT 36.4 % (39.0-53.0); HGB 12.1 gm/dL (13.0-17.5); Lymphocytes % (A) 4 %; MCH 31.6 pg (25.0-35.0); MCHC 33.2 g/dL (31.0-37.0); MCV 94.9 fL (80.0-100.0); Mean Platelet Volume 10.2; Monocytes # (A) 0.7 k/uL (0-1.0); Monocytes % (A) 3 %; Neutrophils # (A) 22.2 k/uL (1.3-7.7); Neutrophils % (A) 92 %; Platelet Count 148 k/uL (150-450); RBC 3.83 m/uL (4.30-5.90); RDW 13.1 % (11.5-15.5); WBC 24.2 k/uL (3.8-10.6)
[2022-08-17 07:11] LABS: Calcium 8.7 mg/dL (8.4-10.2); Magnesium 2.1 mg/dL (1.6-2.3); Potassium 5.7 mmol/L (3.5-5.1)
[2022-08-17 07:28] LABS: INR 2.1 (<1.2)
[2022-08-17] MEDS ORDERED: SODIUM ZIRCONIUM CYCLOSILICATE 10 GM PACKET PO ONE (07:49)
--- NOTE | 2022-08-17 08:29 | P.PN ---
Subjective Progress Note Date: 08/17/22 This is a 59-year-old male patient with known history of chronic into fibrillation in addition to diabetes mellitus, hypertension and hyperlipidemia and COPD. The patient also has issues with chronic lower back pain for which the patient undergone previous lumbar spine surgery. The patient was at home when he was standing in his kitchen cutting vegetables and preparing for foods. He suddenly developed lightheadedness. He ultimately became unconscious. And his daughter witnessed the episode and contacted EMS. EMS arrived immediately to the scene as expected. The patient was found to be severely bradycardic and upon presentation to the emergency department, the patient's pulse was 30. His abdomen BP of 127/49. He was placed on 100% nonrebreather facemask and he was afebrile. His cardiac rhythm was not clear. I did not see any P waves. It is possible that it may be a third-degree AV block or a high grade junctional rhythm. His heart rate is currently 27. Cardiology declines to do any percutaneous pacing. No transvenous pacing was also done. Overnight, the patient becam oliguric and he dropped his urine output down to 5-10 mL an hour. He was started on dopamine and following that patient became hypotensive. The patient became diaphoretic and also flushed. At that point, the patient was taken off the dopamine. Currently is on IV fluids running at KVO. He is on oxygen at 2 L. His chest x-ray is consistent with wide vascular pedicle and there is a component of pulmonary vascular congestion also. He denies having any chest pain. No focal neurological deficits. Labs from today show an acute kidney injury with a creatinine of 1.7 with a BUN of 25 and a sodium level of 139 with a potassium level of 5.2. His serum bicarb is at 17. His bili was gone is at 12 with a hemoglobin of 12.7 and a platelet count of 161. His UA is abnormal with +3 protein, +4 glucose, WBCs are only at 9 On 08/17/2022, the patient reports marked improvement in his symptoms. He is feeling much better. His got more energy. Is sitting up on a chair. He underwent a pacemaker insertion, DDD and currently his cardiac rhythmat the rate of 70. No hypotension. No dizziness. No lightheadedness. No syncope. He is currently on IV fluids at 50 mL's an hour. His blood work from today is showing a WBC count of 24 with a hemoglobin of 12.1 and a platelet count of 148. His INR is at 2.1 with a PT of 21. Sodium level is at 135 with a potassium level of 5.7. His creatinine is improving. Peak at 1.7 and currently dropped down to 143 with a BUN of 32. His lactic acid level was as high as 6.2. Meanwhile, his pulse pacemaker insertion chest x-ray shows occasions. There is no evidence of any pneumothorax. There is some right basilar atelectasis. No fever. He is wearing a sling and the surgical wound site is dry clean and intact. Objective - Vital Signs Vital signs: Vital Signs Temp 97.9 F 08/17/22 04:00 Pulse 64 08/17/22 07:00 Resp 16 08/17/22 07:00 BP 124/57 08/17/22 07:00 Pulse Ox 90 L 08/17/22 07:00 FiO2 Intake & Output 08/16/22 08/17/22 08/17/22 18:59 06:59 18:59 Intake Total 1485 630 Output Total 195 940 Balance 1290 -310 Weight 138.5 kg Intake: IV 1245 630 Invasive Line 1 40 30 Invasive Line 2 20 Magnesium Sulfate-D5w Pmx 200 1 gm In Dextrose/Water 1 100ml.bag @ 100 mls/hr IVPB Q1H [facility] Rx#: [id number] Sodium Chloride 0.9% 1, 10 000 ml @ 130 mls/hr IV . Q7H42M [facility] Rx#:[id number] Sodium Chloride 0.9% 1, 400 600 000 ml @ 50 mls/hr IV . Q20H [facility] Rx#:[id number] Oral 240 Output: Urine 195 940 Other: Voiding Method Indwelling Catheter Indwelling Catheter - Exam General: non toxic, no distress, appears at stated age, morbidly obese Derm: no unusual rashes/lesions, warm Head: atraumatic, normocephalic, symmetric Eyes: EOMI, no lid lag, anicteric sclera, pupils equal round reactive to light ENT: Nose and ears atraumatic Neck: No cervical lymphadenopathy, trachea midline, supple Mouth: no lip lesion, mucus membranes moist Cardiovascular: S1S2 reg, no murmur, positive dorsalis pedis pulse bilateral, no edema, the cardiac rhythmat this point in time and the patient has a pacemaker pocket over the left anterior chest area. Is also wearing a sling in the left upper extremity. Lungs: CTA bilateral, no rhonchi, no rales, no accessory muscle use Abdominal: soft, nontender to palpation, no guarding Ext: no gross muscle atrophy, no contractures, Neuro: CN II-XI grossly intact, no gross focal neuro deficits Psych: Alert, oriented, appropriate affect - Labs CBC & Chem 7: 08/17/22 06:35 08/17/22 06:35 Labs: Abnormal Lab Results - Last 24 Hours (Table) 08/16/22 08/16/22 08/16/22 Range/Units 07:42 07:44 11:21 WBC (3.8-10.6) k/uL RBC (4.30-5.90) m/uL Hgb (13.0-17.5) gm/dL Hct (39.0-53.0) % Plt Count (150-450) k/uL Neutrophils # (1.3-7.7) k/uL PT 20.8 H (9.0-12.0) sec INR 2.1 H (<1.2) Sodium (137-145) mmol/L Potassium (3.5-5.1) mmol/L BUN (9-20) mg/dL Creatinine (0.66-1.25) mg/dL Glucose (74-99) mg/dL POC Glucose (mg/dL) 192 H (70-110) mg/dL Plasma Lactic Acid Howie 6.2 H* (0.7-2.0) mmol/L 08/16/22 08/16/22 08/17/22 Range/Units 16:49 20:19 06:26 WBC (3.8-10.6) k/uL RBC (4.30-5.90) m/uL Hgb (13.0-17.5) gm/dL Hct (39.0-53.0) % Plt Count (150-450) k/uL Neutrophils # (1.3-7.7) k/uL PT (9.0-12.0) sec INR (<1.2) Sodium (137-145) mmol/L Potassium (3.5-5.1) mmol/L BUN (9-20) mg/dL Creatinine (0.66-1.25) mg/dL Glucose (74-99) mg/dL POC Glucose (mg/dL) 155 H 164 H 143 H (70-110) mg/dL Plasma Lactic Acid Howie (0.7-2.0) mmol/L 08/17/22 08/17/22 08/17/22 Range/Units 06:35 06:35 06:35 WBC 24.2 H (3.8-10.6) k/uL RBC 3.83 L (4.30-5.90) m/uL Hgb 12.1 L (13.0-17.5) gm/dL Hct 36.4 L (39.0-53.0) % Plt Count 148 L (150-450) k/uL Neutrophils # 22.2 H (1.3-7.7) k/uL PT 21.0 H (9.0-12.0) sec INR 2.1 H (<1.2) Sodium 135 L (137-145) mmol/L Potassium 5.7 H (3.5-5.1) mmol/L BUN 32 H (9-20) mg/dL Creatinine 1.43 H (0.66-1.25) mg/dL Glucose 131 H (74-99) mg/dL POC Glucose (mg/dL) (70-110) mg/dL Plasma Lactic Acid Howie (0.7-2.0) mmol/L Assessment and Plan Plan: Severe bradycardia arrhythmia consistent most likely with a third-degree AV block. The patient is post pacemaker insertion in his cardiac rhythm clinically much improved an postopday#1. Acute kidney injury, consider possibility of low cardiac output state, cardiorenal factors, creatinine is improving Diminished urine output secondary to above, improving History of chronic into fibrillation, maintain on a combination of metoprolol an d warfarin, INR therapeutic Leukocytosis under investigation Hypertension Hyperlipidemia Diabetes mellitus Obesity Bronchial asthma Left lower extremity neurologic injury related to a back injury Chronic back pain was previous lumbar spine surgery Plan Gentle IV fluids at 50 mL an hour of normal saline Coagulation profile to be checked today, INR was therapeutic yesterday 2.1 Check pro calcitonin level Monitor the white cell count Monitor the creatinine and the potassium level Monitor PT/INR We'll get a dose lokelma DC Syed catheter We'll continue to follow
[2022-08-17] MEDS ORDERED: VALSARTAN 160 MG TAB PO SCH (09:00)
[2022-08-17] MEDS ORDERED: SPIRONOLACTONE 25 MG TAB PO SCH (09:00)
[2022-08-17] MEDS ORDERED: Acetaminophen-Codeine 300-30mg TAB PO PRN (09:21)
[2022-08-17] MEDS: amLODIPine 10 MG TAB PO SCH (09:26)
--- NOTE | 2022-08-17 09:30 | CDI ---
Documentation Clarification Form Date: 08/17/2022 9:13:50 AM From: Aliza Boswell CCS, CCDS Admit Date: 08/15/2022 11:15:00 PM Patient Name: Willie Gomez Visit Number: [id number] Discharge Date: ATTENTION: The Clinical Documentation Specialists (CDI) and [facility] Coding Staff appreciate your assistance in clarifying documentation. Please respond to the clarification below the line at the bottom and electronically sign. The CDI & [facility] Coding staff will review the response and follow-up if needed. Please note: Queries are made part of the Legal Health Record. If you have any questions, please contact the author of this message via ITS. Dr. Quang Franco: Patient is admitted with a 3rd degree AV block after becoming unresponsive with cardiac arrest at home. The 08/16 H/P states the patient was given Dopamine infusion, became hypotensive and was taken off Dopamine, also became oliguric with GIOVANY. Additional clarification regarding the patient's condition is requested. Patient history/risk factors per the 08/16 H/P: Asthma, DM, Hyperlipidemia, Hypertension, Neuropathy, Paroxysmal A fib on Coumadin, Anxiety, Smoker. Clinical Indicators: Presented to the ED on 08/15 via EMS after a syncopal event at home requiring CPR. Admit with Dyspnea, Chest Pain, Pleuritic Chest Pain, Syncope & Bradycardia. 08/15 VS: T 98.3, P 30, R 20, BP 127/49, PO 100 RA - 12% nrb, BMI: 43.8 08/16 VS: T 97.7, P 30, R 24, BP 118/68, 73/63; PO 99 4Lnc, 99 2Lnc 08/15 LAB: PT 22.3, INR 2.3; Chloride 111, CO2 20, Calcium 7.6, Troponin 0.053 08/16 LAB: PT 20.8, INR 2.1; K 5.2, Chloride 109, CO2 17, BUN 25, Creatinine 1.72, Glucose 204, Lactic Acid 6.2, Phosphorus 2.3 08/15 CXR: Cardiomegaly, no heart failure. 08/16 CXR: Left anterior chest wall pacemaker generator w/RA & RV leads, Moderate cardiomegaly with diffuse interstitial changes; correlate for CHF with pulmonary vascular congestion. 08/15 EKG: R 27 sinus bradycardia w/occasional PVCs, LBBB, Prolonged QT interval. Treatment 08/15: Blood glucose monitoring, Telemetry, O2 12% nrb, IV Calcium Chloride 1,000 mg x1, IV Dextrose 50 ml x1, IV Insulin 10 units x1, IV Na Bicarb 50 ml x2, IV Na Chloride 1,000 mls @ 999 mls/hr q1H, IV Na chloride 1,000 mls @ 130 mls/hr q7H, INH Ventolin 20 mg x1, IV Atropine 0.5 mg x2, IV Solumedrol 125 mg x1, IV Ativan 1 mg x1, INH Duoneb q4H/prn, IV Ativan 1 mg q6H/prn, IV Morhpine 2 mg q2H/prn. 08/16: IV Dopamine 250 mls @ 12.375 mls/hr q20H. Please clarify the following and please specify if present on admission: [ ] Hypovolemic Shock [ x ] Cardiogenic Shock [ ] Other, please specify [ ] Unable to determine (Template Last Revised: October 2020) MTDD
--- NOTE | 2022-08-17 10:00 | P.PN ---
Subjective Progress Note Date: 08/17/22 The patient is a 67-year-old male who is currently admitted to the hospital after syncopal spell. He was found to be in complete heart block. The patient underwent dual-chamber pacemaker on 08/16/[address] Saucedo. He tolerated the procedure well and there were no postoperative complications. The patient was interviewed and examined resting comfortably in the recliner chair. He is feeling much better today per his report. He denies any dizziness or lightheadedness when standing up to the recliner chair. No chest pain or chest pressure. No difficulty breathing. GENERAL: Well-appearing, well-nourished and in no acute distress. NECK: Supple without JVD or thyromegaly. LUNGS: Breath sounds diminished to auscultation bilaterally. Respiration equal and unlabored. No wheezes, rales or rhonchi. HEART: Regular rate and rhythm without murmurs, rubs or gallops. S1 and S2 heard. Pacemaker dressing clean, dry, and intact. EXTREMITIES: Normal range of motion, no edema. No clubbing or cyanosis. Peripheral pulses intact and strong. VITALS: Blood pressure 115/64, respiratory rate 16, pulse 72 TELEMETRY: Paced rhythm LABS: WBC 24.2, hemoglobin 12.1, hematocrit 36.4, platelet 148, sodium 135, potassium 5.7, BUN 32, creatinine 1.43, magnesium 2.1 IMPRESSION: Third-degree heart block Status post dual-chamber pacemaker implantation History of hypertension History diabetes History of paroxysmal atrial fibrillation, history of dyslipidemia PLAN: Continue current medication regimen Patient may be discharged from the cardiac standpoint Outpatient follow-up device clinic in one week I am dictating on behalf of Dr Derek Saucedo's history/physical and assessment/plan. Objective - Vital Signs Vital signs: Vital Signs Temp 97.9 F 08/17/22 04:00 Pulse 65 08/17/22 09:00 Resp 24 08/17/22 09:00 BP 151/66 08/17/22 09:00 Pulse Ox 90 L 08/17/22 07:00 FiO2 Intake & Output 08/16/22 08/17/22 08/17/22 18:59 06:59 18:59 Intake Total 1485 630 110 Output Total 195 940 450 Balance 1290 -310 -340 Weight 138.5 kg Intake: IV 1245 630 110 Invasive Line 1 40 30 10 Invasive Line 2 20 Magnesium Sulfate-D5w Pmx 200 1 gm In Dextrose/Water 1 100ml.bag @ 100 mls/hr IVPB Q1H [facility] Rx#: [id number] Sodium Chloride 0.9% 1, 10 000 ml @ 130 mls/hr IV . Q7H42M [facility] Rx#:[id number] Sodium Chloride 0.9% 1, 400 600 100 000 ml @ 50 mls/hr IV . Q20H [facility] Rx#:[id number] Oral 240 Output: Urine 195 940 450 Other: Voiding Method Indwelling Catheter Indwelling Catheter Indwelling Catheter # Voids 1 - Labs CBC & Chem 7: 08/17/22 06:35 08/17/22 06:35 Labs: Abnormal Lab Results - Last 24 Hours (Table) 08/16/22 08/16/22 08/16/22 Range/Units 11:21 16:49 20:19 WBC (3.8-10.6) k/uL RBC (4.30-5.90) m/uL Hgb (13.0-17.5) gm/dL Hct (39.0-53.0) % Plt Count (150-450) k/uL Neutrophils # (1.3-7.7) k/uL PT (9.0-12.0) sec INR (<1.2) Sodium (137-145) mmol/L Potassium (3.5-5.1) mmol/L BUN (9-20) mg/dL Creatinine (0.66-1.25) mg/dL Glucose (74-99) mg/dL POC Glucose (mg/dL) 192 H 155 H 164 H (70-110) mg/dL 08/17/22 08/17/22 08/17/22 Range/Units 06:26 06:35 06:35 WBC 24.2 H (3.8-10.6) k/uL RBC 3.83 L (4.30-5.90) m/uL Hgb 12.1 L (13.0-17.5) gm/dL Hct 36.4 L (39.0-53.0) % Plt Count 148 L (150-450) k/uL Neutrophils # 22.2 H (1.3-7.7) k/uL PT (9.0-12.0) sec INR (<1.2) Sodium 135 L (137-145) mmol/L Potassium 5.7 H (3.5-5.1) mmol/L BUN 32 H (9-20) mg/dL Creatinine 1.43 H (0.66-1.25) mg/dL Glucose 131 H (74-99) mg/dL POC Glucose (mg/dL) 143 H (70-110) mg/dL 08/17/22 Range/Units 06:35 WBC (3.8-10.6) k/uL RBC (4.30-5.90) m/uL Hgb (13.0-17.5) gm/dL Hct (39.0-53.0) % Plt Count (150-450) k/uL Neutrophils # (1.3-7.7) k/uL PT 21.0 H (9.0-12.0) sec INR 2.1 H (<1.2) Sodium (137-145) mmol/L Potassium (3.5-5.1) mmol/L BUN (9-20) mg/dL Creatinine (0.66-1.25) mg/dL Glucose (74-99) mg/dL POC Glucose (mg/dL) (70-110) mg/dL
[2022-08-17] MEDS ORDERED: SENNOSIDES-DOCUSATE SODIUM 1 EACH TAB PO STA (10:34)
[2022-08-17] MEDS: Acetaminophen-Codeine 300-30mg TAB PO PRN ×2 (11:12→15:15)
[2022-08-17 11:17] VITALS: PULSE 70
[2022-08-17 11:52] LABS: Glucose,Whole Blood 139 mg/dL (70-110)
[2022-08-17 12:14] LABS: Appearance,Urine Clear (Clear); Bilirubin,Urine Negative (Negative); Blood,Urine Large (Negative); Color,Urine Yellow; Glucose,Urine (UA) Negative (Negative); Ketones,Urine Negative (Negative); Leukocyte Esterase,Urine Trace (Negative); Nitrite,Urine Negative (Negative); PH, Urine 5.5 (5.0-8.0); Protein,Urine Trace (Negative); RBC,Urine 111 /hpf (0-5); Squamous Epithelial Cell,Urine <1 /hpf (0-4); Urobilinogen,Urine <2.0 mg/dL (<2.0); WBC,Urine 6 /hpf (0-5)
[2022-08-17] MEDS ORDERED: HYDROmorphone 1 MG/ML 1 ML SYRINGE IVP STA (13:20)
[2022-08-17] MEDS: CYCLOBENZAPRINE 10 MG TAB PO SCH ×2 (13:35→15:11)
[2022-08-17 13:42] VITALS: BP 140/73; RESP 16; TEMP 97.2
[2022-08-17] MEDS ORDERED: CYCLOBENZAPRINE 10 MG TAB PO SCH (16:00)
--- NOTE | 2022-08-17 17:15 | P.DS ---
Providers Date of admission: 08/15/22 23:15 Expected date of discharge: 08/17/22 Attending physician: Jama Alejandro MD Consults: 08/15/22 23:14 Consult Physician Routine Consulting Provider: Padmini Arias Consult Reason/Comments: icu Do you want consulting provider notified?: Yes Consult Physician Routine Consulting Provider: Rod Roy Consult Reason/Comments: lory Do you want consulting provider notified?: Yes Primary care physician: Stated None Hospital Course: Discharge Diagnosis: Syncope and collapse Third-degree AV block Reported [id number] cardiac arrest status post CPR Lactic acidosis Multiple troponin elevation Hyperkalemia Hypomagnesemia Leukocytosis History of atrial fibrillation on Coumadin status post ablation Type 2 diabetes COPD Hypertension Dyslipidemia Hospital Course: 59-year-old male with a PMH of A. fib on Coumadin status post ablation, type II DM, COPD, hypertension, hyperlipidemia, chronic lower back pain status post lumbar surgery who presents to the emergency room after a syncopal episode. The patient states that he was at his home standing in the kitchen cutting vegetables when he suddenly developed severe lightheadedness. He proceeded to go sit down but the feeling persisted until he eventually lost consciousness. His daughter witnessed episode contacted EMS. Reportedly, the daughter did CPR. The patient was noted to be severely bradycardic upon EMS arrival. Upon presentation at the emergency room, his pulse was 30 with BP 127/49, pO2 100% on nonrebreather 12 L, and temp 98.3F. The patient denied experiencing chest discomfort or shortness of breath. At time of interview in the ED, he reported feeling essentially at his baseline and had no complaints. He denied any prior history of such episodes. Chest x-ray in the emergency room revealed cardiomegaly but was otherwise unremarkable. EKG revealed sinus bradycardia 27 bpm with third-degree AV block with PVCs. Laboratory evaluation was remarkable for INR 2.3, troponin 0.053, and proBNP 451. Patient was evaluated by electrophysiology, placed a dual-chamber pacemaker. Leukocytosis likely reactive, and also steroid-induced received in the ED. Renal function improving at discharge. Potassium improving. At the time of discharge. Metformin held due to recent lactic acidosis and renal impairment. Patient not overtly hyperg lycemic. Spironolactone also held due to hyperkalemia, which is improving at discharge.. Beta reyna held, patient now status post pacemaker. Patient continue his Albino inhibitor. He will have a BMP in 3 days, follow-up with his primary care doctor to further adjust medications, address electrolyte derangements if persistent. Patient discharged with a prescription of glucometer, check his blood sugars at least 2-4 times a day. Patient to also follow-up with cardiology in 1 week. Patient seen and examined at bedside. Vital signs reviewed and stable. General: nontoxic, no distress, appears at stated age, morbidly obese Derm: warm, dry, pacemaker site has a dressing, clean dry and intact Head: atraumatic, normocephalic, symmetric Eyes: EOMI, no lid lag, anicteric sclera Mouth: no lip lesion, mucus membranes moist Cardiovascular: S1S2 reg, no murmur Lungs: CTA bilateral, no rhonchi, no rales , no accessory muscle use Abdominal: soft, nontender to palpation, no guarding, no appreciable organomegaly Ext: no gross muscle atrophy, no edema, no contractures Neuro: CN II-XI grossly intact, no focal neuro deficits Psych: Alert, oriented, appropriate affect A total of 51 minutes of time were spent preparing this complex discharge summary. Patient was discharged on 08/17/22 at 15:16. Patient Condition at Discharge: Stable Plan - Discharge Summary New Discharge Prescriptions: New Warfarin [Coumadin] 10 mg PO SuTuThSa@1800 tab Warfarin [Coumadin] 7.5 mg PO MoWeFr@1800 tab Continue Acetaminophen-Codeine 300-30mg [Tylenol w/codeine #3] 2 tab PO Q6H PRN PRN Reason: Pain Atorvastatin Calcium [Lipitor] 20 mg PO HS Albuterol Sulfate [Proair Hfa] 2 puff INHALATION RT-Q6H PRN PRN Reason: Shortness Of Breath Cyclobenzaprine [Flexeril] 10 mg PO TID amLODIPine [Norvasc] 10 mg PO DAILY #30 tab Cholecalciferol [Vitamin D3 (25 Mcg = 1000 Iu)] 50 mcg PO DAILY Nitroglycerin 0.4 mg SL Q5M PRN PRN Reason: Chest Pain Valsartan 320 mg PO DAILY Discontinued metFORMIN HCL [Glucophage] 500 mg PO BID Spironolactone 25 mg PO DAILY Warfarin [Coumadin] 7.5 mg PO DAILY Metoprolol Tartrate [Lopressor] 12.5 mg PO DAILY Discharge Medication List Acetaminophen-Codeine 300-30mg [Tylenol w/codeine #3] 2 tab PO Q6H PRN 11/21/15 [History] Atorvastatin Calcium [Lipitor] 20 mg PO HS 06/19/17 [History] Albuterol Sulfate [Proair Hfa] 2 puff INHALATION RT-Q6H PRN 08/25/18 [History] Cyclobenzaprine [Flexeril] 10 mg PO TID 08/25/18 [History] amLODIPine [Norvasc] 10 mg PO DAILY #30 tab 08/26/18 [Rx] Cholecalciferol [Vitamin D3 (25 Mcg = 1000 Iu)] 50 mcg PO DAILY 08/15/22 [History] Valsartan 320 mg PO DAILY 08/15/22 [History] Nitroglycerin 0.4 mg SL Q5M PRN 08/16/22 [History] Warfarin [Coumadin] 7.5 mg PO MoWeFr@1800 tab 08/17/22 [Rx] Warfarin [Coumadin] 10 mg PO SuTuThSa@1800 tab 08/17/22 [Rx] Follow up Appointment(s)/Referral(s): Derek Saucedo MD [STAFF PHYSICIAN] - 08/27/22 10:00 am (Sunday 08/27 Device clinic 1000am, Will see Dr. Linn [employer] following apt with device clinic. ) [facility],Clinic [REFERRING] - 1-2 Days Ambulatory/Diagnostic Orders: Basic Metabolic Panel [LAB.AMB] Time Frame: 3 Days, Location: None Selected Patient Instructions/Handouts: Heart Healthy Diet (ED), Meal Planning with Diabetes Exchanges (DC), Heart Block (GEN), Mediterranean Diet (DC), Pacemaker (DC) Activity/Diet/Wound Care/Special Instructions: Please see your PCP as soon as possible. He will need a repeat electrolyte check in 3 days. Please see your psych np within 1 week. Discharge Disposition: HOME SELF-CARE
[2022-08-17] MEDS ORDERED: WARFARIN 7.5 MG TAB PO SCH (18:00)
== END 2022-08-17 17:10 | disposition home or self-care (01) | DRG 242 ==
LOC: EC 22:02 → 2SICU 23:15
PROVIDERS: ADMIT Internal Medicine; ATTEND Internal Medicine
PROC: 3E033XZ Introduction of Vasopressor into Peripheral Vein, Percutaneous Approach (ICD-10-PCS; 2022-08-16)
PROC: 02H63JZ Insertion of Pacemaker Lead into Right Atrium, Percutaneous Approach (ICD-10-PCS; principal; 2022-08-16 12:25)
PROC: 02HK3JZ Insertion of Pacemaker Lead into Right Ventricle, Percutaneous Approach (ICD-10-PCS; principal; 2022-08-16 12:25)
PROC: 0JH606Z Insertion of Pacemaker, Dual Chamber into Chest Subcutaneous Tissue and Fascia, Open Approach (ICD-10-PCS; principal; 2022-08-16 12:25)
DX: I44.2 Atrioventricular block, complete (principal); I46.9 Cardiac arrest, cause unspecified; N17.9 Acute kidney failure, unspecified; J98.11 Atelectasis; E87.20 Acidosis, unspecified; Z68.41 Body mass index [BMI] 40.0-44.9, adult; D72.829 Elevated white blood cell count, unspecified; T38.0X5A Adverse effect of glucocorticoids and synthetic analogues, initial encounter; J44.9 Chronic obstructive pulmonary disease, unspecified; I11.9 Hypertensive heart disease without heart failure; E78.5 Hyperlipidemia, unspecified; E11.40 Type 2 diabetes mellitus with diabetic neuropathy, unspecified; I95.9 Hypotension, unspecified; E83.42 Hypomagnesemia; I48.0 Paroxysmal atrial fibrillation; E66.01 Morbid (severe) obesity due to excess calories; R77.8 Other specified abnormalities of plasma proteins; E87.5 Hyperkalemia; F17.200 Nicotine dependence, unspecified, uncomplicated; F41.9 Anxiety disorder, unspecified; W18.30XA Fall on same level, unspecified, initial encounter; Y93.G3 Activity, cooking and baking; Y92.010 Kitchen of single-family (private) house as the place of occurrence of the external cause; G89.29 Other chronic pain; M54.50 Low back pain, unspecified; Z79.899 Other long term (current) drug therapy; Z79.84 Long term (current) use of oral hypoglycemic drugs; Z79.01 Long term (current) use of anticoagulants; Z98.890 Other specified postprocedural states; Z88.6 Allergy status to analgesic agent; Z88.3 Allergy status to other anti-infective agents; Z88.8 Allergy status to other drugs, medicaments and biological substances
CPT/HCPCS: 33208; 36415; 71045; 80048; 80053; 81001; 82803; 83605; 83735; 83880; 84100; 84132; 84145; 84484; 85025; 85610; 85730; 93005; 93306; 94640; 96361; 96374; 96375; 99291

== ENCOUNTER 2023-09-12 18:30 | Inpatient (IN) | payer OTHER, MEDICARE ==
[2023-09-12 19:10] LABS: Basophils # (A) 0.1 k/uL (0-0.2); Basophils % (A) 1 %; Eosinophils # (A) 0.1 k/uL (0-0.7); Eosinophils % (A) 1 %; HCT 42.7 % (39.0-53.0); HGB 14.1 gm/dL (13.0-17.5); Lymphocytes # (A) 1.6 k/uL (1.0-4.8); Lymphocytes % (A) 20 %; MCH 30.5 pg (25.0-35.0); MCHC 33.1 g/dL (31.0-37.0); Mean Platelet Volume 9.8; Monocytes # (A) 0.4 k/uL (0-1.0); Monocytes % (A) 4 %; Neutrophils # (A) 5.9 k/uL (1.3-7.7); Neutrophils % (A) 72 %; Platelet Count 182 k/uL (150-450); RBC 4.64 m/uL (4.30-5.90); RDW 13.2 % (11.5-15.5); WBC 8.2 k/uL (3.8-10.6)
[2023-09-12 19:19] LABS: INR 2.9 (<1.2); Prothrombin Time 28.9 sec (10.0-12.5)
[2023-09-12 19:20] LABS: Partial Thromboplastin Time 31.3 sec (22.0-30.0)
[2023-09-12 19:34] LABS: ALT 23 U/L (4-49); AST 25 U/L (17-59); African American GFR (CKD) >90 (>60 ml/min/1.73 sqM); Albumin 4.2 g/dL (3.5-5.0); Alkaline Phosphatase 80 U/L (38-126); Anion Gap 6 mmol/L; Blood Urea Nitrogen 21 mg/dL (9-20); Calcium 9.2 mg/dL (8.4-10.2); Carbon Dioxide 27 mmol/L (22-30); Chloride 109 mmol/L (98-107); Glucose 136 mg/dL (74-99); Magnesium 1.7 mg/dL (1.6-2.3); Non-African American GFR(CKD) 89 (>60 ml/min/1.73 sqM); Potassium 4.6 mmol/L (3.5-5.1); Sodium 142 mmol/L (137-145); Total Bilirubin 0.5 mg/dL (0.2-1.3); Total Protein 7.1 g/dL (6.3-8.2)
--- NOTE | 2023-09-12 19:42 | XR ---
EXAMINATION TYPE: XR chest 2V DATE OF EXAM: 09/12/2023 7:30 PM CLINICAL INDICATION:Male, 68 years old with history of dysrhythmia; COMPARISON: Chest radiographs from 08/16/2022 TECHNIQUE: XR chest 2V Frontal and lateral views of the chest. FINDINGS: Lungs/Pleura: Low lung volumes. Bibasilar atelectasis. No evidence for pneumothorax, pleural effusio n or focal consolidation. Pulmonary vascularity: Unremarkable. Heart/mediastinum: Cardiomediastinal silhouette is enlarged and stable. Two lead cardiac conduction d evice overlying the left hemithorax with lead tips projecting over the right ventricle and right atri um. Musculoskeletal: No acute osseous pathology. Other findings: None IMPRESSION: Low lung volumes with a generalized hazy appearance which could represent atelectasis versus pulmonar y edema correlate with serum BNP.
--- NOTE | 2023-09-12 20:36 | ED ---
Back Pain HPI - General Chief Complaint: Arrhythmia/Palpitations Stated Complaint: pace maker problems, threw back out Time Seen by Provider: 09/12/23 20:13 Source: patient, family, RN notes reviewed, old records reviewed Limitations: no limitations - History of Present Illness Initial Comments: This is a 68-year-old male to the ER for evaluation. Patient presents today for evaluation of palpitations and back pain. MD Complaint: back pain, back injury, other (Palpitations) -: hour(s) Similar Symptoms Previously: Yes Radiation: buttocks, left leg, right leg Severity: moderate Severity scale (1-10): 6 Quality: stabbing, crushing Consistency: constant Improves With: none Worsens With: none Associated Symptoms: denies other symptoms Treatments Prior to Arrival: other (0) - Related Data Home Medications Medication Instructions Recorded Confirmed Acetaminophen-Codeine 300-30mg 2 tab PO Q6H PRN 11/21/15 09/12/23 [Tylenol w/codeine #3] Atorvastatin Calcium [Lipitor] 20 mg PO HS 06/19/17 09/12/23 Albuterol Sulfate [Proair Hfa] 2 puff INHALATION RT-Q6H PRN 08/25/18 09/12/23 Cyclobenzaprine [Flexeril] 10 mg PO TID 08/25/18 09/12/23 Cholecalciferol [Vitamin D3 (25 50 mcg PO DAILY 08/15/22 09/12/23 Mcg = 1000 Iu)] Valsartan 320 mg PO DAILY 08/15/22 09/12/23 Nitroglycerin 0.4 mg SL Q5M PRN 08/16/22 09/12/23 Metoprolol Succinate [Metoprolol 25 mg PO DAILY 09/12/23 09/12/23 Succinate ER] Warfarin [Coumadin] 10 mg PO HS 09/12/23 09/12/23 Previous Rx's Medication Instructions Recorded amLODIPine [Norvasc] 10 mg PO DAILY #30 tab 08/26/18 Allergies Allergy/AdvReac Type Severity Reaction Status Date / Time NSAIDS (Non-Steroidal Allergy Unknown Unknown Verified 09/12/23 22:13 Anti-Inflamma Androgenic Anabolic Steroid Allergy Unknown Verified 09/12/23 22:13 aspirin Allergy Stomach Verified 09/12/23 22:13 Pain azithromycin Allergy Unknown Verified 09/12/23 22:13 [From Zithromax Z-Boaz] ibuprofen [From Motrin] Allergy Unknown Verified 09/12/23 22:13 niacin Allergy Unknown Verified 09/12/23 22:13 dopamine AdvReac Severe Dyspnea Verified 09/12/23 22:13 Review of Systems ROS Statement: Those systems with pertinent positive or pertinent negative responses have been documented in the HPI. ROS Other: All systems not noted in ROS Statement are negative. Past Medical History Past Medical History: Asthma, Diabetes Mellitus, Hyperlipidemia, Hypertension Additional Past Medical History / Comment(s): NEUROPATHY History of Any Multi-Drug Resistant Organisms: None Reported Past Surgical History: Back Surgery, Cardiac Ablation, Ear Surgery, Orthopedic Surgery, Pacemaker, Tonsillectomy Additional Past Surgical History / Comment(s): knee surgery, Past Anesthesia/Blood Transfusion Reactions: No Reported Reaction Past Psychological History: Anxiety Smoking Status: Current every day smoker Past Alcohol Use History: None Reported Past Drug Use History: None Reported - Past Family History Mother Family Medical History: Cancer Additional Family Medical History / Comment(s): LUNG CANCER Father Family Medical History: Cancer Additional Family Medical History / Comment(s): LUNG CANCER General Exam Limitations: no limitations General appearance: alert, in no apparent distress Head exam: Present: atraumatic, normocephalic, normal inspection Eye exam: Present: normal appearance, PERRL, EOMI. Absent: scleral icterus, conjunctival injection, periorbital swelling ENT exam: Present: normal exam, mucous membranes moist Neck exam: Present: normal inspection. Absent: tenderness, meningismus, lymphadenopathy Respiratory exam: Present: normal lung sounds bilaterally. Absent: respiratory distress, wheezes, rales, rhonchi, stridor Cardiovascular Exam: Present: regular rate, normal rhythm, normal heart sounds. Absent: systolic murmur, diastolic murmur, rubs, gallop, clicks GI/Abdominal exam: Present: soft, normal bowel sounds. Absent: distended, tenderness, guarding, rebound, rigid Extremities exam: Present: normal inspection, full ROM, normal capillary refill. Absent: tenderness, pedal edema, joint swelling, calf tenderness Back exam: Present: normal inspection Neurological exam: Present: alert, oriented X3, CN II-XII intact Psychiatric exam: Present: normal affect, normal mood Skin exam: Present: warm, dry, intact, normal color. Absent: rash Course Vital Signs 09/12/23 09/12/23 09/13/23 18:40 20:30 00:00 Temperature 98.2 F Pulse Rate 72 67 60 Pulse Rate [ Right] Respiratory 20 181 H 13 Rate Blood Pressure 155/89 135/78 143/79 Blood Pressure [Right Arm] O2 Sat by Pulse 98 97 97 Oximetry 09/13/23 09/13/23 09/13/23 05:30 07:28 11:36 Temperature 97.6 F Pulse Rate 63 61 62 Pulse Rate [ Right] Respiratory 16 18 18 Rate Blood Pressure 130/80 146/82 149/88 Blood Pressure [Right Arm] O2 Sat by Pulse 97 95 98 Oximetry 09/14/23 09/14/23 09/14/23 00:34 03:11 03:29 Temperature Pulse Rate 61 78 60 Pulse Rate [ Right] Respiratory 18 18 16 Rate Blood Pressure 122/73 143/87 135/74 Blood Pressure [Right Arm] O2 Sat by Pulse 96 98 97 Oximetry 09/14/23 09/14/23 09/14/23 04:52 06:32 07:55 Temperature 97.1 F L Pulse Rate 69 61 Pulse Rate [ 61 Right] Respiratory 16 16 14 Rate Blood Pressure 121/91 114/77 Blood Pressure 114/77 [Right Arm] O2 Sat by Pulse 96 95 95 Oximetry 09/14/23 11:21 Temperature 97.0 F L Pulse Rate Pulse Rate [ 65 Right] Respiratory 16 Rate Blood Pressure Blood Pressure 119/73 [Right Arm] O2 Sat by Pulse 98 Oximetry - Reevaluation(s) Reevaluation #1: 09/12/23 20:51 Medical records reviewed Reevaluation #2: 09/12/23 20:51 Patient this still have refill his ofloxacin lightheadedness. The ER Reevaluation #3: 09/12/23 20:51 Patient informed of results and questions answered Reevaluation #4: 09/12/23 20:51 Was pt. sent in by a medical professional or institution (, PA, [employer], urgent care, hospital, or penitentiary...) When possible be specific @ -no Did you speak to anyone other than the patient for history (EMS, parent, family, police, friend...)? What history was obtained from this source @ -no Did you review nursing and triage notes (agree or disagree)? Why? @ -agree Are old charts reviewed (outside hosp., previous admission, EMS record, old EKG, old radiological studies, urgent care reports/EKG's, penitentiary records)? Repo rt findings @ -yes Differential Diagnosis (chest pain, altered mental status, abdominal pain women, abdominal pain men, vaginal bleeding, weakness, fever, dyspnea, syncope, headache, dizziness, GI bleed, back pain, seizure, CVA, palpatations, mental health, musculoskeletal)? @ -prior EKG interpreted by me (3pts min.). @ -yes X-rays interpreted by me (1pt min.). @ -yes negative for acute disease CT interpreted by me (1pt min.). @ -no U/S interpreted by me (1pt. min.). @ -no What testing was considered but not performed or refused? (CT, X-rays, U/S, labs)? Why? @ -none What meds were considered but not given or refused? Why? @ -none Did you discuss the management of the patient with other professionals (professionals i.e. , PA, [employer], lab, RT, psych nurse, social services aide, military lawyer, te acher, sales and service officer, medical case manager)? Give summary @ -no Was smoking cessation discussed for >3mins.? @ -no Was critical care preformed (if so, how long)? @ -yes31 Were there social determinants of health that impacted care today? How? (Homelessness, low income, unemployed, alcoholism, drug addiction, transportation, low edu. Level, literacy, decrease access to med. care, long term, rehab)? @ -none Was there de-escalation of care discussed even if they declined (Discuss DNR or withdrawal of care, Hospice)? DNR status @ -no What co-morbidities impacted this encounter? (DM, HTN, Smoking, COPD, CAD, Cancer, CVA, ARF, Chemo, Hep., AIDS, mental health diagnosis, sleep apnea, morbid obesity)? @ -none Was patient admitted / discharged? Hospital course, mention meds given and route, prescriptions, significant lab abnormalities, going to OR and other pertinent info. @ - 68 Male to ER for evaluation of back pain and chest pain. Patient will be admitted for cardiac observation elevated troponin Admitted Undiagnosed new problem with uncertain prognosis? @ -no Drug Therapy requiring intensive monitoring for toxicity (Heparin, Nitro, Insulin, Cardizem)? @ -no Were any procedures done? @ -no Diagnosis/symptom? @ -Non-STEMI Acute, or Chronic, or Acute on Chronic? @ -Acute Uncomplicated (without systemic symptoms) or Complicated (systemic symptoms)? @ -Complicated Side effects of treatment? @ -no Exacerbation, Progression, or Severe Exacerbation? @ -exacerbation Poses a threat to life or bodily function? How? (Chest pain, [place], [place], pneumonia, PE, COPD, DKA, ARF, appy, cholecystitis, CVA, Diverticulitis, Homicidal, Suicidal, threat to staff... and all critical care pts) @ -yes with significant chest pain and elevated troponin Reevaluation #5: 09/12/23 20:51 Differential Chest Pain: Stable Angina, Unstable Angina, STEMI, NSTEMI Aortic Dissection, Pneumothorax, Musculoskeletal, Esophageal Spasm GERD, Cholecystitis, Pancreatitis, Zoster, this is not meant to be an all-inclusive list. - Consultations Consultation #1: Spoke with sound who agrees to admit the patient Medical Decision Making - Medical Decision Making 68 Male to ER for evaluation of back pain and chest pain. Patient will be admitted for cardiac observation elevated troponin - Lab Data Result diagrams: 09/12/23 18:56 09/12/23 18:56 Lab Results 09/12/23 09/12/23 09/12/23 Range/Units 18:56 18:56 18:56 WBC 8.2 (3.8-10.6) k/uL RBC 4.64 (4.30-5.90) m/uL Hgb 14.1 (13.0-17.5) gm/dL Hct 42.7 (39.0-53.0) % MCV 92.0 (80.0-100.0) fL MCH 30.5 (25.0-35.0) pg MCHC 33.1 (31.0-37.0) g/dL RDW 13.2 (11.5-15.5) % Plt Count 182 (150-450) k/uL MPV 9.8 Neutrophils % 72 % Lymphocytes % 20 % Monocytes % 4 % Eosinophils % 1 % Basophils % 1 % Neutrophils # 5.9 (1.3-7.7) k/uL Lymphocytes # 1.6 (1.0-4.8) k/uL Monocytes # 0.4 (0-1.0) k/uL Eosinophils # 0.1 (0-0.7) k/uL Basophils # 0.1 (0-0.2) k/uL PT 28.9 H (10.0-12.5) sec INR 2.9 H (<1.2) APTT 31.3 H (22.0-30.0) sec Sodium 142 (137-145) mmol/L Potassium 4.6 (3.5-5.1) mmol/L Chloride 109 H (98-107) mmol/L Carbon Dioxide 27 (22-30) mmol/L Anion Gap 6 mmol/L BUN 21 H (9-20) mg/dL Creatinine 0.85 (0.66-1.25) mg/dL Est GFR (CKD-EPI)AfAm >90 (>60 ml/min/1.73 sqM) Est GFR (CKD-EPI)NonAf 89 (>60 ml/min/1.73 sqM) Glucose 136 H (74-99) mg/dL Calcium 9.2 (8.4-10.2) mg/dL Magnesium 1.7 (1.6-2.3) mg/dL Total Bilirubin 0.5 (0.2-1.3) mg/dL AST 25 (17-59) U/L ALT 23 (4-49) U/L Alkaline Phosphatase 80 (38-126) U/L Troponin I (0.000-0.034) ng/mL Total Protein 7.1 (6.3-8.2) g/dL Albumin 4.2 (3.5-5.0) g/dL 09/12/23 Range/Units 18:56 WBC (3.8-10.6) k/uL RBC (4.30-5.90) m/uL Hgb (13.0-17.5) gm/dL Hct (39.0-53.0) % MCV (80.0-100.0) fL MCH (25.0-35.0) pg MCHC (31.0-37.0) g/dL RDW (11.5-15.5) % Plt Count (150-450) k/uL MPV Neutrophils % % Lymphocytes % % Monocytes % % Eosinophils % % Basophils % % Neutrophils # (1.3-7.7) k/uL Lymphocytes # (1.0-4.8) k/uL Monocytes # (0-1.0) k/uL Eosinophils # (0-0.7) k/uL Basophils # (0-0.2) k/uL PT (10.0-12.5) sec INR (<1.2) APTT (22.0-30.0) sec Sodium (137-145) mmol/L Potassium (3.5-5.1) mmol/L Chloride (98-107) mmol/L Carbon Dioxide (22-30) mmol/L Anion Gap mmol/L BUN (9-20) mg/dL Creatinine (0.66-1.25) mg/dL Est GFR (CKD-EPI)AfAm (>60 ml/min/1.73 sqM) Est GFR (CKD-EPI)NonAf (>60 ml/min/1.73 sqM) Glucose (74-99) mg/dL Calcium (8.4-10.2) mg/dL Magnesium (1.6-2.3) mg/dL Total Bilirubin (0.2-1.3) mg/dL AST (17-59) U/L ALT (4-49) U/L Alkaline Phosphatase (38-126) U/L Troponin I 0.138 H* (0.000-0.034) ng/mL Total Protein (6.3-8.2) g/dL Albumin (3.5-5.0) g/dL - EKG Data -: EKG Interpreted by Me (EKG is paced 69 [place] 178 QRS 164 QTc 456) - Radiology Data Radiology results: report reviewed (Chest x-ray is negative for acute disease), image reviewed Critical Care Time Critical Care Time: Yes Total Critical Care Time: 31 Disposition Clinical Impression: Back pain, Palpitations, NSTEMI (non-ST elevated myocardial infarction) Disposition: ADMITTED IP TO THIS HOSP Condition: Stable Is patient prescribed a controlled substance at d/c from ED?: No Time of Disposition: 20:30
[2023-09-12] MEDS ORDERED: NITROGLYCERIN SL TABS 0.4 MG TAB SUBLINGUAL PRN (20:48)
[2023-09-12] MEDS: HYDROmorphone 1 MG/ML 1 ML SYRINGE IVP STA (21:02)
[2023-09-12] MEDS: diazePAM 2 MG TAB PO STA (21:03)
[2023-09-12] MEDS: ASPIRIN 81 MG PO STA (21:03)
[2023-09-12] MEDS: DEXAMETHASONE SOD PHOSPHATE 10 MG/ML 1 ML VIAL IVP STA (21:14)
[2023-09-13] MEDS: MORPHINE SULFATE 4 MG/ML SYRINGE IV PRN (00:22)
[2023-09-13] MEDS: ALPRAZolam 0.25 MG TAB PO STA (01:20)
--- NOTE | 2023-09-13 01:27 | P.HPIM ---
History of Present Illness H&P Date: 09/12/23 Patient is a 68-year-old male with a PMH of A-fib on Coumadin, third-degree heart block status post pacemaker placement, COPD, type II DM, hypertension, hyperlipidemia, who presents to the emergency room with complaints of feeling unwell. Patient reports that earlier today he had a sensation similar to when he had his prior MIs with a strange flushing like sensation throughout his body with some palpitations and without associated shortness of breath. Denied experiencing cough, fever, chills, nausea, vomiting, abdominal pain, diarrhea. Reports feeling at his baseline at the time of interview. States that this sensation only lasted for few minutes and then resolved completely. Chest x-ray in emergency room revealed a generalized hazy appearance suspicious for pulmonary edema. EKG was V paced rhythm at 69 bpm as reviewed by me. Laboratory evaluation was remarkable for troponin of 0.138 (baseline 0.5), INR 2.9, with bloody UA, hemoglobin 14.1, platelet count 182, WBC count 8.2. ED documentation reviewed and case discussed with ED provider. Review of systems: Pertinent positives and negatives as discussed in HPI, a complete review of systems was performed and all other systems are negative. Physical examination: Vital signs reviewed General: non toxic, no distress, appears at stated age, normal weight Derm: no unusual rashes/lesions, warm Head: atraumatic, normocephalic, symmetric Eyes: EOMI, no lid lag, anicteric sclera, pupils equal round reactive to light ENT: Nose and ears atraumatic Neck: No cervical lymphadenopathy, trachea midline, supple Mouth: no lip lesion, mucus membranes moist Cardiovascular: S1S2 reg, no murmur, positive dorsalis pedis pulse bilateral, no edema Lungs: CTA bilateral, no rhonchi, no rales, no accessory muscle use Abdominal: soft, nontender to palpation, no guarding Ext: muscle strength 5 out of 5 in all 4 extremities grossly, no gross muscle atrophy, no contractures, Neuro: CN II-XI grossly intact, no gross focal neuro deficits Psych: Alert, oriented, appropriate affect Assessment: Non-ST elevation AR Hematuria Chronic conditions: A-fib, COPD, type II DM, hypertension, hyperlipidemia Imaging: Chest x-ray in emergency room revealed a generalized hazy appearance suspicious for pulmonary edema. Data Review: Laboratory evaluation was remarkable for troponin of 0.138 (baseline 0.5), INR 2.9, with bloody UA, hemoglobin 14.1, platelet count 182, WBC count 8.2. Plan: Patient currently therapeutic on Coumadin Cardiac monitoring Cardiology consulted Trend troponin Echocardiogram ordered Continue with aspirin Patient will need outpatient urology evaluation for hematuria Continue with home medications DVT prophylaxis: Coumadin The patient is admitted with an anticipated greater than 2 midnight stay for evaluation of Afib CODE STATUS: Full Code Discussed with: Patient Anticipated discharge place: Home Past Medical History Past Medical History: Asthma, Diabetes Mellitus, Hyperlipidemia, Hypertension Additional Past Medical History / Comment(s): NEUROPATHY History of Any Multi-Drug Resistant Organisms: None Reported Past Surgical History: Back Surgery, Cardiac Ablation, Ear Surgery, Orthopedic S urgery, Pacemaker, Tonsillectomy Additional Past Surgical History / Comment(s): knee surgery, Past Anesthesia/Blood Transfusion Reactions: No Reported Reaction Past Psychological History: Anxiety Smoking Status: Current every day smoker Past Alcohol Use History: None Reported Past Drug Use History: None Reported - Past Family History Mother Family Medical History: Cancer Additional Family Medical History / Comment(s): LUNG CANCER Father Family Medical History: Cancer Additional Family Medical History / Comment(s): LUNG CANCER Medications and Allergies Home Medications Medication Instructions Recorded Confirmed Type Acetaminophen-Codeine 300-30mg 2 tab PO Q6H PRN 11/21/15 09/12/23 History [Tylenol w/codeine #3] Atorvastatin Calcium [Lipitor] 20 mg PO HS 06/19/17 09/12/23 History Albuterol Sulfate [Proair Hfa] 2 puff INHALATION RT-Q6H PRN 08/25/18 09/12/23 History Cyclobenzaprine [Flexeril] 10 mg PO TID 08/25/18 09/12/23 History amLODIPine [Norvasc] 10 mg PO DAILY #30 tab 08/26/18 09/12/23 Rx Cholecalciferol [Vitamin D3 (25 50 mcg PO DAILY 08/15/22 09/12/23 History Mcg = 1000 Iu)] Valsartan 320 mg PO DAILY 08/15/22 09/12/23 History Nitroglycerin 0.4 mg SL Q5M PRN 08/16/22 09/12/23 History Metoprolol Succinate [Metoprolol 25 mg PO DAILY 09/12/23 09/12/23 History Succinate ER] Warfarin [Coumadin] 10 mg PO HS 09/12/23 09/12/23 History Allergies Allergy/AdvReac Type Severity Reaction Status Date / Time NSAIDS (Non-Steroidal Allergy Unknown Unknown Verified 09/12/23 22:13 Anti-Inflamma Androgenic Anabolic Steroid Allergy Unknown Verified 09/12/23 22:13 aspirin Allergy Stomach Verified 09/12/23 22:13 Pain azithromycin Allergy Unknown Verified 09/12/23 22:13 [From Zithromax Z-Boaz] ibuprofen [From Motrin] Allergy Unknown Verified 09/12/23 22:13 niacin Allergy Unknown Verified 09/12/23 22:13 dopamine AdvReac Severe Dyspnea Verified 09/12/23 22:13 Physical Exam Vitals: Vital Signs Temp Pulse Resp BP Pulse Ox 09/13/23 00:00 60 13 143/79 97 09/12/23 20:30 67 181 H 135/78 97 09/12/23 18:40 98.2 F 72 20 155/89 98 Intake and Output 09/12/23 09/12/23 09/13/23 14:59 22:59 06:59 Other: Weight 129.727 kg Results CBC & Chem 7: 09/12/23 18:56 09/12/23 18:56 Labs: Abnormal Lab Results - Last 24 Hours (Table) 09/12/23 09/12/23 09/12/23 Range/Units 18:56 18:56 18:56 PT 28.9 H (10.0-12.5) sec INR 2.9 H (<1.2) APTT 31.3 H (22.0-30.0) sec Chloride 109 H (98-107) mmol/L BUN 21 H (9-20) mg/dL Glucose 136 H (74-99) mg/dL Troponin I 0.138 H* (0.000-0.034) ng/mL 09/12/23 Range/Units 22:51 PT (10.0-12.5) sec INR (<1.2) APTT (22.0-30.0) sec Chloride (98-107) mmol/L BUN (9-20) mg/dL Glucose (74-99) mg/dL Troponin I 0.131 H* (0.000-0.034) ng/mL
[2023-09-13 07:12] LABS: INR 2.6 (<1.2); Prothrombin Time 25.8 sec (10.0-12.5)
[2023-09-13] MEDS: amLODIPine 10 MG TAB PO SCH (08:42)
[2023-09-13] MEDS: METOPROLOL SUCCINATE (ER) 25 MG TAB.ER.24H PO SCH (08:43)
[2023-09-13] MEDS: CYCLOBENZAPRINE 10 MG TAB PO SCH (08:43)
[2023-09-13] MEDS: VALSARTAN 160 MG TAB PO SCH (08:43)
[2023-09-13] MEDS: ATORVASTATIN 80 MG TAB PO SCH (08:43)
[2023-09-13] MEDS: ASPIRIN 325 MG TAB PO SCH (08:44)
[2023-09-13] MEDS ORDERED: DOBUTamine DRIP for NUC MED 500 MG/250 ML BAG IV ONE (10:03)
[2023-09-13] MEDS ORDERED: DOBUTamine DRIP for NUC MED 500 MG in DEXTROSE/WATER 1 250ML.BAG IV PRN (10:03)
[2023-09-13 11:44] LABS: Chol/HDL Ratio 2.67 Ratio; VLDL Calculation 15.84 mg/dL (5.00-40.00)
--- NOTE | 2023-09-13 13:47 | P.CRDCN ---
History of Present Illness Consult date: 09/13/23 Reason for Consult (text): NSTEMI History of present illness: History of present illness: This is a 68-year-old male patient of Dr. Saucedo with past medical history of sick sinus syndrome status post dual-chamber permanent pacemaker, right bundle branch block, paroxysmal atrial fibrillation, hypertension, diabetes. We have been asked to evaluate the patient for non-ST elevated myocardial infarction. Patient is seen today in the emergency center waiting for a bed on the cardiac stepdown unit. Patient states he has been feeling better now but after dinner yesterday he started having a flushing feeling which was very similar to the f eeling he had last August when he required pacemaker plantation. He was unsure if the feeling was about a panic attack or something different. The sensation Coming and going and he almost had a sensation of racing heart. Patient also had some shortness of breath with activity. During last office visit, patient was to be scheduled for Lexiscan stress test but patient later canceled as he was unable to do the stress test due to claustrophobia. EKG atrial and ventricularly paced rhythm Chest x-ray: Low lung volumes with generalized hazy appearance which could represent atelectasis versus pulmonary edema. CBC is unremarkable. INR 2.6. Sodium 132, potassium 4.6, chloride 109, CO2 27, BUN 21 and creatinine 0.85. Blood sugar 136. Magnesium 1.7. Liver function tests are within normal limits. Troponin 0.138, 0.131, 0.128. Home cardiac medications: Amlodipine 10 mg daily, Lipitor 20 mg at bedtime, metoprolol succinate 25 mg daily, Nitrostat as needed, valsartan 320 mg daily, Coumadin 10 mg bedtime. Dual-chamber pacemaker implantation on 08/16/2022 Echocardiogram performed on 08/16/2022 revealed severely increased left ventricular wall thickening. Left ventricular EF 65%. Bradycardia during exam. Mild to moderate mitral regurgitation, mild aortic stenosis with mean gradient of 14 mmHg. Atrial flutter ablation 02/2008 Lexiscan stress test 2014 stress views are only available. Mild decreased photon activity in the inferior basal segment. May represent soft tissue attenuation or previous myocardial infarction. Gated images showed normal wall motion and thickening. Cardiac catheterization performed 06/19/[address] Davis revealed normal coronary angiogram. Review Of Systems: At the time of my exam: CONSTITUTIONAL: Denies fever or chills. HEENT: Denies blurred vision, vision changes, or eye pain. Denies hemoptysis CARDIOVASCULAR: Denies chest pain. Denies orthopnea. Denies PND. Denies palpitations RESPIRATORY: Denies shortness of breath. GASTROINTESTINAL: Denies abdominal pain. Denies nausea or vomiting. HEMATOLOGIC: Denies bleeding disorders. GENITOURINARY: Denies any blood in urine. SKIN: Denies pruitis. Denies rash. Physical examination: Gen: This is a 68-year-old male. He appears to be in no acute distress. VS: reviewed HEENT: Head is atraumatic, normocephalic. Pupils equal, round. Sclerae is anicteric. NECK: Supple. No JVD. LUNGS: Clear to auscultation. No wheezes or rhonchi. No intercostal retractions. HEART: Regular rate and rhythm. No murmur. ABDOMEN: Soft No tenderness. EXTREMITIES: No pedal edema. No calf tenderness. NEUROLOGICAL: Patient is awake, alert and oriented x3. Assessment: Elevated troponins in a patient with known chronically elevated troponins most likely secondary to LVH History of sick sinus syndrome status post dual-chamber permanent pacemaker Right bundle branch block Paroxysmal atrial fibrillation on Coumadin Hypertension Diabetes Plan: Continue patient's home cardiac medications Obtain dobutamine stress test today Interrogate pacemaker Obtain 2-D echocardiogram and Doppler study to assess cardiac structure and function If stress test and echocardiogram are unremarkable, patient is cleared for discharge and may follow-up in the office with Dr. saucedo in 1 to 2 weeks. Thank you kindly for this consultation. Nurse practitioner note has been reviewed, I agree with documented findings and plan of care. Patient was seen and examined. Past Medical History Past Medical History: Asthma, Diabetes Mellitus, Hyperlipidemia, Hypertension Additional Past Medical History / Comment(s): NEUROPATHY History of Any Multi-Drug Resistant Organisms: None Reported Past Surgical History: Back Surgery, Cardiac Ablation, Ear Surgery, Orthopedic Surgery, Pacemaker, Tonsillectomy Additional Past Surgical History / Comment(s): knee surgery, Past Anesthesia/Blood Transfusion Reactions: No Reported Reaction Past Psychological History: Anxiety Smoking Status: Current every day smoker Past Alcohol Use History: None Reported Past Drug Use History: None Reported - Past Family History Mother Family Medical History: Cancer Additional Family Medical History / Comment(s): LUNG CANCER Father Family Medical History: Cancer Additional Family Medical History / Comment(s): LUNG CANCER Medications and Allergies Home Medications Medication Instructions Recorded Confirmed Type Acetaminophen-Codeine 300-30mg 2 tab PO Q6H PRN 11/21/15 09/12/23 History [Tylenol w/codeine #3] Atorvastatin Calcium [Lipitor] 20 mg PO HS 06/19/17 09/12/23 History Albuterol Sulfate [Proair Hfa] 2 puff INHALATION RT-Q6H PRN 08/25/18 09/12/23 History Cyclobenzaprine [Flexeril] 10 mg PO TID 08/25/18 09/12/23 History amLODIPine [Norvasc] 10 mg PO DAILY #30 tab 08/26/18 09/12/23 Rx Cholecalciferol [Vitamin D3 (25 50 mcg PO DAILY 08/15/22 09/12/23 History Mcg = 1000 Iu)] Valsartan 320 mg PO DAILY 08/15/22 09/12/23 History Nitroglycerin 0.4 mg SL Q5M PRN 08/16/22 09/12/23 History Metoprolol Succinate [Metoprolol 25 mg PO DAILY 09/12/23 09/12/23 History Succinate ER] Warfarin [Coumadin] 10 mg PO HS 09/12/23 09/12/23 History Allergies Allergy/AdvReac Type Severity Reaction Status Date / Time NSAIDS (Non-Steroidal Allergy Unknown Unknown Verified 09/12/23 22:13 Anti-Inflamma Androgenic Anabolic Steroid Allergy Unknown Verified 09/12/23 22:13 aspirin Allergy Stomach Verified 09/12/23 22:13 Pain azithromycin Allergy Unknown Verified 09/12/23 22:13 [From Zithromax Z-Boaz] ibuprofen [From Motrin] Allergy Unknown Verified 09/12/23 22:13 niacin Allergy Unknown Verified 09/12/23 22:13 dopamine AdvReac Severe Dyspnea Verified 09/12/23 22:13 Physical Exam Vitals: Vital Signs Temp Pulse Resp BP Pulse Ox 09/13/23 07:28 97.6 F 61 18 146/82 95 09/13/23 05:30 63 16 130/80 97 09/13/23 00:00 60 13 143/79 97 09/12/23 20:30 67 181 H 135/78 97 09/12/23 18:40 98.2 F 72 20 155/89 98 Intake and Output 09/12/23 09/13/23 09/13/23 22:59 06:59 14:59 Other: Weight 129.727 kg Results 09/12/23 18:56 09/12/23 18:56 Cardiac Enzymes 09/12/23 09/12/23 09/12/23 Range/Units 18:56 18:56 22:51 AST 25 (17-59) U/L Troponin I 0.138 H* 0.131 H* (0.000-0.034) ng/mL 09/13/23 Range/Units 01:14 AST (17-59) U/L Troponin I 0.128 H* (0.000-0.034) ng/mL Coagulation 09/12/23 09/13/23 Range/Units 18:56 06:15 PT 28.9 H 25.8 H (10.0-12.5) sec APTT 31.3 H (22.0-30.0) sec CBC 09/12/23 Range/Units 18:56 WBC 8.2 (3.8-10.6) k/uL RBC 4.64 (4.30-5.90) m/uL Hgb 14.1 (13.0-17.5) gm/dL Hct 42.7 (39.0-53.0) % Plt Count 182 (150-450) k/uL Comprehensive Metabolic Panel 09/12/23 Range/Units 18:56 Sodium 142 (137-145) mmol/L Potassium 4.6 (3.5-5.1) mmol/L Chloride 109 H (98-107) mmol/L Carbon Dioxide 27 (22-30) mmol/L BUN 21 H (9-20) mg/dL Creatinine 0.85 (0.66-1.25) mg/dL Glucose 136 H (74-99) mg/dL Calcium 9.2 (8.4-10.2) mg/dL AST 25 (17-59) U/L ALT 23 (4-49) U/L Alkaline Phosphatase 80 (38-126) U/L Total Protein 7.1 (6.3-8.2) g/dL Albumin 4.2 (3.5-5.0) g/dL Current Medications Generic Name Dose Route Start Last Admin Trade Name Freq PRN Reason Stop Dose Admin Amlodipine Besylate 10 mg 09/13/23 09:00 Amlodipine 10 Mg Tab PO DAILY [facility] Aspirin 325 mg 09/13/23 09:00 Aspirin 325 Mg Tab PO DAILY [facility] Atorvastatin Calcium 80 mg 09/13/23 09:00 Atorvastatin 80 Mg Tab PO DAILY [facility] Cyclobenzaprine HCl 10 mg 09/13/23 09:00 Cyclobenzaprine 10 Mg Tab PO TID [facility] Metoprolol Succinate 25 mg 09/13/23 09:00 Metoprolol Succinate (Er) 25 Mg Tab.Er.24h PO DAILY [facility] Miscellaneous Information 1 each 09/13/23 01:27 Warfarin Per Pharmacy MISCELLANE DIRECTED PRN Per Protocol Protocol Morphine Sulfate 4 mg 09/12/23 20:48 09/13/23 06:59 Morphine Sulfate 4 Mg/Ml Syringe IV 4 mg Q4HR PRN Administration Chest Pain Nitroglycerin 0.4 mg 09/12/23 20:48 Nitroglycerin Sl Tabs 0.4 Mg Tab SUBLINGUAL Q5M PRN Chest Pain Valsartan 320 mg 09/13/23 09:00 Valsartan 160 Mg Tab PO DAILY [facility] Warfarin Sodium 10 mg 09/13/23 18:00 Warfarin 5 Mg Tab PO 09/13/23 18:01 ONCE ONE Intake and Output 09/12/23 09/13/23 09/13/23 22:59 06:59 14:59 Other: Weight 129.727 kg 09/12/23 18:56 09/12/23 18:56
--- NOTE | 2023-09-13 14:24 | P.PN ---
Subjective Progress Note Date: 09/13/23 Hospital Course: 68-year-old male with a history of atrial fibrillation on Coumadin, sick sinus syndrome status post pacemaker, COPD, type 2 diabetes, hypertension, dyslipidemia presenting with complaints of feeling unwell, he claims that he felt similar to when he had his previous MIs. In the ED, Chest x-ray in emergency room revealed a generalized hazy appearance suspicious for pulmonary edema. EKG was V paced rhythm at 69 bpm. Laboratory evaluation was remarkable for troponin of 0.138 (baseline 0.5), INR 2.9, with bloody UA, hemoglobin 14.1, platelet count 182, WBC count 8.2. Patient admitted for NSTEMI, cardiology consulted. Subjective: Patient seen and examined at bedside. No acute events overnight. Denies any significant chest pain. Pertinent positives and negatives as discussed above, a complete review of systems was performed and all other systems are negative. Vitals Signs Reviewed. General: non toxic, no distress, appears at stated age, normal weight Derm: no unusual rashes/lesions, warm Head: atraumatic, normocephalic, symmetric Eyes: EOMI, no lid lag, anicteric sclera, pupils equal round reactive to light ENT: Nose and ears atraumatic Neck: No cervical lymphadenopathy, trachea midline, supple Mouth: no lip lesion, mucus membranes moist Cardiovascular: S1S2 reg, no murmur, positive dorsalis pedis pulse bilateral, no edema Lungs: CTA bilateral, no rhonchi, no rales, no accessory muscle use Abdominal: soft, nontender to palpation, no guarding Ext: muscle strength 5 out of 5 in all 4 extremities grossly, no gross muscle atrophy, no contractures, Neuro: CN II-XI grossly intact, no gross focal neuro deficits Psych: Alert, oriented, appropriate affect Data Reviewed Today: Pertinent Labs: Total cholesterol 153, LDL 80, troponin peaked at 0.138, INR 2.6 Imaging: EKG independently interpreted from this morning, shows atrial and ventricularly paced rhythm. Assessment and Plan: NSTEMI, likely nonischemic History of sick sinus syndrome status post dual-chamber pacemaker Paroxysmal atrial fibrillation on Coumadin Hypertension -Cardiology note reviewed, echocardiogram and stress test pending, also interrogate pacemaker -Continue warfarin dosed per pharmacy, currently therapeutic -Continue amlodipine 10, metoprolol 25, valsartan 320 -Continue aspirin 81 mg, atorvastatin 80 mg daily -Continue telemetry monitoring DVT ppx: Coumadin Code status: Full code Anticipated discharge place: Pending clinical course Anticipated discharge time: Pending clinical course Objective - Vital Signs Vital signs: Vital Signs Temp 97.6 F 09/13/23 07:28 Pulse 62 09/13/23 11:36 Resp 18 09/13/23 11:36 BP 149/88 09/13/23 11:36 Pulse Ox 98 09/13/23 11:36 FiO2 Intake & Output 09/12/23 09/13/23 09/13/23 18:59 06:59 18:59 Weight 129.727 kg - Labs CBC & Chem 7: 09/12/23 18:56 09/12/23 18:56 Labs: Abnormal Lab Results - Last 24 Hours (Table) 09/12/23 09/12/23 09/12/23 Range/Units 18:56 18:56 18:56 PT 28.9 H (10.0-12.5) sec INR 2.9 H (<1.2) APTT 31.3 H (22.0-30.0) sec Chloride 109 H (98-107) mmol/L BUN 21 H (9-20) mg/dL Glucose 136 H (74-99) mg/dL Troponin I 0.138 H* (0.000-0.034) ng/mL 09/12/23 09/13/23 09/13/23 Range/Units 22:51 01:14 06:15 PT 25.8 H (10.0-12.5) sec INR 2.6 H (<1.2) APTT (22.0-30.0) sec Chloride (98-107) mmol/L BUN (9-20) mg/dL Glucose (74-99) mg/dL Troponin I 0.131 H* 0.128 H* (0.000-0.034) ng/mL
--- NOTE | 2023-09-13 17:58 | CA ---
Transthoracic Echo Report Name: Willie Gomez Age: 68 Gender: M : 1955 Exam Date: 09/13/2023 10:07 Exam Location: [place] [facility] Ht (in): 71 Wt (lb): 286 Ordering Physician: Kiran Simpson DO Attending/Referring Phys: [id number], Calvin Founder Chairman And Chief Creative Officer Gaurav Rose RD Procedure CPT: Indications: elevTrop Cardiac Hx: Technical Quality: Technically difficult study Contrast 1: Total Dose (mL): Contrast 2: Total Dose (mL): MEASUREMENTS (Male / Female) Normal Values 2D ECHO LV Diastolic Diameter PLAX 4.7 cm 4.2 - 5.9 / 3.9 - 5.3 cm IVS Diastolic Thickness 2.3 cm 0.6 - 1.0 / 0.6 - 0.9 cm LVPW Diastolic Thickness 1.6 cm 0.6 - 1.0 / 0.6 - 0.9 cm LV Relative Wall Thickness 0.8 RV Internal Dim ED PLAX 3.1 cm LVOT Diameter 2.3 cm Aortic Root Diameter 3.3 cm LA Systolic Diameter LX 3.3 cm 3.0 - 4.0 / 2.7 - 3.8 cm LV Diastolic Volume MOD 4C 78.8 cm??? LV Systolic Volume MOD 4C 31.4 cm??? LV Ejection Fraction MOD 4C 60.2 % LV Cardiac Index MOD 4C 1146.6 cm???/min???m??? LV Diastolic Length 4C 7.4 cm LV Systolic Length 4C 6.7 cm Ascending Aorta Diameter 3.4 cm DOPPLER AV Peak Velocity 177.3 cm/s AV Peak Gradient 12.6 mmHg LVOT Peak Velocity 88.9 cm/s LVOT Peak Gradient 3.2 mmHg LVOT Velocity Time Integral 21.0 cm LVOT Stroke Volume 84.3 cm??? LVOT Stroke Volume Index 34.3 ml/m??? LVOT Cardiac Index 2039.0 cm???/min???m??? AV Area Cont Eq pk 2.0 cm??? MV Peak Velocity 93.3 cm/s MV Peak Gradient 3.5 mmHg MV Mean Velocity 50.0 cm/s MV Mean Gradient 1.2 mmHg MV Velocity Time Integral 43.8 cm Mitral E Point Velocity 71.7 cm/s Mitral A Point Velocity 86.9 cm/s Mitral E to A Ratio 0.8 MV Deceleration Time 291.0 ms MV E' Velocity 4.1 cm/s Mitral E to MV E' Ratio 17.4 PV Peak Velocity 107.7 cm/s PV Peak Gradient 4.6 mmHg FINDINGS Left Ventricle Severe concentric LVH with, septal wall thickening more than posterior wall. LVEF estimated at 55%. No obvious regional wall motion abnormality. Right Ventricle Normal right ventricular size. Catheter/pacemaker wire in the right ventricular cavity. Right Atrium Normal right atrial size. Left Atrium Mildly increased left atrial area. Mitral Valve Mild posterior MAC. No mitral regurgitation. No mitral stenosis. Aortic Valve Trileaflet aortic valve. No aortic valve stenosis or regurgitation. No evidence of increasing LVOT gradients. Mean gradient measured at 1.3 mmHg Tricuspid Valve Structurally normal tricuspid valve. Mild TR. Pulmonic Valve Structurally normal pulmonic valve. Trace pulmonic regurgitation. Pericardium Not visualized well. Aorta Normal size aortic root. CONCLUSIONS Technically difficult study. LVEF estimated at 55%. No obvious regional wall motion abnormality. Severe concentric LVH with, septal wall thickening more than posterior wall. No evidence of increasing LVOT gradients. No pericardial effusion Previewed by: Dr Abimael Chávez (Electronically Signed) Final Date: 13 September 2023 17:57
[2023-09-13] MEDS ORDERED: WARFARIN 5 MG TAB PO ONE (18:00)
--- NOTE | 2023-09-13 18:15 | CA ---
Dobutamine Stress Echocardiogram Report Willie Gomez Age: 68 Gender: M : 1955 Exam Date: 09/13/2023 13:15 Exam Location: [place] [facility] Ordering Physician: Alva Glynn Referring Physician: Gretta DE LEON Acid Correction Hand: Miranda Zarco RDCS Technologist: Ht (in): 71 Wt (lb): 286 Procedure CPT: Indication: elevated trop, ate this morning ICD-9 Codes: Rhythm: Patient History: HTN, DM, CATH, PACEMAKER Cardiac Medications: SEE CHART Medications in past 24 hours: Contrast: Total Dose (mL): Stress Results Protocol: Dobutamine Peak Dose (???g/kg/min): 40 Duration (min:sec): Atropine:(mg) 0.5 Target HR: 128 Double Product: [id number] Resting HR: 62 Resting BP: 128 / 86 Peak HR: 120 Peak BP: 148 / 71 Max Predicted HR: 151 79 % Max Predicted HR Stress Summary: BP Response: Reason for Termination: END OF DOSAGE/ TARGET HR NOT ACHIEVED Cardiac Symptoms: ASYMPTOMATIC ECG Analysis Resting EKG: AV paced rhythm heart rate 64 beats a minute, LBBB Stress EKG: Patient was not able to achieve 79% of aged. Maximum heart rate. Dobutamine echo is not appropriate stress test and patient holds up over his pacemaker. ECG is not diagnostic. Arrhythmia: Patient did had instances of nonsustained ventricular tachycardias with dobutamine infusion Echo Analysis Base Echo Analysis: Low Echo Anaylsis: Peak Echo Analysis: Recovery Echo: MEASUREMENTS (Male/Female) Normal Values CONCLUSIONS Nondiagnostic stress test Patient was not able to achieve 85% of aged. Maximum heart rate dobutamine infusion. ECGs nondiagnostic due to paced rhythm Examination of wall motion abnormality on echo cardiographic was challenging due to severe LVH and atypical septal motion due to RV paced rhythm Consider Lexiscan Nuclear if clinical suspicion of ischemia Dr Abimael Chávez (Electronically Signed) Final Date: 13 September 2023 18:14
[2023-09-13] MEDS: WARFARIN 10 MG TAB PO ONE (18:56)
[2023-09-14] MEDS: ASPIRIN 81 MG PO SCH (08:25)
[2023-09-14] MEDS: Acetaminophen-Codeine 300-30mg TAB PO PRN (08:32)
[2023-09-14 09:36] LABS: INR 2.3 (<1.2); Prothrombin Time 22.9 sec (10.0-12.5)
[2023-09-14 11:32] VITALS: BP 119/73; PULSE 65; RESP 16; TEMP 97
--- NOTE | 2023-09-14 12:09 | P.PN ---
Subjective Progress Note Date: 09/14/23 History of present illness: This is a 68-year-old male patient of Dr. Saucedo with past medical history of sick sinus syndrome status post dual-chamber permanent pacemaker, right bundle branch block, paroxysmal atrial fibrillation, hypertension, diabetes. We have been asked to evaluate the patient for non-ST elevated myocardial infarction. Patient is seen today in the emergency center waiting for a bed on the cardiac stepdown unit. Patient states he has been feeling better now but after dinner yesterday he started having a flushing feeling which was very similar to the feeling he had last August when he required pacemaker plantation. He was unsure if the feeling was about a panic attack or something different. The sensation Coming and going and he almost had a sensation of racing heart. P atient also had some shortness of breath with activity. During last office visit, patient was to be scheduled for Lexiscan stress test but patient later canceled as he was unable to do the stress test due to claustrophobia. EKG atrial and ventricularly paced rhythm Chest x-ray: Low lung volumes with generalized hazy appearance which could represent atelectasis versus pulmonary edema. CBC is unremarkable. INR 2.6. Sodium 132, potassium 4.6, chloride 109, CO2 27, BUN 21 and creatinine 0.85. Blood sugar 136. Magnesium 1.7. Liver function tests are within normal limits. Troponin 0.138, 0.131, 0.128. Home cardiac medications: Amlodipine 10 mg daily, Lipitor 20 mg at bedtime, metoprolol succinate 25 mg daily, Nitrostat as needed, valsartan 320 mg daily, Coumadin 10 mg bedtime. Dual-chamber pacemaker implantation on 08/16/2022 Echocardiogram performed on 08/16/2022 revealed severely increased left ventricular wall thickening. Left ventricular EF 65%. Bradycardia during exam. Mild to moderate mitral regurgitation, mild aortic stenosis with mean gradient of 14 mmHg. Atrial flutter ablation 02/2008 Lexiscan stress test 2014 stress views are only available. Mild decreased photon activity in the inferior basal segment. May represent soft tissue attenuation or previous myocardial infarction. Gated images showed normal wall motion and thickening. Cardiac catheterization performed 06/19/[address] Davis revealed normal coronary angiogram. 09/14/23 Pt sitting up in bedside chair. Chest pain/flushing sensation has resolved. He feels "terrible" from not sleeping well and right lower back pain. No shortness of breath. ECHO with EF 55%, severe LVH. Dobutamine stress test was nondiagnostic as he was unable to reach goal. Physical examination: Gen: This is a 68-year-old male. He appears to be in no acute distress. VS: reviewed HEENT: Head is atraumatic, normocephalic. Pupils equal, round. Sclerae is anicteric. NECK: Supple. No JVD. LUNGS: Clear to auscultation. No wheezes or rhonchi. No intercostal retractions. HEART: Regular rate and rhythm. No murmur. ABDOMEN: Soft No tenderness. EXTREMITIES: No pedal edema. No calf tenderness. NEUROLOGICAL: Patient is awake, alert and oriented x3. Assessment: Elevated troponins in a patient with known chronically elevated troponins most likely secondary to LVH History of sick sinus syndrome status post dual-chamber permanent pacemaker Right bundle branch block Paroxysmal atrial fibrillation on Coumadin Hypertension Diabetes Plan: Continue patient's home cardiac medications. Interrogation of pacemaker was unrevealing. Stress test reviewed, unable to reach HR goal however unrevealing. Unable to do Lexiscan due to claustrophobia. Troponins have been chronically elevated. Heart cath not indicated at this time. OK to DC from cardiology standpoint. Follow up in office in [address] Saucedo. Nurse practitioner note has been reviewed, I agree with documented findings and plan of care. Patient was seen and examined. Objective - Vital Signs Vital signs: Vital Signs Temp 97.1 F L 09/14/23 07:55 Pulse 61 09/14/23 07:55 Resp 14 09/14/23 07:55 BP 114/77 09/14/23 07:55 Pulse Ox 95 09/14/23 07:55 FiO2 - Labs CBC & Chem 7: 09/12/23 18:56 09/12/23 18:56
--- NOTE | 2023-09-14 12:33 | P.DS ---
Providers Date of admission: 09/12/23 20:50 Expected date of discharge: 09/14/23 Attending physician: Jama Alejandro MD Consults: 09/12/23 20:48 Consult Physician Urgent Consulting Provider: Adiel Graves Consult Reason/Comments: [email or web address] Do you want consulting provider notified?: Yes Primary care physician: [facility] Hospital Course: Discharge Diagnosis: nonischemic, chronic elevated troponin History of sick sinus syndrome status post dual-chamber pacemaker Paroxysmal atrial fibrillation on Coumadin Hypertension Hospital Course: 68-year-old male with a history of atrial fibrillation on Coumadin, sick sinus syndrome status post pacemaker, COPD, type 2 diabetes, hypertension, dyslipidemia presenting with complaints of feeling unwell, he claims that he felt similar to when he had his previous MIs. In the ED, Chest x-ray in emergency room revealed a generalized hazy appearance suspicious for pulmonary edema. EKG was V paced rhythm at 69 bpm. Laboratory evaluation was remarkable for troponin of 0.138 (baseline 0.5), INR 2.9, with bloody UA, hemoglobin 14.1, platelet count 182, WBC count 8.2. Patient admitted for NSTEMI, cardiology consulted. Pacemaker was interrogated, was unrevealing. Stress test, able to reach goal heart rate, unable to do Lexiscan due to claustrophobia. Troponins have been chronically elevated. Patient is asymptomatic at the time of discharge. Cardiology recommending 1 week follow-up. Patient seen and examined at bedside. Vital signs reviewed and stable. General: Nontoxic, no distress, appears at stated age Derm: Warm, dry Head: Atraumatic, normocephalic, symmetric Eyes: EOMI, no lid lag, anicteric sclera Mouth: No lip lesion, mucus membranes moist Cardiovascular: S1S2 reg, no murmur Lungs: CTA bilateral, no rhonchi, no rales, no accessory muscle use Abdominal: Soft, nontender to palpation, no guarding, no appreciable organomegaly Ext: No gross muscle atrophy, no edema, no contractures Neuro: CN II-XI grossly intact, no focal neuro deficits Psych: Alert, oriented, appropriate affect A total of 55 minutes of time were spent preparing this complex discharge summary. Patient was discharged on 09/14/2023 at 12: 32. Patient Condition at Discharge: Stable Plan - Discharge Summary New Discharge Prescriptions: Continue Acetaminophen-Codeine 300-30mg [Tylenol w/codeine #3] 2 tab PO Q6H PRN PRN Reason: Pain Atorvastatin Calcium [Lipitor] 20 mg PO HS Albuterol Sulfate [Proair Hfa] 2 puff INHALATION RT-Q6H PRN PRN Reason: Shortness Of Breath Cyclobenzaprine [Flexeril] 10 mg PO TID amLODIPine [Norvasc] 10 mg PO DAILY #30 tab Cholecalciferol [Vitamin D3 (25 Mcg = 1000 Iu)] 50 mcg PO DAILY Nitroglycerin 0.4 mg SL Q5M PRN PRN Reason: Chest Pain Valsartan 320 mg PO DAILY Warfarin [Coumadin] 10 mg PO HS Metoprolol Succinate [Metoprolol Succinate ER] 25 mg PO DAILY Discharge Medication List Acetaminophen-Codeine 300-30mg [Tylenol w/codeine #3] 2 tab PO Q6H PRN 11/21/15 [History] Atorvastatin Calcium [Lipitor] 20 mg PO HS 06/19/17 [History] Albuterol Sulfate [Proair Hfa] 2 puff INHALATION RT-Q6H PRN 08/25/18 [History] Cyclobenzaprine [Flexeril] 10 mg PO TID 08/25/18 [History] amLODIPine [Norvasc] 10 mg PO DAILY #30 tab 08/26/18 [Rx] Cholecalciferol [Vitamin D3 (25 Mcg = 1000 Iu)] 50 mcg PO DAILY 08/15/22 [History] Valsartan 320 mg PO DAILY 08/15/22 [History] Nitroglycerin 0.4 mg SL Q5M PRN 08/16/22 [History] Metoprolol Succinate [Metoprolol Succinate ER] 25 mg PO DAILY 09/12/23 [History] Warfarin [Coumadin] 10 mg PO HS 09/12/23 [History] Follow up Appointment(s)/Referral(s): [facility],Clinic [Primary Care Provider] - 1-2 days Derek Saucedo MD [STAFF PHYSICIAN] - 1 Week Patient Instructions/Handouts: High Troponin Levels (GEN) Activity/Diet/Wound Care/Special Instructions: Please see cardiology. Discharge Disposition: HOME SELF-CARE
== END 2023-09-14 13:22 | disposition home or self-care (01) | DRG 305 ==
LOC: EC 18:30 → 3SCARD 20:50
PROVIDERS: ADMIT Internal Medicine; ATTEND Internal Medicine
DX: I11.9 Hypertensive heart disease without heart failure (principal); R79.89 Other specified abnormal findings of blood chemistry; I48.0 Paroxysmal atrial fibrillation; M54.9 Dorsalgia, unspecified; J44.89 Other specified chronic obstructive pulmonary disease; R31.9 Hematuria, unspecified; F40.240 Claustrophobia; E78.5 Hyperlipidemia, unspecified; I45.10 Unspecified right bundle-branch block; I49.5 Sick sinus syndrome; F41.9 Anxiety disorder, unspecified; F17.200 Nicotine dependence, unspecified, uncomplicated; E11.40 Type 2 diabetes mellitus with diabetic neuropathy, unspecified; Z95.0 Presence of cardiac pacemaker; Z79.899 Other long term (current) drug therapy; Z79.01 Long term (current) use of anticoagulants; I25.2 Old myocardial infarction; Z88.6 Allergy status to analgesic agent; Z88.1 Allergy status to other antibiotic agents; Z88.8 Allergy status to other drugs, medicaments and biological substances; Z88.3 Allergy status to other anti-infective agents
CPT/HCPCS: 36415; 71046; 80053; 80061; 83735; 84484; 85025; 85610; 85730; 93005; 93306; 93351; 96374; 96375; 96376; 99291

== ENCOUNTER 2024-05-18 11:15 | Emergency (ER) | payer OTHER, MEDICARE ==
[2024-05-18 11:21] VITALS: TEMP 97.8
--- NOTE | 2024-05-18 13:11 | ED ---
General Adult HPI - General Chief complaint: Extremity Injury, Upper Stated complaint: L arm injury Time Seen by Provider: 05/18/24 12:11 Source: patient, RN notes reviewed Mode of arrival: ambulatory Limitations: no limitations - History of Present Illness Initial comments: Patient is a 68-year-old male presenting to the emergency department with yoko rns with left arm injury. Incident occurred about 5 days ago while moving. Patient was trying to get in a car and use his weight when he slipped. Patient had sudden discomfort of left upper biceps region. Patient has noticed swelling and bruising since that time. Patient is on blood thinners. No other areas of injury or concern - Related Data Home Medications Medication Instructions Recorded Confirmed Acetaminophen-Codeine 300-30mg 2 tab PO Q6H PRN 11/21/15 09/12/23 [Tylenol w/codeine #3] Atorvastatin Calcium [Lipitor] 20 mg PO HS 06/19/17 09/12/23 Albuterol Sulfate [Proair Hfa] 2 puff INHALATION RT-Q6H PRN 08/25/18 09/12/23 Cyclobenzaprine [Flexeril] 10 mg PO TID 08/25/18 09/12/23 Cholecalciferol [Vitamin D3 (25 50 mcg PO DAILY 08/15/22 09/12/23 Mcg = 1000 Iu)] Valsartan 320 mg PO DAILY 08/15/22 09/12/23 Nitroglycerin 0.4 mg SL Q5M PRN 08/16/22 09/12/23 Metoprolol Succinate [Metoprolol 25 mg PO DAILY 09/12/23 09/12/23 Succinate ER] Warfarin [Coumadin] 10 mg PO HS 09/12/23 09/12/23 Previous Rx's Medication Instructions Recorded amLODIPine [Norvasc] 10 mg PO DAILY #30 tab 08/26/18 Allergies Allergy/AdvReac Type Severity Reaction Status Date / Time NSAIDS (Non-Steroidal Allergy Unknown Unknown Verified 05/18/24 11:21 Anti-Inflamma Androgenic Anabolic Steroid Allergy Unknown Verified 05/18/24 11:21 aspirin Allergy Stomach Verified 05/18/24 11:21 Pain azithromycin Allergy Unknown Verified 05/18/24 11:21 [From Zithromax Z-Boaz] ibuprofen [From Motrin] Allergy Unknown Verified 05/18/24 11:21 niacin Allergy Unknown Verified 05/18/24 11:21 dopamine AdvReac Severe Dyspnea Verified 05/18/24 11:21 Review of Systems ROS Statement: Those systems with pertinent positive or pertinent negative responses have been documented in the HPI. ROS Other: All systems not noted in ROS Statement are negative. Constitutional: Denies: fever Eyes: Denies: eye pain ENT: Denies: ear pain Respiratory: Denies: cough Cardiovascular: Denies: chest pain Endocrine: Denies: fatigue Gastrointestinal: Denies: abdominal pain Musculoskeletal: Reports: as per HPI Skin: Reports: as per HPI Past Medical History Past Medical History: Asthma, Diabetes Mellitus, Hyperlipidemia, Hypertension Additional Past Medical History / Comment(s): NEUROPATHY History of Any Multi-Drug Resistant Organisms: None Reported Past Surgical History: Back Surgery, Cardiac Ablation, Ear Surgery, Orthopedic Surgery, Pacemaker, Tonsillectomy Additional Past Surgical History / Comment(s): knee surgery, Past Anesthesia/Blood Transfusion Reactions: No Reported Reaction Past Psychological History: Anxiety Smoking Status: Current every day smoker Past Alcohol Use History: None Reported Past Drug Use History: None Reported - Past Family History Mother Family Medical History: Cancer Additional Family Medical History / Comment(s): LUNG CANCER Father Family Medical History: Cancer Additional Family Medical History / Comment(s): LUNG CANCER General Exam Limitations: no limitations General appearance: alert, in no apparent distress Head exam: Present: normocephalic Eye exam: Present: normal appearance Neck exam: Present: normal inspection. Absent: tenderness Respiratory exam: Present: normal lung sounds bilaterally Cardiovascular Exam: Present: regular rate, normal rhythm GI/Abdominal exam: Present: soft. Absent: tenderness Extremities exam: Present: other (Left anterior upper extremity with fullness and ecchymosis. There is some weakness with flexion at the elbow. Distally the extremity is neurovascular intact. Radial pulse intact) Neurological exam: Present: alert. Absent: motor sensory deficit Psychiatric exam: Present: normal affect, normal mood Skin exam: Present: normal color Course Vital Signs 05/18/24 11:18 Temperature 97.8 F Pulse Rate 90 Respiratory 20 Rate Blood Pressure 115/71 O2 Sat by Pulse 96 Oximetry Medical Decision Making - Medical Decision Making Was pt. sent in by a medical professional or institution (, PA, RADIOTELEGRAPH OPERATOR, urgent care, hospital, or care home...) When possible be specific @ -No Did you speak to anyone other than the patient for history (EMS, parent, family, police, friend...)? What history was obtained from this source @ -No Did you review nursing and triage notes (agree or disagree)? Why? @ -I reviewed and agree with nursing and triage notes Were old charts reviewed (outside hosp., previous admission, EMS record, old EKG, old radiological studies, urgent care reports/EKG's, care home records)? Report findings @ -No old charts were reviewed Differential Diagnosis (chest pain, altered mental status, abdominal pain women, abdominal pain men, vaginal bleeding, weakness, fever, dyspnea, syncope, headache, dizziness, GI bleed, back pain, seizure, CVA, palpatations, mental health, musculoskeletal)? @ -Differential Musculoskeletal Muscular strain, contusion, ligament sprain, fracture, arthritis, septic arthritis, bursitis, cellulitis, muscle spasm, nerve compression, DVT, arterial occlusion, herpes zoster, electrolyte abnormality, tumor.... This is not meant to be in all inclusive list EKG interpreted by me (3pts min.). @ -As above X-rays interpreted by me (1pt min.). @ -Left humerus x-ray does not reveal acute abnormality CT interpreted by me (1pt min.). @ -None done U/S interpreted by me (1pt. min.). @ -None done What testing was considered but not performed or refused? (CT, X-rays, U/S, labs)? Why? @ -None What meds were considered but not given or refused? Why? @ -Considered musculoskeletal ultrasound however ultrasound is unable to provide this test Did you discuss the management of the patient with other professionals (professionals i.e. , PA, RADIOTELEGRAPH OPERATOR, lab, RT, psych nurse, social staff worker, travel sales consultant, teacher, donor relations officer, bilingual case manager)? Give summary @ -No Was smoking cessation discussed for >3mins.? @ -No Was critical care preformed (if so, how long)? @ -No Were there social determinants of health that impacted care today? How? (Homelessness, low income, unemployed, alcoholism, drug addiction, transportation, low edu. Level, literacy, decrease access to med. care, half-way, rehab)? @ -No Was there de-escalation of care discussed even if they declined (Discuss DNR or withdrawal of care, Hospice)? DNR status @ -No What co-morbidities impacted this encounter? (DM, HTN, Smoking, COPD, CAD, Cancer, CVA, ARF, Chemo, Hep., AIDS, mental health diagnosis, sleep apnea, morbid obesity)? @ -None Was patient admitted / discharged? Hospital course, mention meds given and route, prescriptions, significant lab abnormalities, going to OR and other pertinent info. @ -Patient presents with probable biceps tear. X-ray unremarkable. Unable to have ultrasound done. Patient will be discharged with sling and orthopedic follow-up. Patient updated. Undiagnosed new problem with uncertain prognosis? @ -No Drug Therapy requiring intensive monitoring for toxicity (Heparin, Nitro, Insulin, Cardizem)? @ -No Were any procedures done? @ -No Diagnosis/symptom? @ -Left bicep tear Acute, or Chronic, or Acute on Chronic? @ -Acute Uncomplicated (without systemic symptoms) or Complicated (systemic symptoms)? @ -Default Side effects of treatment? @ -No Exacerbation, Progression, or Severe Exacerbation? @ -No Poses a threat to life or bodily function? How? (Chest pain, [place], [place], pneumonia, PE, COPD, DKA, ARF, appy, cholecystitis, CVA, Diverticulitis, Homicidal, Suicidal, threat to staff... and all critical care pts) @ -Threat to musculoskeletal function Disposition Clinical Impression: Biceps tendon tear Disposition: HOME SELF-CARE Condition: Stable Instructions (If sedation given, give patient instructions): Tendon Rupture (ED) Additional Instructions: Use sling. Please do follow-up with orthopedics in the next couple of days for recheck. Return for increased pain, swelling, arm problems, worsening symptoms or any other concerns. You will need further evaluation for this and possibly surgical care. Is patient prescribed a controlled substance at d/c from ED?: No Referrals: [facility],Clinic [Primary Care Provider] - 1-2 days Barb Fernández DO [Doctor of Osteopathic Medicine] - 1-2 days Time of Disposition: 14:03
--- NOTE | 2024-05-18 13:32 | XR ---
EXAMINATION TYPE: XR humerus LT DATE OF EXAM: 05/18/2024 CLINICAL HISTORY: pain TECHNIQUE: Frontal and lateral images of the left humerus are obtained. COMPARISON: None. FINDINGS: There is no acute fracture/dislocation evident. The joint spaces appear within normal limi ts. The overlying soft tissue appears unremarkable. IMPRESSION: There is no acute fracture or dislocation. ICD 10 NO FRACTURE, INITIAL EVALUATION [facility], , 05/18/2024 1:30 PM
[2024-05-18 14:16] VITALS: BP 111/69; PULSE 60; RESP 18
== END 2024-05-18 14:17 | disposition home or self-care (01) ==
LOC: EC 11:15
CPT/HCPCS: 90471; 99283

== ENCOUNTER 2024-07-22 21:39 | Emergency (ER) | payer OTHER, MEDICARE ==
--- NOTE | 2024-07-22 22:00 | ED ---
General Adult HPI - General Chief complaint: Recheck/Abnormal Lab/Rx Stated complaint: Abnormal Labs Time Seen by Provider: 07/22/24 21:46 Source: patient Mode of arrival: ambulatory Limitations: no limitations - History of Present Illness Initial comments: Dictation was produced using [employer] dictation software. please excuse any grammatical, word or spelling errors. Chief Complaint: 69-year-old male presents with supratherapeutic INR History of Present Illness: Patient 69-year-old male he takes INR for what he describes as heart ablation and pacemaker. States that he had his blood drawn at the [facility] and was told to come to the ER for INR 5.6. Patient has no complaints. Denies any bleeding. No headache. No nausea vomiting or lightheadedness. Patient takes 10 mg of Coumadin daily. Chart review shows patient takes Coumadin for paroxysmal A-fib The ROS documented in this emergency department record has been reviewed and confirmed by me. Those systems with pertinent positive or negative responses have been documented in the HPI. All other systems are other negative and/or noncontributory. - Related Data Home Medications Medication Instructions Recorded Confirmed Acetaminophen-Codeine 300-30mg 2 tab PO Q6H PRN 11/21/15 09/12/23 [Tylenol w/codeine #3] Atorvastatin Calcium [Lipitor] 20 mg PO HS 06/19/17 09/12/23 Albuterol Sulfate [Proair Hfa] 2 puff INHALATION RT-Q6H PRN 08/25/18 09/12/23 Cyclobenzaprine [Flexeril] 10 mg PO TID 08/25/18 09/12/23 Cholecalciferol [Vitamin D3 (25 50 mcg PO DAILY 08/15/22 09/12/23 Mcg = 1000 Iu)] Valsartan 320 mg PO DAILY 08/15/22 09/12/23 Nitroglycerin 0.4 mg SL Q5M PRN 08/16/22 09/12/23 Metoprolol Succinate [Metoprolol 25 mg PO DAILY 09/12/23 09/12/23 Succinate ER] Warfarin [Coumadin] 10 mg PO HS 09/12/23 09/12/23 Previous Rx's Medication Instructions Recorded amLODIPine [Norvasc] 10 mg PO DAILY #30 tab 08/26/18 Allergies Allergy/AdvReac Type Severity Reaction Status Date / Time NSAIDS (Non-Steroidal Allergy Unknown Unknown Verified 07/22/24 21:44 Anti-Inflamma Androgenic Anabolic Steroid Allergy Unknown Verified 07/22/24 21:44 aspirin Allergy Stomach Verified 07/22/24 21:44 Pain azithromycin Allergy Unknown Verified 07/22/24 21:44 [From Zithromax Z-Boaz] ibuprofen [From Motrin] Allergy Unknown Verified 07/22/24 21:44 niacin Allergy Unknown Verified 07/22/24 21:44 dopamine AdvReac Severe Dyspnea Verified 07/22/24 21:44 Review of Systems ROS Statement: Those systems with pertinent positive or pertinent negative responses have been documented in the HPI. ROS Other: All systems not noted in ROS Statement are negative. Past Medical History Past Medical History: Asthma, Diabetes Mellitus, Hyperlipidemia, Hypertension Additional Past Medical History / Comment(s): NEUROPATHY History of Any Multi-Drug Resistant Organisms: None Reported Past Surgical History: Back Surgery, Cardiac Ablation, Ear Surgery, Orthopedic Surgery, Pacemaker, Tonsillectomy Additional Past Surgical History / Comment(s): knee surgery, Past Anesthesia/Blood Transfusion Reactions: No Reported Reaction Past Psychological History: Anxiety Smoking Status: Current every day smoker Past Alcohol Use History: None Reported Past Drug Use History: None Reported - Past Family History Mother Family Medical History: Cancer Additional Family Medical History / Comment(s): LUNG CANCER Father Family Medical History: Cancer Additional Family Medical History / Comment(s): LUNG CANCER General Exam - General Exam Comments Initial Comments: General: Well-appearing, nontoxic, no acute distress. Head: Normocephalic, atraumatic Eyes: PERRLA, EOMI ENT: Airway patent Chest: Nonlabored breathing Skin: No visual rash, normal skin tone Neuro: Alert and oriented 3 Musculoskeletal: No gross abnormalities Limitations: no limitations Course Vital Signs 07/22/24 21:40 Temperature 98.5 F Pulse Rate 79 Respiratory 17 Rate Blood Pressure 124/83 O2 Sat by Pulse 97 Oximetry - Reevaluation(s) Reevaluation #1: 07/22/24 22:00 Cardiology consult note from September of this year shows that patient is on Coumadin for paroxysmal A-fib. Medical Decision Making - Medical Decision Making Was pt. sent in by a medical professional or institution (, PA, ANALYTIC MANAGER, urgent care, hospital, or retirement...) When possible be specific @ -No Did you speak to anyone other than the patient for history (EMS, parent, family, police, friend...)? What history was obtained from this source @ -No Did you review nursing and triage notes (agree or disagree)? Why? @ -I reviewed and agree with nursing and triage notes Were old charts reviewed (outside hosp., previous admission, EMS record, old EKG, old radiological studies, urgent care reports/EKG's, retirement records)? Report findings @ -No old charts were reviewed Differential Diagnosis (chest pain, altered mental status, abdominal pain women, abdominal pain men, vaginal bleeding, musculoskeletal, weakness, fever, dyspnea, syncope, headache, dizziness, GI bleed, back pain, seizure, CVA, palpatations, mental health)? @ -Not applicable EKG interpreted by me (3pts min.). @ -None done X-rays interpreted by me (1pt min.). @ -None done CT interpreted by me (1pt min.). @ -None done U/S interpreted by me (1pt. min.). @ -None done What testing was considered but not performed or refused? (CT, X-rays, U/S, labs)? Why? @ -None What meds were considered but not given or refused? Why? @ -None Was smoking cessation discussed for >3mins.? @ -No Were there social determinants of health that impacted care today? How? (Homelessness, low income, unemployed, alcoholism, drug addiction, transportation, low edu. Level, literacy, decrease access to med. care, snf, rehab)? @ -No Was there de-escalation of care discussed even if they declined (Discuss DNR or withdrawal of care, Hospice)? DNR status @ -No What co-morbidities impacted this encounter? (DM, HTN, Smoking, COPD, CAD, Cancer, CVA, ARF, Chemo, Hep., AIDS, mental health diagnosis, sleep apnea, morbid obesity)? @ -None Was patient admitted / discharged? Hospital course, mention meds given and route, prescriptions, significant lab abnormalities, going to OR and other pertinent info. @ -69-year-old male presents to the emergency department for supratherapeutic INR. Labs obtained here with INR of 6.6. Patient well-appearing with stable vitals. Has no complaints of bleeding. Denies any pain complaints. No suspicion for intracranial bleed versus retroperitoneal hemorrhage. Patient told to withhold his Coumadin dose today and tomorrow and resume in a couple days. Advised follow-up with primary care doctor. Did you discuss the management of the patient with other professionals (professionals i.e. , PA, ANALYTIC MANAGER, lab, RT, psych nurse, manager social services, white washer piler, teacher, protocol officer, business case analyst)? Give summary @ -No Was critical care preformed (if so, how long)? @ -No Undiagnosed new problem with uncertain prognosis? @ -No Drug Therapy requiring intensive monitoring for toxicity (Heparin, Nitro, Insulin, Cardizem)? @ -No Were any procedures done? @ -No Diagnosis/symptom? Acute, or Chronic, or Acute on Chronic? Uncomplicated (without systemic symptoms) or Complicated (systemic symptoms)? @ -Supratherapeutic INR Side effects of treatment? @ -No Exacerbation, Progression, or Severe Exacerbation? @ -No Poses a threat to life or bodily function? How? (Chest pain, [place], [place], pneumonia, PE, COPD, DKA, ARF, appy, cholecystitis, CVA, Diverticulitis, Homicidal, Suicidal, threat to staff... and all critical care pts) @ -No - Lab Data Lab Results 07/22/24 Range/Units 22:40 PT 65.8 H (10.0-12.5) sec INR 6.6 H* (<1.2) APTT 38.8 H (22.0-30.0) sec Disposition Clinical Impression: Supratherapeutic INR Disposition: HOME SELF-CARE Condition: Good Instructions (If sedation given, give patient instructions): Warfarin (By mouth) Additional Instructions: hold your next 2 doses Is patient prescribed a controlled substance at d/c from ED?: No Referrals: [facility],Clinic [Primary Care Provider] - 1-2 days Time of Disposition: 23:47
[2024-07-22 23:24] LABS: Partial Thromboplastin Time 38.8 sec (22.0-30.0); Prothrombin Time 65.8 sec (10.0-12.5)
[2024-07-22 23:34] LABS: INR 6.6 (<1.2)
[2024-07-23 00:06] VITALS: BP 126/88; PULSE 80; RESP 19; TEMP 98.3
== END 2024-07-23 00:10 | disposition home or self-care (01) ==
LOC: EC 21:39
DX: R79.1 Abnormal coagulation profile (principal); F17.200 Nicotine dependence, unspecified, uncomplicated; Z88.6 Allergy status to analgesic agent; Z88.1 Allergy status to other antibiotic agents; Z88.8 Allergy status to other drugs, medicaments and biological substances
CPT/HCPCS: 36415; 85610; 85730; 99283

== ENCOUNTER 2025-01-19 11:50 | Inpatient (IN) | payer OTHER, MEDICARE ==
[2025-01-19 12:46] LABS: Basophils # (A) 0.06 10*3/uL (0.00-0.10); Basophils % (A) 1.2 %; Eosinophils # (A) 0.16 10*3/uL (0.04-0.35); Eosinophils % (A) 3.2 %; HGB 12.8 g/dL (13.0-17.0); Lymphocytes # (A) 1.23 10*3/uL (0.90-5.00); Lymphocytes % (A) 24.5 %; MCH 30.5 pg (27.0-32.0); MCHC 32.8 g/dL (32.0-37.0); MCV 93.1 fL (80.0-97.0); Mean Platelet Volume 11.1 fL (9.5-12.2); Monocytes # (A) 0.42 10*3/uL (0.20-1.00); Monocytes % (A) 8.3 %; Neutrophils # (A) 3.15 10*3/uL (1.80-7.70); Neutrophils % (A) 62.6 %; Platelet Count 194 10*3/uL (140-440); RBC 4.19 10*6/uL (4.40-5.60); RDW 13.2 % (11.5-14.5); WBC 5.03 10*3/uL (4.50-10.00)
--- NOTE | 2025-01-19 12:47 | ED ---
General Adult HPI - General Chief complaint: Recheck/Abnormal Lab/Rx Stated complaint: Pacemaker issue Time Seen by Provider: 01/19/25 12:06 Source: patient, RN notes reviewed, old records reviewed Mode of arrival: wheelchair Limitations: no limitations - History of Present Illness Initial comments: 69-year-old male presenting from outpatient setting for evaluation of possible pacemaker dysfunction and dyspnea with lower extremity edema. Patient has history of congestive heart failure. He apparently received an x-ray which showed there was possible lead detachment of his pacemaker. No central chest pain. No fever. - Related Data Home Medications Medication Instructions Recorded Confirmed Acetaminophen-Codeine 300-30mg 2 tab PO Q6H PRN 11/21/15 09/12/23 [Tylenol w/codeine #3] Atorvastatin Calcium [Lipitor] 20 mg PO HS 06/19/17 09/12/23 Albuterol Sulfate [Proair Hfa] 2 puff INHALATION RT-Q6H PRN 08/25/18 09/12/23 Cyclobenzaprine [Flexeril] 10 mg PO TID 08/25/18 09/12/23 Cholecalciferol [Vitamin D3 (25 50 mcg PO DAILY 08/15/22 09/12/23 Mcg = 1000 Iu)] Valsartan 320 mg PO DAILY 08/15/22 09/12/23 Nitroglycerin 0.4 mg SL Q5M PRN 08/16/22 09/12/23 Metoprolol Succinate [Metoprolol 25 mg PO DAILY 09/12/23 09/12/23 Succinate ER] Warfarin [Coumadin] 10 mg PO HS 09/12/23 09/12/23 Previous Rx's Medication Instructions Recorded amLODIPine [Norvasc] 10 mg PO DAILY #30 tab 08/26/18 Allergies Allergy/AdvReac Type Severity Reaction Status Date / Time NSAIDS (Non-Steroidal Allergy Unknown Unknown Verified 01/19/25 11:55 Anti-Inflamma Androgenic Anabolic Steroid Allergy Unknown Verified 01/19/25 11:55 aspirin Allergy Stomach Verified 01/19/25 11:55 Pain azithromycin Allergy Unknown Verified 01/19/25 11:55 [From Zithromax Z-Boaz] ibuprofen [From Motrin] Allergy Unknown Verified 01/19/25 11:55 niacin Allergy Unknown Verified 01/19/25 11:55 dopamine AdvReac Severe Dyspnea Verified 01/19/25 11:55 Review of Systems ROS Statement: Those systems with pertinent positive or pertinent negative responses have been documented in the HPI. ROS Other: All systems not noted in ROS Statement are negative. Past Medical History Past Medical History: Asthma, Diabetes Mellitus, Hyperlipidemia, Hypertension Additional Past Medical History / Comment(s): NEUROPATHY History of Any Multi-Drug Resistant Organisms: None Reported Past Surgical History: Back Surgery, Cardiac Ablation, Ear Surgery, Orthopedic Surgery, Pacemaker, Tonsillectomy Additional Past Surgical History / Comment(s): knee surgery, Past Anesthesia/Blood Transfusion Reactions: No Reported Reaction Past Psychological History: Anxiety Smoking Status: Current every day smoker Past Alcohol Use History: None Reported Past Drug Use History: None Reported - Past Family History Mother Family Medical History: Cancer Additional Family Medical History / Comment(s): LUNG CANCER Father Family Medical History: Cancer Additional Family Medical History / Comment(s): LUNG CANCER General Exam Limitations: no limitations General appearance: alert, in no apparent distress Head exam: Present: atraumatic Eye exam: Present: normal appearance, PERRL Neck exam: Present: normal inspection. Absent: tenderness, meningismus Respiratory exam: Present: rales, decreased breath sounds. Absent: respiratory distress Cardiovascular Exam: Present: regular rate, normal rhythm GI/Abdominal exam: Present: soft. Absent: distended, tenderness, guarding, rebound Extremities exam: Present: pedal edema Neurological exam: Present: alert, oriented X3, CN II-XII intact. Absent: motor sensory deficit Psychiatric exam: Present: normal affect, normal mood Skin exam: Present: warm, dry Course Vital Signs 01/19/25 11:51 Temperature 97.3 F L Pulse Rate 92 Respiratory 16 Rate Blood Pressure 108/74 O2 Sat by Pulse 92 L Oximetry Medical Decision Making - Medical Decision Making Was pt. sent in by a medical professional or institution (, PA, CQ DEVELOPER, urgent care, hospital, or prison...) When possible be specific @ -No Did you speak to anyone other than the patient for history (EMS, parent, family, police, friend...)? What history was obtained from this source @ -No Did you review nursing and triage notes (agree or disagree)? Why? @ -I reviewed and agree with nursing and triage notes Were old charts reviewed (outside hosp., previous admission, EMS record, old EKG, old radiological studies, urgent care reports/EKG's, prison records)? Report findings @ -No old charts were reviewed Differential Diagnosis (chest pain, altered mental status, abdominal pain women, abdominal pain men, vaginal bleeding, weakness, fever, dyspnea, syncope, headache, dizziness, GI bleed, back pain, seizure, CVA, palpatations, mental health, musculoskeletal)? @ -Not applicable EKG interpreted by me (3pts min.). @Ventricular paced rhythm rate of 70, QRS duration 184, QTc 477 X-rays interpreted by me (1pt min.). @Chest x-ray shows cardiomegaly, right sided pleural effusion, consistent with CHF. CT interpreted by me (1pt min.). @ -None done U/S interpreted by me (1pt. min.). @ -None done What testing was considered but not performed or refused? (CT, X-rays, U/S, labs)? Why? @ -None What meds were considered but not given or refused? Why? @ -None Did you discuss the management of the patient with other professionals (pro fessionals i.e. , PA, CQ DEVELOPER, lab, RT, psych nurse, social media executive, manager rfid, teacher, control systems drafting officer, medical case manager)? Give summary @[facility], will admit Was smoking cessation discussed for >3mins.? @ -No Was critical care preformed (if so, how long)? @ -No Were there social determinants of health that impacted care today? How? (Homelessness, low income, unemployed, alcoholism, drug addiction, transportation, low edu. Level, literacy, decrease access to med. care, fpc, rehab)? @ -No Was there de-escalation of care discussed even if they declined (Discuss DNR or withdrawal of care, Hospice)? DNR status @ -No What co-morbidities impacted this encounter? (DM, HTN, Smoking, COPD, CAD, Cancer, CVA, ARF, Chemo, Hep., AIDS, mental health diagnosis, sleep apnea, mor bid obesity)? @ -Pacemaker, CHF Was patient admitted / discharged? Hospital course, mention meds given and route, prescriptions, significant lab abnormalities, going to OR and other pertinent info. @ -69-year-old male presenting with dyspnea, lower extremity edema, and concern for pacemaker malfunction. Patient is in a paced rhythm on both a monitor and EKG. Chest x-ray is consistent with CHF. Patient has elevated BNP and a minimally elevated troponin likely secondary to CHF. He will be admitted for diuresis. He has not had a recent echo. Echo has been ordered cardiology will be placed on consult. Troponin will be trended. Undiagnosed new problem with uncertain prognosis? @ -No Drug Therapy requiring intensive monitoring for toxicity (Heparin, Nitro, Insulin, Cardizem)? @ -No Were any procedures done? @ -No Diagnosis/symptom? @ -CHF Acute, or Chronic, or Acute on Chronic? @Acute on chronic Uncomplicated (without systemic symptoms) or Complicated (systemic symptoms)? @ -Default Side effects of treatment? @ -No Exacerbation, Progression, or Severe Exacerbation? @ -No Poses a threat to life or bodily function? How? (Chest pain, [place], [place], pneumonia, PE, COPD, DKA, ARF, appy, cholecystitis, CVA, Diverticulitis, Homicidal, Suicidal, threat to staff... and all critical care pts) @ -Yes, CHF, arrhythmia, [place] - Lab Data Result diagrams: 01/19/25 12:32 01/19/25 12:32 Lab Results 01/19/25 01/19/25 01/19/25 Range/Units 12:32 12:32 12:32 WBC 5.03 (4.50-10.00) 10*3/uL RBC 4.19 L (4.40-5.60) 10*6/uL Hgb 12.8 L (13.0-17.0) g/dL Hct 39.0 L (39.6-50.0) % MCV 93.1 (80.0-97.0) fL MCH 30.5 (27.0-32.0) pg MCHC 32.8 (32.0-37.0) g/dL Plt Count 194 (140-440) 10*3/uL MPV 11.1 (9.5-12.2) fL Immature Gran % (Auto) 0.2 % Neutrophils % 62.6 % Lymphocytes % 24.5 % Monocytes % 8.3 % Eosinophils % 3.2 % Basophils % 1.2 % Immature Gran # 0.01 (0.00-0.04) 10*3/uL Neutrophils # 3.15 (1.80-7.70) 10*3/uL Lymphocytes # 1.23 (0.90-5.00) 10*3/uL Monocytes # 0.42 (0.20-1.00) 10*3/uL Eosinophils # 0.16 (0.04-0.35) 10*3/uL Basophils # 0.06 (0.00-0.10) 10*3/uL PT 40.1 H (10.0-12.5) sec INR 4.0 H (<1.2) APTT 36.3 H (22.0-30.0) sec Sodium 137 (137-145) mmol/L Potassium 4.2 (3.5-5.1) mmol/L Chloride 105 (98-107) mmol/L Carbon Dioxide 25 (22-30) mmol/L Anion Gap 7 mmol/L BUN 21 H (9-20) mg/dL Creatinine 0.88 (0.66-1.25) mg/dL Est GFR (CKD-EPI)AfAm >90 (>60 ml/min/1.73 sqM) Est GFR (CKD-EPI)NonAf 87 (>60 ml/min/1.73 sqM) Glucose 98 (74-99) mg/dL Plasma Lactic Acid Howie (0.7-2.0) mmol/L Calcium 8.9 (8.4-10.2) mg/dL Magnesium 1.8 (1.6-2.3) mg/dL Total Bilirubin 0.6 (0.2-1.3) mg/dL AST 19 (17-59) U/L ALT 17 (4-49) U/L Alkaline Phosphatase 116 (38-126) U/L Troponin I (0.000-0.034) ng/mL NT-Pro-B Natriuret Pep 2380 pg/mL Total Protein 6.4 (6.3-8.2) g/dL Albumin 3.6 (3.5-5.0) g/dL 01/19/25 01/19/25 Range/Units 12:32 12:32 WBC (4.50-10.00) 10*3/uL RBC (4.40-5.60) 10*6/uL Hgb (13.0-17.0) g/dL Hct (39.6-50.0) % MCV (80.0-97.0) fL MCH (27.0-32.0) pg MCHC (32.0-37.0) g/dL Plt Count (140-440) 10*3/uL MPV (9.5-12.2) fL Immature Gran % (Auto) % Neutrophils % % Lymphocytes % % Monocytes % % Eosinophils % % Basophils % % Immature Gran # (0.00-0.04) 10*3/uL Neutrophils # (1.80-7.70) 10*3/uL Lymphocytes # (0.90-5.00) 10*3/uL Monocytes # (0.20-1.00) 10*3/uL Eosinophils # (0.04-0.35) 10*3/uL Basophils # (0.00-0.10) 10*3/uL PT (10.0-12.5) sec INR (<1.2) APTT (22.0-30.0) sec Sodium (137-145) mmol/L Potassium (3.5-5.1) mmol/L Chloride (98-107) mmol/L Carbon Dioxide (22-30) mmol/L Anion Gap mmol/L BUN (9-20) mg/dL Creatinine (0.66-1.25) mg/dL Est GFR (CKD-EPI)AfAm (>60 ml/min/1.73 sqM) Est GFR (CKD-EPI)NonAf (>60 ml/min/1.73 sqM) Glucose (74-99) mg/dL Plasma Lactic Acid Howie 0.8 (0.7-2.0) mmol/L Calcium (8.4-10.2) mg/dL Magnesium (1.6-2.3) mg/dL Total Bilirubin (0.2-1.3) mg/dL AST (17-59) U/L ALT (4-49) U/L Alkaline Phosphatase (38-126) U/L Troponin I 0.065 H* (0.000-0.034) ng/mL NT-Pro-B Natriuret Pep pg/mL Total Protein (6.3-8.2) g/dL Albumin (3.5-5.0) g/dL Disposition Clinical Impression: CHF (congestive heart failure), Elevated troponin Disposition: ADMITTED IP TO THIS HOSP Condition: Stable Is patient prescribed a controlled substance at d/c from ED?: No Referrals: Titi Purvis DO [Primary Care Provider] - 1-2 days Time of Disposition: 14:10
--- NOTE | 2025-01-19 13:11 | XR ---
EXAMINATION TYPE: XR chest 2V DATE OF EXAM: 01/19/2025 1:05 PM COMPARISON: Chest radiographs from to 124 TECHNIQUE: XR chest 2V Frontal and lateral views of the chest. CLINICAL INDICATION:Male, 69 years old with history of difficulty breathing; FINDINGS: Lungs/Pleura: Mildly increased small to moderate size right pleural effusion with associated consolid ation. The left lung is clear. Pulmonary vascularity: Mild pulmonary vascular congestion. Heart/mediastinum: Cardiomediastinal silhouette is enlarged and stable. Two lead cardiac conduction d evice overlying the left hemithorax with lead tips projecting over the right ventricle and right atri um. Musculoskeletal: No acute osseous pathology. IMPRESSION: Cardiomegaly with pulmonary vascular congestion and small to moderate-sized right pleural effusion wi th associated consolidation. Correlate for CHF exacerbation and/or pneumonia. [facility], , 01/19/2025 1:08 PM
[2025-01-19 13:16] LABS: Partial Thromboplastin Time 36.3 sec (22.0-30.0); Prothrombin Time 40.1 sec (10.0-12.5)
[2025-01-19 13:20] LABS: ALT 17 U/L (4-49); AST 19 U/L (17-59); African American GFR (CKD) >90 (>60 ml/min/1.73 sqM); Albumin 3.6 g/dL (3.5-5.0); Alkaline Phosphatase 116 U/L (38-126); Anion Gap 7 mmol/L; Blood Urea Nitrogen 21 mg/dL (9-20); Calcium 8.9 mg/dL (8.4-10.2); Carbon Dioxide 25 mmol/L (22-30); Chloride 105 mmol/L (98-107); Glucose 98 mg/dL (74-99); Magnesium 1.8 mg/dL (1.6-2.3); Non-African American GFR(CKD) 87 (>60 ml/min/1.73 sqM); Potassium 4.2 mmol/L (3.5-5.1); Sodium 137 mmol/L (137-145); Total Bilirubin 0.6 mg/dL (0.2-1.3); Total Protein 6.4 g/dL (6.3-8.2)
[2025-01-19 13:28] LABS: NT-Pro-B-Type Natriuretic Pept 2380 pg/mL
[2025-01-19] MEDS ORDERED: NALOXONE 0.4 MG/ML 1 ML VIAL IV PRN (14:06)
[2025-01-19] MEDS ORDERED: ACETAMINOPHEN TAB 325 MG TAB PO PRN (14:06)
[2025-01-19] MEDS: FUROSEMIDE 10 MG/ML 4 ML VIAL IV STA (14:21)
[2025-01-19] MEDS ORDERED: ALBUTEROL NEBULIZED 2.5 MG/3 ML INHALATION PRN (14:39)
[2025-01-19] MEDS ORDERED: NITROGLYCERIN SL TABS 0.4 MG TAB SUBLINGUAL PRN (14:39)
[2025-01-19] MEDS: Acetaminophen-Codeine 300-30mg TAB PO PRN (15:43)
[2025-01-19] MEDS ORDERED: HYDROcodone/APAP 5-325MG 1 EACH TAB PO PRN (15:52)
--- NOTE | 2025-01-19 16:11 | P.HPIM ---
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 He presented to the emergency department sent by his PCP for concerns of possible pacemaker dysfunction. Patient reports he was recently evaluated by his PCP for reports of shortness of breath and bilateral lower extremity edema. He reports he underwent an x-ray at the office which was concerning for possible detached pacemaker lead and fluid volume overload and he was instructed to come to the ER for evaluation. Patient admits to continued shortness of breath worse with any exertion, nonproductive cough and increasing lower extremity edema over the past month. He denies having any fevers, chills, diaphoresis, headache, lightheade dness, dizziness, chest pain, palpitations, abdominal pain, nausea, vomiting, or experiencing any focal numbness/tingling/weakness in his extremities. Patient does report in addition to above complaints he also suffers from chronic back pain and left shoulder pain. Upon arrival to our facility, patient underwent evaluation in the emergency department. Vital signs upon arrival show blood pressure 108/74, heart rate 92, respiratory rate 16, temp 97.3 F, and SpO2 of 92% on room air. EKG completed showing a ventricular paced rhythm at 70 bpm. Chest x-ray showing cardiomegaly with pulmonary vascular congestion and small to moderate-sized right pleural effusion with associated consolidation consistent with CHF. Labs completed and reviewed. CBC showing normocytic anemia with hemoglobin of 12.8. Coagulation profile showing supratherapeutic INR 4.0. BMP unremarkable with exception of mild prerenal azotemia with BUN of 21. Blood glucose 98. Lactic acid 0.8. Magnesium 1.8. Calcium 8.9. Liver profile unremarkable. Troponin elevated at 0.065 and proBNP also elevated at 2380. Patient provided with IV Lasix and admitted under our services with consultation to cardiology. Review of systems: Pertinent positives and negatives as discussed in HPI, a complete review of systems was performed and all other systems are negative. Physical exam: Vital signs reviewed and stable. General: Nontoxic, no distress and appears stated age. Obese. Derm: Skin warm and dry, normal coloration for ethnicity. Head: Atraumatic, normocephalic and symmetric. Eyes: EOM's intact, no lid lag, and anicteric sclera Mouth: no lip lesions, mucus membranes moist Cardiovascular: regular rate and rhythm with normal S1S2, systolic murmur, positive posterior tibial pulses bilaterally, and cap refill < 2 seconds. Lungs: Respirations even, regular, and unlabored on room air. Lungs diminished at bases, no rhonchi, no rales, no wheezing, and no accessory muscle usage. Abdominal: soft, nontender to palpation, no guarding, no appreciable organ omegaly Ext: ROM intact. No gross muscle atrophy, 3+ pitting bilateral lower extremity edema, no contractures Neuro: Speech clear, face symmetrical and CN II-XII grossly intact with no noted focal neuro deficits Psych: Alert and oriented to person, place, time, and situation. Appropriate and pleasant affect. Assessment and Plan of Care: Acute on chronic diastolic heart failure Elevated troponin, likely secondary to above Supratherapeutic INR History of third-degree heart block status post dual-chamber pacemaker placement Paroxysmal atrial fibrillation Hypertension Hyperlipidemia -Cardiology consulted, appreciate recommendations -Telemetry monitoring -Trend troponins -ProBNP 2380 -Daily weights -Close monitoring of I's and O's -Cardiac diet -Lasix 40 mg IVP twice daily. Aspirin held secondary to reported allergy. -Continuation of daily medications including: Amlodipine 10 mg daily, atorvastatin 40 mg nightly, carvedilol 12.5 mg twice daily, and valsartan 320 mg daily. -Pharmacy to dose Coumadin with goal therapeutic range of 2-3. Currently supratherapeutic at 4.0. -Continued close monitoring of electrolytes while diuresing. -Echocardiogram to be completed. -Order placed for Albino wraps to bilateral lower extremities and to elevate when not in use Chronic lower back pain and left shoulder pain Continue Flexeril 10 mg 3 times daily, Tylenol 650 mg every 6 hours as needed for mild pain and Tylenol 3 with codeine 300-30 mg tablets (2 tablets) every 6 hours as needed for moderate pain. Maintain fall precautions. Data and imaging reviewed: As stated above in HPI The patient is admitted with an anticipated greater than 2 midnight stay for evaluation of acute on chronic diastolic heart failure exacerbation and elevated troponin. CODE STATUS: Full Code DVT prophylaxis: Coumadin Discussed with: Patient, patient's daughter at bedside, RN, and ED physician Anticipated discharge date: Pending clinical course Anticipated discharge place: Home Patient was seen independently by Nurse Practitioner. This document was prepared using [employer] dictation software. Please allow for errors in supervisor blood while rare they do occur. Major Luo NP rendered care for this patient independently, reviewed the findings and plan as documented in the note above and agree with plan. I did not physically speak with or examine the patient on this date. Past Medical History Past Medical History: Asthma, Diabetes Mellitus, Hyperlipidemia, Hypertension Additional Past Medical History / Comment(s): NEUROPATHY History of Any Multi-Drug Resistant Organisms: None Reported Past Surgical History: Back Surgery, Cardiac Ablation, Ear Surgery, Orthopedic Surgery, Pacemaker, Tonsillectomy Additional Past Surgical History / Comment(s): knee surgery, Past Anesthesia/Blood Transfusion Reactions: No Reported Reaction Past Psychological History: Anxiety Smoking Status: Current every day smoker Past Alcohol Use History: None Reported Past Drug Use History: None Reported - Past Family History Mother Family Medical History: Cancer Additional Family Medical History / Comment(s): LUNG CANCER Father Family Medical History: Cancer Additional Family Medical History / Comment(s): LUNG CANCER Medications and Allergies Home Medications Medication Instructions Recorded Confirmed Type Acetaminophen-Codeine 300-30mg 2 tab PO Q6H PRN 11/21/15 09/12/23 History [Tylenol w/codeine #3] Atorvastatin Calcium [Lipitor] 20 mg PO HS 06/19/17 09/12/23 History Albuterol Sulfate [Proair Hfa] 2 puff INHALATION RT-Q6H PRN 08/25/18 09/12/23 History Cyclobenzaprine [Flexeril] 10 mg PO TID 08/25/18 09/12/23 History amLODIPine [Norvasc] 10 mg PO DAILY #30 tab 08/26/18 09/12/23 Rx Cholecalciferol [Vitamin D3 (25 50 mcg PO DAILY 08/15/22 09/12/23 History Mcg = 1000 Iu)] Valsartan 320 mg PO DAILY 08/15/22 09/12/23 History Nitroglycerin 0.4 mg SL Q5M PRN 08/16/22 09/12/23 History Metoprolol Succinate [Metoprolol 25 mg PO DAILY 09/12/23 09/12/23 History Succinate ER] Warfarin [Coumadin] 10 mg PO HS 09/12/23 09/12/23 History Allergies Allergy/AdvReac Type Severity Reaction Status Date / Time NSAIDS (Non-Steroidal Allergy Unknown Per [facility] Verified 01/19/25 15:43 Anti-Inflamma Androgenic Anabolic Steroid Allergy Unknown Verified 01/19/25 15:43 aspirin Allergy Stomach Verified 01/19/25 15:43 Pain azithromycin Allergy Unknown Verified 01/19/25 15:43 [From Zithromax Z-Boaz] enalapril Allergy Per [facility] Verified 01/19/25 15:43 ibuprofen [From Motrin] Allergy Unknown Verified 01/19/25 15:43 latex Allergy Per [facility] Verified 01/19/25 15:43 lidocaine [From Lidoderm] Allergy Rash/Hives Verified 01/19/25 15:43 dopamine AdvReac Severe Dyspnea Verified 01/19/25 15:43 lovastatin AdvReac Diarrhea Verified 01/19/25 15:43 niacin AdvReac flushing Verified 01/19/25 15:43 prednisone AdvReac "feeling Verified 01/19/25 15:43 irritable" rosuvastatin [From Crestor] AdvReac Diarrhea Verified 01/19/25 15:43 Physical Exam Vitals: Vital Signs Temp Pulse Resp BP Pulse Ox 01/19/25 11:51 97.3 F L 92 16 108/74 92 L Intake and Output 01/18/25 01/19/25 01/19/25 22:59 06:59 14:59 Other: Weight 134.263 kg Results CBC & Chem 7: 01/19/25 12:32 01/19/25 12:32 Labs: Abnormal Lab Results - Last 24 Hours (Table) 01/19/25 01/19/25 01/19/25 Range/Units 12:32 12:32 12:32 RBC 4.19 L (4.40-5.60) 10*6/uL Hgb 12.8 L (13.0-17.0) g/dL Hct 39.0 L (39.6-50.0) % PT 40.1 H (10.0-12.5) sec INR 4.0 H (<1.2) APTT 36.3 H (22.0-30.0) sec BUN 21 H (9-20) mg/dL Troponin I (0.000-0.034) ng/mL 01/19/25 Range/Units 12:32 RBC (4.40-5.60) 10*6/uL Hgb (13.0-17.0) g/dL Hct (39.6-50.0) % PT (10.0-12.5) sec INR (<1.2) APTT (22.0-30.0) sec BUN (9-20) mg/dL Troponin I 0.065 H* (0.000-0.034) ng/mL
[2025-01-19] MEDS: CYCLOBENZAPRINE 5 MG TAB PO STA (16:25)
[2025-01-19] MEDS: carvediloL 12.5 MG TAB PO SCH (16:38)
[2025-01-19] MEDS: WARFARIN 0.5 MG TAB PO ONE (19:25)
[2025-01-19] MEDS ORDERED: ATORVASTATIN 20 MG TAB PO SCH (21:00)
[2025-01-19] MEDS: ATORVASTATIN 40 MG TAB PO SCH (21:24)
[2025-01-19] MEDS: FUROSEMIDE 10 MG/ML 4 ML VIAL IV SCH (21:30)
[2025-01-19] MEDS: CYCLOBENZAPRINE 10 MG TAB PO SCH (22:26)
[2025-01-20 06:58] LABS: INR 3.8 (<1.2); Prothrombin Time 37.5 sec (10.0-12.5)
[2025-01-20] MEDS ORDERED: METOPROLOL SUCCINATE (ER) 25 MG TAB.ER.24H PO SCH (09:00)
[2025-01-20] MEDS ORDERED: amLODIPine 10 MG TAB PO SCH (09:00)
[2025-01-20] MEDS: CHOLECALCIFEROL 25 MCG (1000 IU) TABLET PO SCH (09:45)
[2025-01-20] MEDS: DAPAGLIFLOZIN PROPANEDIOL 10 MG TABLET PO SCH (10:07)
[2025-01-20 10:27] LABS: MCH 29.9 pg (27.0-32.0); MCHC 31.7 g/dL (32.0-37.0); MCV 94.3 FL (80.0-97.0); Mean Platelet Volume 11.2 FL (9.5-12.2); NRBC Per 100 WBC 0 X 10*3/uL (0.00-0.01); Platelet Count 227 X 10*3/uL (140-440); RBC 4.35 X 10*6/uL (4.40-5.60); RDW 13.1 % (11.5-14.5); WBC 6.69 X 10*3/uL (4.50-10.00)
[2025-01-20 10:48] LABS: BUN/Creat Ratio 21.67 Ratio (12.00-20.00); Blood Urea Nitrogen 19.5 mg/dL (9.0-27.0); Calcium 8.8 mg/dL (8.7-10.3); Carbon Dioxide 25.5 mmol/L (21.6-31.8); Chloride 111 mmol/L (96-109); Glucose 85 mg/dL (70-110); Magnesium 1.8 mg/dL (1.5-2.4); Potassium 4.6 mmol/L (3.5-5.5); Sodium 149 mmol/L (135-145)
--- NOTE | 2025-01-20 11:02 | P.CRDCN ---
History of Present Illness Consult date: 01/20/25 Requesting physician: Quang Franco Reason for Consult (text): CHF Chief complaint: shortness of breath, edema History of present illness: This is a pleasant 69-year-old gentleman patient of Dr. Saucedo with past medical history of sick sinus syndrome status post dual-chamber pacemaker, right bundle branch block, paroxysmal atrial fibrillation, hypertension, diabetes, and chronically elevated troponins noted in the past. Initially presented at the advice of clinic after chest x-ray showed possibility of pacemaker lead displacement. Patient has been feeling more short of breath with worsening lower extremity edema over the last 10 days. EKG on admission showed underlying atrial fibrillation with ventricular paced rhythm with no evidence of pacemaker malfunction. Diagnostics -EKG: A-fib with ventricular paced rhythm -Chest x-ray: Cardiomegaly with pulmonary vascular congestion and small to moderate-sized right pleural effusion with associated consolidation. Correlate for CHF exacerbation and/or pneumonia -Laboratory studies: 12.8, INR 4.0, potassium 4.2, BUN 21, creatinine 0.88, 0.065, 0.059 and 0.056, NT proBNP 2380 -Home cardiac medications: None, atorvastatin 40 mg p.o. nightly, carvedilol 12.5 mg p.o. twice daily, amlodipine 10 mg p.o. daily, valsartan 320 mg p.o. daily -Prior stress test: Dobutamine stress echo 09/2023 diagnostic patient not able to achieve 85% predicted maximum heart rate, examination of wall motion abnormality on echo challenging due to severe LVH and atypical septal motion due to RV paced rhythm -Echocardiogram: September 2023 LVH normal LV systolic function -Cardiac catheterization: June 2017 normal coronary arteries Review Of Systems: At the time of my exam: CONSTITUTIONAL: Denies fever or chills. HEENT: Denies blurred vision, vision changes. CARDIOVASCULAR: Denies chest pain. Mild orthopnea. Denies PND. Denies palpitations, dizziness, or syncope. RESPIRATORY: progressively worsening shortness of breath, mild wheezing, and nonproductive cough. Denies hemoptysis. GASTROINTESTINAL: Denies abdominal pain. Denies nausea or vomiting. Denies bleeding. HEMATOLOGIC: Denies bleeding disorders. GENITOURINARY: Denies hematuria. SKIN: Denies puritis. Denies rash. PHYSICAL EXAMINATION: This is a 69-year-old male in no apparent distress at the time of my examination. VITAL SIGNS: Reviewed. HEENT: Head is atraumatic, normocephalic. Pupils are equal, round. Sclerae anicteric. Conjunctivae are clear. Mucous membranes of the mouth are moist. Neck is supple. There is no elevated jugular venous pressure. No carotid bruit is heard. CHEST EXAMINATION: Diminished air entry right lower lobe with faint bibasilar crackles. No wheezes or rhonchi. Respirations even and nonlabored. HEART EXAMINATION: Heart regular, positive S1 and S2. No S3. No S4. Systolic murmur. ABDOMEN: Soft, nontender. Bowel sounds are heard. No organomegaly noted. EXTREMITIES: palpable peripheral pulses with evidence of moderate peripheral edema left greater than right and no calf tenderness noted. NEUROLOGIC EXAMINATION: Patient is awake, alert and oriented x3. Assessment: 1. Acute on chronic heart failure, likely diastolic, recent echocardiogram showed normal LV systolic function 2. Paroxysmal atrial fibrillation, currently in A-fib anticoagulated on warfarin with supratherapeutic INR 3. Sick sinus syndrome, status post dual-chamber pacemaker 4. Elevated troponin, chronic, likely secondary to LVH 5. Hypertension Plan: From cardiology's perspective we will interrogate the pacemaker as there appears to be no pacemaker malfunction. Continue IV Lasix. We will discontinue amlodipine. We will add Farxiga. We will obtain records from the office. Acute exacerbation of heart failure could be related to the atrial fibrillation. Will continue to follow the patient and provide further recommendations accordingly. Thank you kindly for this consultation. Nurse practitioner note has been reviewed, I agree with documented findings and plan of care. Patient was seen and examined. Past Medical History Past Medical History: Asthma, Diabetes Mellitus, Hyperlipidemia, Hypertension Additional Past Medical History / Comment(s): NEUROPATHY History of Any Multi-Drug Resistant Organisms: None Reported Past Surgical History: Back Surgery, Cardiac Ablation, Ear Surgery, Orthopedic Surgery, Pacemaker, Tonsillectomy Additional Past Surgical History / Comment(s): knee surgery, Past Anesthesia/Blood Transfusion Reactions: No Reported Reaction Type of Cardiac Device: Permanent Pacemaker Device Placement Date:: August 2022 Past Psychological History: Anxiety Additional Psychological History / Comment(s): Pt resides with his daughter, son-in-law and grandchildren. He is independent. He ambulates with a cane. He was in the [employer]. He is a NIDDM type II but does not have a glucometer. Smoking Status: Former smoker Past Alcohol Use History: Occasional Additional Past Alcohol Use History / Comment(s): Quit smoking August 12, 2022. Past Drug Use History: Marijuana Additional Drug Use History / Comment(s): Smoked some marijuana as a teen, none since - Past Family History Mother Family Medical History: Cancer Additional Family Medical History / Comment(s): LUNG CANCER Father Family Medical History: Cancer Additional Family Medical History / Comment(s): LUNG CANCER Medications and Allergies Home Medications Medication Instructions Recorded Confirmed Type Acetaminophen-Codeine 300-30mg 2 tab PO Q6H PRN 11/21/15 01/19/25 History [Tylenol w/codeine #3] Cyclobenzaprine [Flexeril] 10 mg PO TID 08/25/18 01/19/25 History amLODIPine [Norvasc] 10 mg PO DAILY #30 tab 08/26/18 01/19/25 Rx Cholecalciferol [Vitamin D3 (25 50 mcg PO DAILY 08/15/22 01/19/25 History Mcg = 1000 Iu)] Valsartan 320 mg PO DAILY 08/15/22 01/19/25 History Nitroglycerin 0.4 mg SL Q5M PRN 08/16/22 01/19/25 History Warfarin [Coumadin] 10 mg PO WESA@209909/12/23 01/19/25 History Atorvastatin [Lipitor] 40 mg PO HS 01/19/25 01/19/25 History Diclofenac Sodium Gel [Voltaren 1% 1 applic TOPICAL TID PRN 01/19/25 01/19/25 History Gel] Naloxone HCl [Narcan] 4 mg NASAL ONCE PRN 01/19/25 01/19/25 History Warfarin [Coumadin] 7.5 mg PO SUMOTUTHFR@209901/19/25 01/19/25 History carvediloL [Coreg] 12.5 mg PO BID-W/MEALS 01/19/25 01/19/25 History Allergies Allergy/AdvReac Type Severity Reaction Status Date / Time NSAIDS (Non-Steroidal Allergy Unknown Per [facility] Verified 01/19/25 15:43 Anti-Inflamma Androgenic Anabolic Steroid Allergy Unknown Verified 01/19/25 15:43 aspirin Allergy Stomach Verified 01/19/25 15:43 Pain azithromycin Allergy Unknown Verified 01/19/25 15:43 [From Zithromax Z-Boaz] enalapril Allergy Per [facility] Verified 01/19/25 15:43 ibuprofen [From Motrin] Allergy Unknown Verified 01/19/25 15:43 latex Allergy Per [facility] Verified 01/19/25 15:43 lidocaine [From Lidoderm] Allergy Rash/Hives Verified 01/19/25 15:43 dopamine AdvReac Severe Dyspnea Verified 01/19/25 15:43 lovastatin AdvReac Diarrhea Verified 01/19/25 15:43 niacin AdvReac flushing Verified 01/19/25 15:43 prednisone AdvReac "feeling Verified 01/19/25 15:43 irritable" rosuvastatin [From Crestor] AdvReac Diarrhea Verified 01/19/25 15:43 Physical Exam Vitals: Vital Signs Temp Pulse Pulse Resp BP BP Pulse Ox 01/20/25 07:36 97.6 F 62 18 112/68 96 01/20/25 06:31 114/76 01/20/25 01:52 97.7 F 62 18 93/57 93 L 01/19/25 20:00 97.7 F 52 L 17 121/68 99 01/19/25 18:45 98.2 F 62 18 103/71 96 01/19/25 16:37 61 18 101/64 97 01/19/25 15:44 65 18 99/70 95 01/19/25 11:51 97.3 F L 92 16 108/74 92 L Intake and Output 01/19/25 01/20/25 01/20/25 22:59 06:59 14:59 Other: Weight 134.263 kg 133.5 kg Results 01/20/25 05:53 01/19/25 12:32 Cardiac Enzymes 01/19/25 01/19/25 01/19/25 Range/Units 12:32 12:32 15:52 AST 19 (17-59) U/L Troponin I 0.065 H* 0.059 H* (0.000-0.034) ng/mL 01/19/25 Range/Units 17:49 AST (17-59) U/L Troponin I 0.056 H* (0.000-0.034) ng/mL Coagulation 01/19/25 01/20/25 Range/Units 12:32 05:53 PT 40.1 H 37.5 H (10.0-12.5) sec APTT 36.3 H (22.0-30.0) sec CBC 01/19/25 01/20/25 Range/Units 12:32 05:53 WBC 5.03 6.69 (4.50-10.00) 10*3/uL RBC 4.19 L 4.35 L (4.40-5.60) 10*6/uL Hgb 12.8 L 13.0 (13.0-17.0) g/dL Hct 39.0 L 41.0 (39.6-50.0) % Plt Count 194 227 (140-440) 10*3/uL Comprehensive Metabolic Panel 01/19/25 Range/Units 12:32 Sodium 137 (137-145) mmol/L Potassium 4.2 (3.5-5.1) mmol/L Chloride 105 (98-107) mmol/L Carbon Dioxide 25 (22-30) mmol/L BUN 21 H (9-20) mg/dL Creatinine 0.88 (0.66-1.25) mg/dL Glucose 98 (74-99) mg/dL Calcium 8.9 (8.4-10.2) mg/dL AST 19 (17-59) U/L ALT 17 (4-49) U/L Alkaline Phosphatase 116 (38-126) U/L Total Protein 6.4 (6.3-8.2) g/dL Albumin 3.6 (3.5-5.0) g/dL Current Medications Generic Name Dose Route Start Last Admin Trade Name Helioq PRN Reason Stop Dose Admin Acetaminophen 650 mg 01/19/25 14:06 Acetaminophen Tab 325 Mg Tab PO Q6HR PRN Mild Pain or Fever > 100.5 Acetaminophen/Codeine Phosphate 2 each 01/19/25 14:21 01/20/25 06:36 Acetaminophen-Codeine 300-30mg Tab PO 2 each Q6H PRN Administration Pain Albuterol Sulfate 2.5 mg 01/19/25 14:39 Albuterol Nebulized 2.5 Mg/3 Ml INHALATION RT-Q6H PRN Shortness Of Breath Atorvastatin Calcium 40 mg 01/19/25 21:00 01/19/25 21:24 Atorvastatin 40 Mg Tab PO 40 mg HS [place] Administration Carvedilol 12.5 mg 01/19/25 17:30 01/20/25 09:45 Carvedilol 12.5 Mg Tab PO 12.5 mg BID-W/MEALS [place] Administration Cholecalciferol 50 mcg 01/20/25 09:00 01/20/25 09:45 Cholecalciferol 25 Mcg (1000 Iu) Tablet PO 50 mcg DAILY [place] Administration Cyclobenzaprine HCl 10 mg 01/19/25 22:00 01/20/25 09:45 Cyclobenzaprine 10 Mg Tab PO 10 mg TID [place] Administration Dapagliflozin 10 mg 01/20/25 09:00 01/20/25 10:07 Dapagliflozin Propanediol 10 Mg Tablet PO 10 mg DAILY [place] Administration Furosemide 40 mg 01/19/25 21:00 01/20/25 09:45 Furosemide 10 Mg/Ml 4 Ml Vial IV 40 mg Q12HR [place] Administration Miscellaneous Information 1 each 01/19/25 14:41 Warfarin Per Pharmacy MISCELLANE DIRECTED PRN Per Protocol Protocol Naloxone HCl 0.2 mg 01/19/25 14:06 Naloxone 0.4 Mg/Ml 1 Ml Vial IV Q2M PRN Opioid Reversal Nitroglycerin 0.4 mg 01/19/25 14:39 Nitroglycerin Sl Tabs 0.4 Mg Tab SUBLINGUAL Q5M PRN Chest Pain Valsartan 320 mg 01/20/25 09:00 Valsartan 160 Mg Tab PO DAILY [place] Intake and Output 01/19/25 01/20/25 01/20/25 22:59 06:59 14:59 Other: Weight 134.263 kg 133.5 kg 01/20/25 05:53 01/19/25 12:32
[2025-01-20] MEDS: VALSARTAN 160 MG TAB PO SCH (12:02)
--- NOTE | 2025-01-20 15:15 | P.PN ---
Subjective Progress Note Date: 01/20/25 Hospital Course: Patient is a very pleasant 69-year-old male with a past medical history of third-degree heart block status post dual chamber pacemaker placement, paroxysmal atrial fibrillation status post cardiac ablation on anticoagulation with Coumadin, congestive heart failure, hypertension, and hyperlipidemia. He presented to the emergency department sent by his PCP for concerns of possible pacemaker dysfunction. Patient reports he was recently evaluated by his PCP for reports of shortness of breath and bilateral lower extremity edema. He reports he underwent an x-ray at the office which was concerning for possible detached pacemaker lead and fluid volume overload and he was instructed to come to the ER for evaluation. Patient admits to continued shortness of breath worse with any exertion, nonproductive cough and increasing lower extremity edema over the past month. He denies having any fevers, chills, diaphoresis, headache, lightheadedness, dizziness, chest pain, palpitations, abdominal pain, nausea, vomiting, or experiencing any focal numbness/tingling/weakness in his extremities. Patient does report in addition to above complaints he also suffers from chronic back pain and left shoulder pain. Upon arrival to our facility, patient underwent evaluation in the emergency department. Vital signs upon arrival show blood pressure 108/74, heart rate 92, respiratory rate 16, temp 97.3 F, and SpO2 of 92% on room air. EKG completed showing a ventricular paced rhythm at 70 bpm. Chest x-ray showing cardiomegaly with pulmonary vascular congestion and small to moderate-sized right pleural effusion with associated consolidation consistent with CHF. Labs completed and reviewed. CBC showing normocytic anemia with hemoglobin of 12.8. Coagulation profile showing supratherapeutic INR 4.0. BMP unremarkable with exception of mild prerenal azotemia with BUN of 21. Blood glucose 98. Lactic acid 0.8. Magnesium 1.8. Calcium 8.9. Liver profile unremarkable. Troponin elevated at 0.065 and proBNP also elevated at 2380. Patient provided with IV Lasix and admitted under our services with consultation to cardiology.Troponins trended resulting at 0.065, 0.059, 0.056. Physical exam: Vital signs reviewed and stable. General: Nontoxic, no distress and appears stated age. Obese. Derm: Skin warm and dry, normal coloration for ethnicity. Head: Atraumatic, normocephalic and symmetric. Eyes: EOM's intact, no lid lag, and anicteric sclera Mouth: no lip lesions, mucus membranes moist Cardiovascular: regular rate and rhythm with normal S1S2, systolic murmur, positive posterior tibial pulses bilaterally, and cap refill < 2 seconds. Lungs: Respirations even, regular, and unlabored on room air. Lungs diminished a t bases, no rhonchi, no rales, no wheezing, and no accessory muscle usage. Abdominal: soft, nontender to palpation, no guarding, no appreciable organomegaly Ext: ROM intact. No gross muscle atrophy, 3+ pitting bilateral lower extremity edema, no contractures Neuro: Speech clear, face symmetrical and CN II-XII grossly intact with no noted focal neuro deficits Psych: Alert and oriented to person, place, time, and situation. Appropriate and pleasant affect. Assessment and Plan of Care: Acute on chronic diastolic heart failure Elevated troponin, likely secondary to above Hypernatremia Supratherapeutic INR History of third-degree heart block status post dual-chamber pacemaker placement Paroxysmal atrial fibrillation Hypertension Hyperlipidemia -Cardiology following, discontinued amlodipine and starting patient on Farxiga 10 mg daily, recommending continued hospitalization for IV diuresis with Lasix. -Telemetry monitoring -Troponins trended resulting at 0.065, 0.059, 0.056. -ProBNP 2380 -Sodium elevated this morning from previous 137-149, will order repeat BMP for verification -Daily weights -Close monitoring of I's and O's -Cardiac diet -Lasix 40 mg IVP twice daily. Aspirin held secondary to reported allergy. -Continuation of daily medications including: Amlodipine 10 mg daily, atorvastatin 40 mg nightly, carvedilol 12.5 mg twice daily, and valsartan 320 mg daily. -Pharmacy to dose Coumadin with goal therapeutic range of 2-3. Currently supratherapeutic at 3.8. -Continued close monitoring of electrolytes while diuresing. -Echocardiogram to be completed. -Order placed for interrogation of pacemaker -Order placed for Albino wraps to bilateral lower extremities and to elevate when not in use Chronic lower back pain and left shoulder pain Continue Flexeril 10 mg 3 times daily, Tylenol 650 mg every 6 hours as needed for mild pain and Tylenol 3 with codeine 300-30 mg tablets (2 tablets) every 6 hours as needed for moderate pain. Maintain fall precautions. Data and imaging reviewed: Labs reviewed. Troponins trended resulting at 0.065, 0.059, 0.056. BMP showing hyponatremia with Sodium elevated this morning from previous 137-149, hyperchloremia with chloride of 111, and elevated anion gap of 12.50. Blood glucose 85. Magnesium 1.8. Calcium 8.8. Will order repeat BMP for verification of hypernatremia Vital signs reviewed. Blood pressure 112/68, heart rate 62, respiratory rate 18, temp 97.6 F, and SpO2 of 96% on room air CODE STATUS: Full Code DVT prophylaxis: Coumadin Anticipated discharge date: Pending clinical course Anticipated discharge place: Home Patient was seen independently by Nurse Practitioner. This document was prepared using Cover dictation software. Please allow for errors in special education aide while rare they do occur. Major Luo NP rendered care for this patient independently, reviewed the findings and plan as documented in the note above and agree with plan. I did not physically speak with or examine the patient on this date. Objective - Vital Signs Vital signs: Vital Signs Temp 97.6 F 01/20/25 07:36 Pulse 62 01/20/25 07:36 Resp 18 01/20/25 07:36 BP 112/68 01/20/25 07:36 Pulse Ox 96 01/20/25 07:36 FiO2 Intake & Output 01/19/25 01/20/25 01/20/25 18:59 06:59 18:59 Weight 134.263 kg 133.5 kg - Labs CBC & Chem 7: 01/20/25 05:53 01/20/25 05:53 Labs: Abnormal Lab Results - Last 24 Hours (Table) 01/19/25 01/19/25 01/19/25 Range/Units 12:32 12:32 12:32 RBC 4.19 L (4.40-5.60) 10*6/uL Hgb 12.8 L (13.0-17.0) g/dL Hct 39.0 L (39.6-50.0) % PT 40.1 H (10.0-12.5) sec INR 4.0 H (<1.2) APTT 36.3 H (22.0-30.0) sec BUN 21 H (9-20) mg/dL Troponin I (0.000-0.034) ng/mL 01/19/25 01/19/25 01/19/25 Range/Units 12:32 15:52 17:49 RBC (4.40-5.60) 10*6/uL Hgb (13.0-17.0) g/dL Hct (39.6-50.0) % PT (10.0-12.5) sec INR (<1.2) APTT (22.0-30.0) sec BUN (9-20) mg/dL Troponin I 0.065 H* 0.059 H* 0.056 H* (0.000-0.034) ng/mL 01/20/25 Range/Units 05:53 RBC (4.40-5.60) 10*6/uL Hgb (13.0-17.0) g/dL Hct (39.6-50.0) % PT 37.5 H (10.0-12.5) sec INR 3.8 H (<1.2) APTT (22.0-30.0) sec BUN (9-20) mg/dL Troponin I (0.000-0.034) ng/mL
[2025-01-20 16:17] LABS: African American GFR (CKD) >90 (>60 ml/min/1.73 sqM); Anion Gap 7 mmol/L; Blood Urea Nitrogen 20 mg/dL (9-20); Carbon Dioxide 28 mmol/L (22-30); Chloride 102 mmol/L (98-107); Glucose 120 mg/dL (74-99); Non-African American GFR(CKD) >90 (>60 ml/min/1.73 sqM); Potassium 4.2 mmol/L (3.5-5.1); Sodium 137 mmol/L (137-145)
[2025-01-20] MEDS: WARFARIN 0.5 MG TAB PO ONE (18:29)
[2025-01-21 06:09] LABS: INR 2.6 (<1.2); Prothrombin Time 25.7 sec (10.0-12.5)
[2025-01-21 08:27] LABS: HCT 42.7 % (39.6-50.0); HGB 13.8 g/dL (13.0-17.0); MCH 30.3 pg (27.0-32.0); MCHC 32.3 g/dL (32.0-37.0); MCV 93.6 FL (80.0-97.0); Mean Platelet Volume 11.4 FL (9.5-12.2); NRBC Per 100 WBC 0 X 10*3/uL (0.00-0.01); Platelet Count 256 X 10*3/uL (140-440); RBC 4.56 X 10*6/uL (4.40-5.60); RDW 13.2 % (11.5-14.5); WBC 7.34 X 10*3/uL (4.50-10.00)
[2025-01-21 09:01] LABS: NT-Pro-B-Type Natriuretic Pept 2166 pg/mL (0-125)
[2025-01-21 09:16] LABS: Magnesium 1.7 mg/dL (1.5-2.4)
[2025-01-21 09:49] LABS: Blood Urea Nitrogen 17.4 mg/dL (9.0-27.0); Calcium 9.1 mg/dL (8.7-10.3); Carbon Dioxide 27.6 mmol/L (21.6-31.8); Chloride 100 mmol/L (96-109); Glucose 101 mg/dL (70-110); Potassium 4.5 mmol/L (3.5-5.5); Sodium 139 mmol/L (135-145)
--- NOTE | 2025-01-21 12:17 | CA ---
Transthoracic Echo Report Name: Willie Gomez Age: 69 Gender: M : 1955 Exam Date: 01/21/2025 09:07 Exam Location: [facility] Ht (in): 71 Wt (lb): 294 Ordering Physician: Melvi Torres Attending/Referring Phys: [id number], Brian Customer Service Coordinator Rose Blackman RDCS Procedure CPT: Indications: chf Cardiac Hx: pacemaker Technical Quality: Fair Contrast 1: Total Dose (mL): Contrast 2: Total Dose (mL): MEASUREMENTS (Male / Female) Normal Values 2D ECHO LV Diastolic Diameter PLAX 4.5 cm 4.2 - 5.9 / 3.9 - 5.3 cm LV Systolic Diameter PLAX 4.4 cm IVS Diastolic Thickness 2.2 cm 0.6 - 1.0 / 0.6 - 0.9 cm LVPW Diastolic Thickness 1.7 cm 0.6 - 1.0 / 0.6 - 0.9 cm LV Relative Wall Thickness 0.9 RV Internal Dim ED PLAX 3.8 cm LVOT Diameter 2.4 cm LA Systolic Diameter LX 4.3 cm 3.0 - 4.0 / 2.7 - 3.8 cm LV Diastolic Volume MOD BP 117.4 cm??? 67 - 155 / 56 - 104 cm??? LV Systolic Volume MOD BP 52.0 cm??? 22 - 58 / 19 - 49 cm??? LV Ejection Fraction MOD BP 55.7 % >= 55 % LV Cardiac Index MOD BP 1310.9 cm???/min???m??? LV Diastolic Volume MOD 4C 117.6 cm??? LV Systolic Volume MOD 4C 57.6 cm??? LV Ejection Fraction MOD 4C 51.0 % LV Cardiac Index MOD 4C 1201.7 cm???/min???m??? LV Diastolic Length 4C 9.3 cm LV Systolic Length 4C 8.8 cm LV Diastolic Volume MOD 2C 111.7 cm??? LV Systolic Volume MOD 2C 46.7 cm??? LV Ejection Fraction MOD 2C 58.1 % LV Cardiac Index MOD 2C 1302.1 cm???/min???m??? LV Diastolic Length 2C 8.7 cm LV Systolic Length 2C 7.6 cm M-MODE Aortic Root Diameter MM 3.9 cm AV Cusp Separation MM 1.5 cm DOPPLER AV Peak Velocity 231.9 cm/s AV Peak Gradient 21.5 mmHg AV Mean Velocity 153.8 cm/s AV Mean Gradient 10.7 mmHg AV Velocity Time Integral 42.6 cm LVOT Peak Velocity 100.3 cm/s LVOT Peak Gradient 4.0 mmHg LVOT Velocity Time Integral 22.0 cm LVOT Stroke Volume 103.8 cm??? LVOT Stroke Volume Index 41.8 ml/m??? LVOT Cardiac Index 2081.0 cm???/min???m??? AV Area Cont Eq vti 2.4 cm??? AV Area Cont Eq pk 2.0 cm??? MV Area PHT 3.9 cm??? TR Peak Velocity 261.9 cm/s TR Peak Gradient 27.4 mmHg Right Ventricular Systolic Press 37.4 mmHg FINDINGS Left Ventricle Left ventricular ejection fraction is estimated at 50-55 %. Left ventricular cavity size normal. Severely increased septal wall thickness.asymmetric left ventricular hypertrophy. Right Ventricle Mild right ventricular dilatation. Mild pulmonary hypertension. Right Atrium Normal right atrial size. No right atrial thrombus or mass seen. Left Atrium Mildly increased left atrial diameter. No left atrial thrombus or mass present. Mitral Valve Structurally normal mitral valve. No evidence for mitral valve prolapse. No mitral stenosis. mild mitral regurgitation.mitral annular calcification. Aortic Valve Trileaflet aortic valve. Aortic valve sclerosis. Mild aortic stenosis with a peak gradient of 22 mmHg and a mean gradient of 11 mmHg. No aortic regurgitation. Tricuspid Valve Structurally normal tricuspid valve. Mild tricuspid regurgitation. Pulmonic Valve Structurally normal pulmonic valve. No pulmonic regurgitation. Pericardium No pericardial or pleural effusion. Aorta Mild aortic dilatation at the level of the sinuses of valsalva 39 mm. CONCLUSIONS 1. Borderline normal left ventricular systolic function 2. Mild mitral and tricuspid regurgitation with mild pulmonary hypertension 3. Mild aortic stenosis with a mean gradient of 11 mmHg Previewed by: Dr. Adiel Graves MD (Electronically Signed) Final Date: 21 January 2025 12:16
--- NOTE | 2025-01-21 12:40 | P.PN ---
Subjective Progress Note Date: 01/21/25 Reason for Consult (text): CHF Chief complaint: shortness of breath, edema History of present illness: This is a pleasant 69-year-old gentleman patient of Dr. Saucedo with past medical history of sick sinus syndrome status post dual-chamber pacemaker, right bundle branch block, paroxysmal atrial fibrillation, hypertension, diabetes, and chronically elevated troponins noted in the past. Initially presented at the advice of clinic after chest x-ray showed possibility of pacemaker lead displacement. Patient has been feeling more short of breath with worsening lower extremity edema over the last 10 days. EKG on admission showed underlying atrial fibrillation with ventricular paced rhythm with no evidence of pacemaker malfunction. Diagnostics -EKG: A-fib with ventricular paced rhythm -Chest x-ray: Cardiomegaly with pulmonary vascular congestion and small to moderate-sized right pleural effusion with associated consolidation. Correlate for CHF exacerbation and/or pneumonia -Laboratory studies: 12.8, INR 4.0, potassium 4.2, BUN 21, creatinine 0.88, 0.065, 0.059 and 0.056, NT proBNP 2380 -Home cardiac medications: None, atorvastatin 40 mg p.o. nightly, carvedilol 12.5 mg p.o. twice daily, amlodipine 10 mg p.o. daily, valsartan 320 mg p.o. daily -Prior stress test: Dobutamine stress echo 09/2023 diagnostic patient not able to achieve 85% predicted maximum heart rate, examination of wall motion abnormality on echo challenging due to severe LVH and atypical septal motion due to RV paced rhythm -Echocardiogram: September 2023 LVH normal LV systolic function -Cardiac catheterization: June 2017 normal coronary arteries 01/21/2025 Patient seen and examined. Patient has been maintained on IV Lasix 40 mg every 12 hours. Patient states his lower extremity edema is improved. His breathing is better. He is feeling cold. He denies any dizziness. Blood pressure 110/73, heart rate 59, pulse ox 97% on room air. Repeat blood work reveals INR 2.6. CBC unremarkable. Electrolytes and renal function are normal. proBNP 2166. Echocardiogram reveals borderline normal left ventricular systolic function. M ild mitral and tricuspid regurgitation with mild pulmonary hypertension. Mild aortic stenosis with mean gradient of 11 mmHg. PHYSICAL EXAMINATION: This is a 69-year-old male in no apparent distress at the time of my examination. VITAL SIGNS: Reviewed. HEENT: Head is atraumatic, normocephalic. Pupils are equal, round. Sclerae anicteric. Conjunctivae are clear. Mucous membranes of the mouth are moist. Neck is supple. There is no elevated jugular venous pressure. No carotid bruit is heard. CHEST EXAMINATION: Diminished air entry right lower lobe with faint bibasilar crackles. No wheezes or rhonchi. Respirations even and nonlabored. HEART EXAMINATION: Heart regular, positive S1 and S2. No S3. No S4. Systolic murmur. ABDOMEN: Soft, nontender. Bowel sounds are heard. No organomegaly noted. EXTREMITIES: palpable peripheral pulses with evidence of moderate peripheral edema left greater than right and no calf tenderness noted. NEUROLOGIC EXAMINATION: Patient is awake, alert and oriented x3. Assessment: 1. Acute on chronic heart failure, diastolic 2. Paroxysmal atrial fibrillation, currently in A-fib anticoagulated on warfarin with supratherapeutic INR that is improved 3. Sick sinus syndrome, status post dual-chamber pacemaker 4. Elevated troponin, chronic, likely secondary to LVH 5. Hypertension Plan: From cardiology's perspective we will interrogate the pacemaker as there appears to be no pacemaker malfunction. Continue IV Lasix 40 mg every 12 hours for another day. We will discontinue amlodipine. Continue the addition of Farxiga. Repeat chest x-ray in the morning Pharmacy is dosing Coumadin Acute exacerbation of heart failure could be related to the atrial fibrillation. Will continue to follow the patient and provide further recommendations accordingly. Nurse practitioner note has been reviewed, I agree with documented findings and plan of care. Patient was seen and examined. Objective - Vital Signs Vital signs: Vital Signs Temp 97.3 F L 01/21/25 07:00 Pulse 59 L 01/21/25 07:00 Resp 15 01/21/25 07:00 BP 110/73 01/21/25 07:00 Pulse Ox 97 01/21/25 07:00 FiO2 Intake & Output 01/20/25 01/21/25 01/21/25 18:59 06:59 18:59 Intake Total 709 Output Total 2600 Balance -1891 Weight 131.2 kg Intake: Oral 709 Output: Urine 2600 Other: Voiding Method Toilet - Labs CBC & Chem 7: 01/21/25 05:24 01/21/25 05:24 Labs: Abnormal Lab Results - Last 24 Hours (Table) 01/20/25 01/20/25 01/20/25 Range/Units 05:53 05:53 15:35 RBC 4.35 L (4.40-5.60) X 10*6/uL MCHC 31.7 L (32.0-37.0) g/dL PT (10.0-12.5) sec INR (<1.2) Sodium 149 H (135-145) mmol/L Chloride 111 H (96-109) mmol/L Anion Gap 12.50 H (4.00-12.00) mmol/L BUN/Creatinine Ratio 21.67 H (12.00-20.00) Ratio Glucose 120 H (74-99) mg/dL 01/21/25 Range/Units 05:24 RBC (4.40-5.60) X 10*6/uL MCHC (32.0-37.0) g/dL PT 25.7 H (10.0-12.5) sec INR 2.6 H (<1.2) Sodium (135-145) mmol/L Chloride (96-109) mmol/L Anion Gap (4.00-12.00) mmol/L BUN/Creatinine Ratio (12.00-20.00) Ratio Glucose (74-99) mg/dL
--- NOTE | 2025-01-21 15:55 | P.PN ---
Subjective Progress Note Date: 01/21/25 69-year-old male with a past medical history of third-degree heart block status post dual chamber pacemaker placement, paroxysmal atrial fibrillation status post cardiac ablation on anticoagulation with Coumadin, congestive heart failure, hypertension, and hyperlipidemia. He presented to the emergency dep artment sent by his PCP for concerns of possible pacemaker dysfunction. Patient reports he was recently evaluated by his PCP for reports of shortness of breath and bilateral lower extremity edema. He reports he underwent an x-ray at the office which was concerning for possible detached pacemaker lead and fluid volume overload and he was instructed to come to the ER for evaluation. Upon arrival to our facility, patient underwent evaluation in the emergency department. Vital signs upon arrival show blood pressure 108/74, heart rate 92, respiratory rate 16, temp 97.3 F, and SpO2 of 92% on room air. EKG completed showing a ventricular paced rhythm at 70 bpm. Chest x-ray showing cardiomegaly with pulmonary vascular congestion and small to moderate-sized right pleural effusion with associated consolidation consistent with CHF. Labs completed and reviewed. CBC showing normocytic anemia with hemoglobin of 12.8. Coagulation profile showing supratherapeutic INR 4.0. BMP unremarkable with exception of mild prerenal azotemia with BUN of 21. Blood glucose 98. Lactic acid 0.8. Magnesium 1.8. Calcium 8.9. Liver profile unremarkable. Troponin elevated at 0.065 and proBNP also elevated at 2380. Patient provided with IV Lasix and admitted under our services with consultation to cardiology.Troponins trended resulting at 0.065, 0.059, 0.056. 01/21 Patient was seen and examined. Improved SOB and LE edema. Cardiology recommends interrogating pacemaker, continue IV lasix, DC Amlodipine and add Farxiga. CBC, Coag panel and BMP significant for PT 25.7, INR 2.6. Mag 1.7. BNP 2166. Echo EF 50-55% mild MR/TR/ and LVH. General: no distress, appears at stated age Derm: warm, dry Head: atraumatic, normocephalic, symmetric Mouth: no lip lesion, mucus membranes moist Cardiovascular: S1 S2 reg. no murmur. Lungs: Decreased BS bilaterally, no accessory muscle use Ext: no gross muscle atrophy, 2+ LE pitting edema, no contractures Neuro: No focal neurologic deficits. Psych: Alert and oriented. Based on my assessment of this patient, this patient meets a high complexity level of care. Acute on chronic diastolic heart failure: Lasix 40 mg IV BID. Strict intake and outtake. Daily weights. Farxiga 10 mg PO QD. Antihypertensive medications as below. Cardiology on board. 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 Hypertension: Coreg 12.5 mg PO BID. Valsartan 320 mg PO QD. Hyperlipidemia: Lipitor 30 mg PO QHS. Chronic lower back pain and left shoulder pain: Flexeril 10 mg PO TID. Tylenol 650 mg PO Q6H PRN. T3 2 tab PO Q6H PRN. Fall precautions. Resolved: Supratherapeutic INH. HyperNa CODE STATUS: FULL CODE DVT Prophylaxis: Coumadin GI Prophylaxis: Designated medical POA if patient is not able to make medical decisions for the mselves: I have reviewed the following applications sales consultant notes: Marcelo. I have reviewed the results of the following tests: CBC, BMP, Coag panel, Echo. I have ordered the following tests: BMP in the AM. I have discussed the care of this patient with the following independent historian: GÓMEZ. I have independently interpreted the following test below: I have discussed the management of this patient with the following physician: Objective - Vital Signs Vital signs: Vital Signs Temp 97.8 F 01/21/25 14:38 Pulse 61 01/21/25 14:38 Resp 17 01/21/25 14:38 BP 98/63 01/21/25 14:38 Pulse Ox 94 L 01/21/25 14:38 FiO2 Intake & Output 01/20/25 01/21/25 01/21/25 18:59 06:59 18:59 Intake Total 709 120 Output Total 2600 1775 Balance -1891 -1655 Weight 131.2 kg Intake: Oral 709 120 Output: Urine 2600 1775 Other: Voiding Method Toilet Toilet - Labs CBC & Chem 7: 01/21/25 05:24 01/21/25 05:24 Labs: Abnormal Lab Results - Last 24 Hours (Table) 01/20/25 01/21/25 01/21/25 Range/Units 15:35 05:24 05:24 PT 25.7 H (10.0-12.5) sec INR 2.6 H (<1.2) Glucose 120 H (74-99) mg/dL NT-Pro-B Natriuret Pep 2166 H (0-125) pg/mL
[2025-01-21] MEDS: WARFARIN 7.5 MG TAB PO ONE (18:13)
[2025-01-22 06:11] LABS: INR 1.9 (<1.2); Prothrombin Time 19.6 sec (10.0-12.5)
[2025-01-22 08:35] LABS: Glucose 88 mg/dL (70-110)
[2025-01-22 08:36] LABS: Carbon Dioxide 27.2 mmol/L (21.6-31.8); Chloride 101 mmol/L (96-109); Potassium 4.1 mmol/L (3.5-5.5); Sodium 140 mmol/L (135-145)
[2025-01-22] MEDS: SPIRONOLACTONE 25 MG TAB PO SCH (08:43)
[2025-01-22] MEDS: VALSARTAN 160 MG TAB PO SCH (08:44)
--- NOTE | 2025-01-22 08:45 | XR ---
EXAMINATION TYPE: XR chest 2V DATE OF EXAM: 01/22/2025 7:28 AM COMPARISON: Chest radiographs from 01/19/2025. CLINICAL INDICATION: Male, 69 years old with history of CHF; H TECHNIQUE: XR chest 2V Frontal and lateral views of the chest. FINDINGS: Lungs/Pleura: Blunting of the right costophrenic angle. There is no evidence of left pleural effusio n, focal consolidation, or pneumothorax Pulmonary vascularity: Improved aeration the lungs in today's exam with mild pulmonary edema. Heart/mediastinum: Cardiomediastinal silhouette is enlarged. Two lead cardiac conduction device overl adam the left hemithorax with lead tips projecting over the right ventricle and right atrium. Musculoskeletal: No acute osseous pathology. Other findings: None Lines/Tubes: IMPRESSION: Improved aeration of the lungs with Cardiomegaly, pulmonary vascular congestion and right pleural eff usions. Correlate with BNP for congestive heart failure. [facility], , 01/22/2025 8:42 AM
--- NOTE | 2025-01-22 11:58 | P.PN ---
Subjective Progress Note Date: 01/22/25 Reason for Consult (text): CHF Chief complaint: shortness of breath, edema History of present illness: This is a pleasant 69-year-old gentleman patient of Dr. Saucedo with past medical history of sick sinus syndrome status post dual-chamber pacemaker, right bundle branch block, paroxysmal atrial fibrillation, hypertension, diabetes, and chronically elevated troponins noted in the past. Initially presented at the advice of clinic after chest x-ray showed possibility of pacemaker lead displacement. Patient has been feeling more short of breath with worsening lower extremity edema over the last 10 days. EKG on admission showed underlying atrial fibrillation with ventricular paced rhythm with no evidence of pacemaker malfunction. Diagnostics -EKG: A-fib with ventricular paced rhythm -Chest x-ray: Cardiomegaly with pulmonary vascular congestion and small to moderate-sized right pleural effusion with associated consolidation. Correlate for CHF exacerbation and/or pneumonia -Laboratory studies: 12.8, INR 4.0, potassium 4.2, BUN 21, creatinine 0.88, 0.065, 0.059 and 0.056, NT proBNP 2380 -Home cardiac medications: None, atorvastatin 40 mg p.o. nightly, carvedilol 12.5 mg p.o. twice daily, amlodipine 10 mg p.o. daily, valsartan 320 mg p.o. daily -Prior stress test: Dobutamine stress echo 09/2023 diagnostic patient not able to achieve 85% predicted maximum heart rate, examination of wall motion abnormality on echo challenging due to severe LVH and atypical septal motion due to RV paced rhythm -Echocardiogram: September 2023 LVH normal LV systolic function -Cardiac catheterization: June 2017 normal coronary arteries 01/21/2025 Patient seen and examined. Patient has been maintained on IV Lasix 40 mg every 12 hours. Patient states his lower extremity edema is improved. His breathing is better. He is feeling cold. He denies any dizziness. Blood pressure 110/73, heart rate 59, pulse ox 97% on room air. Repeat blood work reveals INR 2.6. CBC unremarkable. Electrolytes and renal function are normal. proBNP 2166. Echocardiogram reveals borderline normal left ventricular systolic function. Mi ld mitral and tricuspid regurgitation with mild pulmonary hypertension. Mild aortic stenosis with mean gradient of 11 mmHg. 01/22/2025 Patient seen and examined. Patient states that his breathing is better as well as lower extremity edema. Blood pressure 105/70, heart rate 60, pulse ox 97% on room air. He has blood pressures on the low side will decrease valsartan and also add in Aldactone. Patient has been maintained on IV Lasix 40 mg every 12 hours which we will plan to continue. Repeat blood work reveals normal electrolytes, INR 1.9. Repeat chest x-ray reveals improved aeration of the lungs with cardiomegaly, pulmonary vascular congestion and right pleural effusion. PHYSICAL EXAMINATION: This is a 69-year-old male in no apparent distress at the time of my examination. VITAL SIGNS: Reviewed. HEENT: Head is atraumatic, normocephalic. Pupils are equal, round. Sclerae anicteric. Conjunctivae are clear. Mucous membranes of the mouth are moist. Neck is supple. There is no elevated jugular venous pressure. No carotid bruit is heard. CHEST EXAMINATION: Diminished air entry right lower lobe with faint bibasilar crackles. No wheezes or rhonchi. Respirations even and nonlabored. HEART EXAMINATION: Heart regular, positive S1 and S2. No S3. No S4. Systolic murmur. ABDOMEN: Soft, nontender. Bowel sounds are heard. No organomegaly noted. EXTREMITIES: palpable peripheral pulses with evidence of moderate peripheral edema left greater than right and no calf tenderness noted. NEUROLOGIC EXAMINATION: Patient is awake, alert and oriented x3. Assessment: 1. Acute on chronic heart failure, diastolic 2. Paroxysmal atrial fibrillation, currently in A-fib anticoagulated on w arfarin with supratherapeutic INR that is improved 3. Sick sinus syndrome, status post dual-chamber pacemaker 4. Elevated troponin, chronic, likely secondary to LVH 5. Hypertension Plan: Pacemaker interrogation reviewed and appears to be no pacemaker malfunction. Continue IV Lasix 40 mg every 12 hours for another day. Monitor MIRACLE, daily weights, electrolytes and renal function Continue with plan to discontinue amlodipine. Decrease valsartan to 160 mg daily due to hypotension Add Aldactone 25 mg daily Continue the addition of Farxiga. Pharmacy is dosing Coumadin Acute exacerbation of heart failure could be related to the atrial fibrillation. Will continue to follow the patient and provide further recommendations accordingly. Nurse practitioner note has been reviewed, I agree with documented findings and plan of care. Patient was seen and examined. Objective - Vital Signs Vital signs: Vital Signs Temp 97.6 F 01/22/25 07:00 Pulse 63 06/13/25 07:00 Resp 16 01/22/25 07:00 BP 105/70 01/22/25 07:00 Pulse Ox 97 01/22/25 07:00 FiO2 Intake & Output 01/21/25 01/22/25 01/22/25 18:59 06:59 18:59 Intake Total 120 1300 Output Total 2100 3050 Balance -1979 -1749 Weight 128.9 kg Intake: Oral 120 1300 Output: Urine 2100 3050 Other: Voiding Method Toilet - Labs CBC & Chem 7: 01/21/25 05:24 01/22/25 05:20 Labs: Abnormal Lab Results - Last 24 Hours (Table) 01/21/25 01/22/25 Range/Units 05:24 05:20 PT 19.6 H (10.0-12.5) sec INR 1.9 H (<1.2) NT-Pro-B Natriuret Pep 2166 H (0-125) pg/mL
--- NOTE | 2025-01-22 14:29 | P.PN ---
Subjective Progress Note Date: 01/22/25 69-year-old male with a past medical history of third-degree heart block status post dual chamber pacemaker placement, paroxysmal atrial fibrillation status post cardiac ablation on anticoagulation with Coumadin, congestive heart failure, hypertension, and hyperlipidemia. He presented to the emergency dep artment sent by his PCP for concerns of possible pacemaker dysfunction. Patient reports he was recently evaluated by his PCP for reports of shortness of breath and bilateral lower extremity edema. He reports he underwent an x-ray at the office which was concerning for possible detached pacemaker lead and fluid volume overload and he was instructed to come to the ER for evaluation. Upon arrival to our facility, patient underwent evaluation in the emergency department. Vital signs upon arrival show blood pressure 108/74, heart rate 92, respiratory rate 16, temp 97.3 F, and SpO2 of 92% on room air. EKG completed showing a ventricular paced rhythm at 70 bpm. Chest x-ray showing cardiomegaly with pulmonary vascular congestion and small to moderate-sized right pleural effusion with associated consolidation consistent with CHF. Labs completed and reviewed. CBC showing normocytic anemia with hemoglobin of 12.8. Coagulation profile showing supratherapeutic INR 4.0. BMP unremarkable with exception of mild prerenal azotemia with BUN of 21. Blood glucose 98. Lactic acid 0.8. Magnesium 1.8. Calcium 8.9. Liver profile unremarkable. Troponin elevated at 0.065 and proBNP also elevated at 2380. Patient provided with IV Lasix and admitted under our services with consultation to cardiology.Troponins trended resulting at 0.065, 0.059, 0.056. 01/21 Patient was seen and examined. Improved SOB and LE edema. Cardiology recommends interrogating pacemaker, continue IV lasix, DC Amlodipine and add Farxiga. CBC, Coag panel and BMP significant for PT 25.7, INR 2.6. Mag 1.7. BNP 2166. Echo EF 50-55% mild MR/TR/ and LVH. 01/22 Patient was seen and examined. Improved SOB and LE edema. Cardiology recommends continue IV lasix, decrease Valsartan, add Aldactone. Negative 3.73L fluid balance. Coag panel and BMP significant for PT 19.6, INR 1.9, BUN/Cr 21. CXR done today shows improved pulmonary vascular congestion. General: no distress, appears at stated age Derm: warm, dry Head: atraumatic, normocephalic, symmetric Mouth: no lip lesion, mucus membranes moist Cardiovascular: S1 S2 reg. no murmur. Lungs: Decreased BS bilaterally, no accessory muscle use Ext: no gross muscle atrophy, 2+ LE pitting edema, no contractures Neuro: No focal neurologic deficits. Psych: Alert and oriented. Based on my assessment of this patient, this patient meets a high complexity level of care. Acute on chronic diastolic heart failure: Lasix 40 mg IV BID (monitor renal function daily and e-lytes). Strict intake and outtake. Daily weights. Farxiga 10 mg PO QD. Antihypertensive medications as below. Cardiology on board. 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 Hypertension: Coreg 12.5 mg PO BID. Decreased Valsartan 320 to 160 mg PO QD. + Aldactone 25 mg PO QD. Hyperlipidemia: Lipitor 40 mg PO QHS. Chronic lower back pain and left shoulder pain: Flexeril 10 mg PO TID. Tylenol 650 mg PO Q6H PRN. T3 2 tab PO Q6H PRN. Fall precautions. Resolved: Supratherapeutic INH. HyperNa CODE STATUS: FULL CODE DVT Prophylaxis: Coumadin GI Prophylaxis: Designated medical POA if patient is not able to make medical decisions for themselves: I have reviewed the following specification consultant notes: Marcelo. I have reviewed the results of the following tests: BMP, Coag panel I have ordered the following tests: BMP in the AM. I have discussed the care of this patient with the following independent historian: GÓMEZ. I have independently interpreted the following test below: CXR I have discussed the management of this patient with the following physician: Objective - Vital Signs Vital signs: Vital Signs Temp 97.6 F 01/22/25 07:00 Pulse 63 01/22/25 07:00 Resp 16 01/22/25 07:00 BP 105/70 01/22/25 07:00 Pulse Ox 97 01/22/25 07:00 FiO2 Intake & Output 01/21/25 01/22/25 01/22/25 18:59 06:59 18:59 Intake Total 120 1300 118 Output Total 2100 9170 700 Balance -1980 -1750 -582 Weight 128.9 kg Intake: Oral 120 1300 118 Output: Urine 2100 3050 700 Other: Voiding Method Toilet - Labs CBC & Chem 7: 01/21/25 05:24 01/22/25 05:20 Labs: Abnormal Lab Results - Last 24 Hours (Table) 01/22/25 01/22/25 Range/Units 05:20 05:20 PT 19.6 H (10.0-12.5) sec INR 1.9 H (<1.2) BUN/Creatinine Ratio 21.00 H (12.00-20.00) Ratio
[2025-01-22] MEDS: WARFARIN 7.5 MG TAB PO ONE (18:27)
[2025-01-23 06:35] LABS: INR 1.8 (<1.2); Prothrombin Time 18.6 sec (10.0-12.5)
[2025-01-23 09:46] LABS: BUN/Creat Ratio 21.09 Ratio (12.00-20.00); Blood Urea Nitrogen 23.2 mg/dL (9.0-27.0); Calcium 9.5 mg/dL (8.7-10.3); Chloride 98 mmol/L (96-109); Glucose 90 mg/dL (70-110); Potassium 4.5 mmol/L (3.5-5.5); Sodium 141 mmol/L (135-145)
--- NOTE | 2025-01-23 12:08 | PN ---
PROGRESS NOTE SUBJECTIVE: Willie is a 69-year-old gentleman with history of sick sinus syndrome status post permanent pacemaker, paroxysmal atrial fibrillation, hypertension, diabetes, who presented to hospital with worsening leg edema and shortness of breath. An echocardiogram on this admission revealed borderline normal LV function with mild aortic stenosis and mild pulmonary hypertension. OBJECTIVE: GENERAL: On exam, he is comfortable at rest. VITAL SIGNS: Stable. CHEST: Reveals good air entry bilaterally. HEART: Reveals first and second heart sounds. Ejection systolic murmur in the aortic area. ABDOMEN: Soft, nontender. EXTREMITIES: Reveals mild edema. Peripheral pulses are felt. LABORATORY DATA: Show that the INR is 1.8. Pharmacy is dosing the Coumadin. ASSESSMENT: 1. [id number] diastolic heart failure. 2. Paroxysmal atrial fibrillation. 3. Sick sinus syndrome, status post permanent pacemaker. 4. Hypertension. PLAN: I will increase the dose of Lasix to 40 every 8 hours. This patient still has bilateral leg edema. He is currently on IV b.i.d. MMORLANDO / HIEUN: [id number] /
--- NOTE | 2025-01-23 12:26 | P.PN ---
Subjective Progress Note Date: 01/23/25 69-year-old male with a past medical history of third-degree heart block status post dual chamber pacemaker placement, paroxysmal atrial fibrillation status post cardiac ablation on anticoagulation with Coumadin, congestive heart failure, hypertension, and hyperlipidemia. He presented to the emergency dep artment sent by his PCP for concerns of possible pacemaker dysfunction. Patient reports he was recently evaluated by his PCP for reports of shortness of breath and bilateral lower extremity edema. He reports he underwent an x-ray at the office which was concerning for possible detached pacemaker lead and fluid volume overload and he was instructed to come to the ER for evaluation. Upon arrival to our facility, patient underwent evaluation in the emergency department. Vital signs upon arrival show blood pressure 108/74, heart rate 92, respiratory rate 16, temp 97.3 F, and SpO2 of 92% on room air. EKG completed showing a ventricular paced rhythm at 70 bpm. Chest x-ray showing cardiomegaly with pulmonary vascular congestion and small to moderate-sized right pleural effusion with associated consolidation consistent with CHF. Labs completed and reviewed. CBC showing normocytic anemia with hemoglobin of 12.8. Coagulation profile showing supratherapeutic INR 4.0. BMP unremarkable with exception of mild prerenal azotemia with BUN of 21. Blood glucose 98. Lactic acid 0.8. Magnesium 1.8. Calcium 8.9. Liver profile unremarkable. Troponin elevated at 0.065 and proBNP also elevated at 2380. Patient provided with IV Lasix and admitted under our services with consultation to cardiology.Troponins trended resulting at 0.065, 0.059, 0.056. 01/21 Patient was seen and examined. Improved SOB and LE edema. Cardiology recommends interrogating pacemaker, continue IV lasix, DC Amlodipine and add Farxiga. CBC, Coag panel and BMP significant for PT 25.7, INR 2.6. Mag 1.7. BNP 2166. Echo EF 50-55% mild MR/TR/ and LVH. 01/22 Patient was seen and examined. Improved SOB and LE edema. Cardiology recommends continue IV lasix, decrease Valsartan, add Aldactone. Negative 3.73L fluid balance. Coag panel and BMP significant for PT 19.6, INR 1.9, BUN/Cr 21. CXR done today shows improved pulmonary vascular congestion. 01/23 Patient was seen and examined. Improved SOB and LE edema. Cardiology has increased Lasix doing to TID. Negative 2.365L fluid balance. Coag panel and BMP significant for PT 18.6, INR 1.8, bicarb 33, BUN/Cr 21.09. General: no distress, appears at stated age Derm: warm, dry Head: atraumatic, normocephalic, symmetric Mouth: no lip lesion, mucus membranes moist Cardiovascular: S1 S2 reg. no murmur. Lungs: Decreased BS bilaterally, no accessory muscle use Ext: no gross muscle atrophy, 2+ LE pitting edema, no contractures Neuro: No focal neurologic deficits. Psych: Alert and oriented. Based on my assessment of this patient, this patient meets a high complexity level of care. Acute on chronic diastolic heart failure: Increase Lasix 40 mg IV BID to TID (monitor renal function daily and e-lytes). Strict intake and outtake. Daily weights. Farxiga 10 mg PO QD. Antihypertensive medications as below. Cardiology on board. 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 Hypertension: Coreg 12.5 mg PO BID. Valsartan 160 mg PO QD. Aldactone 25 mg PO QD. Hyperlipidemia: Lipitor 40 mg PO QHS. Chronic lower back pain and left shoulder pain: Flexeril 10 mg PO TID. Tylenol 650 mg PO Q6H PRN. T3 2 tab PO Q6H PRN. Fall precautions. Resolved: Supratherapeutic INH. HyperNa CODE STATUS: FULL CODE DVT Prophylaxis: Coumadin GI Prophylaxis: Designated medical POA if patient is not able to make medical decisions for themselves: I have reviewed the following safety consultant notes: I have reviewed the results of the following tests: BMP, Coag panel I have ordered the following tests: BMP in the AM. I have discussed the care of this patient with the following independent historian: GÓMEZ. I have independently interpreted the following test below: I have discussed the management of this patient with the following physician: Objective - Vital Signs Vital signs: Vital Signs Temp 97.8 F 01/23/25 07:23 Pulse 67 01/23/25 07:23 Resp 16 01/23/25 07:23 BP 118/75 01/23/25 07:23 Pulse Ox 94 L 01/23/25 07:23 FiO2 Intake & Output 06/13/25 06/14/25 06/14/25 18:59 06:59 18:59 Intake Total 118 1522 Output Total 1805 2200 800 Balance -1687 -678 -800 Weight 128.1 kg Intake: Oral 118 1522 Output: Urine 1100 2200 800 Stool 705 - Labs CBC & Chem 7: 01/21/25 05:24 01/23/25 05:48 Labs: Abnormal Lab Results - Last 24 Hours (Table) 01/23/25 01/23/25 Range/Units 05:48 05:48 PT 18.6 H (10.0-12.5) sec INR 1.8 H (<1.2) Carbon Dioxide 33.0 H (21.6-31.8) mmol/L BUN/Creatinine Ratio 21.09 H (12.00-20.00) Ratio
[2025-01-23] MEDS: FUROSEMIDE 10 MG/ML 4 ML VIAL IV SCH (15:55)
[2025-01-23] MEDS: WARFARIN 10 MG TAB PO ONE (18:20)
[2025-01-24 05:52] LABS: INR 2.1 (<1.2); Prothrombin Time 21.2 sec (10.0-12.5)
[2025-01-24 07:18] VITALS: BP 101/65; PULSE 68; RESP 16; TEMP 97.6
[2025-01-24 09:29] LABS: BUN/Creat Ratio 21.54 Ratio (12.00-20.00); Calcium 9.7 mg/dL (8.7-10.3); Carbon Dioxide 29.6 mmol/L (21.6-31.8); Chloride 95 mmol/L (96-109); Glucose 106 mg/dL (70-110); Potassium 4.7 mmol/L (3.5-5.5); Sodium 138 mmol/L (135-145)
--- NOTE | 2025-01-24 12:31 | P.PN ---
Subjective Progress Note Date: 01/24/25 Reason for Consult (text): CHF Chief complaint: shortness of breath, edema History of present illness: This is a pleasant 69-year-old gentleman patient of Dr. Saucedo with past medical history of sick sinus syndrome status post dual-chamber pacemaker, right bundle branch block, paroxysmal atrial fibrillation, hypertension, diabetes, and chronically elevated troponins noted in the past. Initially presented at the advice of clinic after chest x-ray showed possibility of pacemaker lead displacement. Patient has been feeling more short of breath with worsening lower extremity edema over the last 10 days. EKG on admission showed underlying atrial fibrillation with ventricular paced rhythm with no evidence of pacemaker malfunction. Diagnostics -EKG: A-fib with ventricular paced rhythm -Chest x-ray: Cardiomegaly with pulmonary vascular congestion and small to moderate-sized right pleural effusion with associated consolidation. Correlate for CHF exacerbation and/or pneumonia -Laboratory studies: 12.8, INR 4.0, potassium 4.2, BUN 21, creatinine 0.88, 0.065, 0.059 and 0.056, NT proBNP 2380 -Home cardiac medications: None, atorvastatin 40 mg p.o. nightly, carvedilol 12.5 mg p.o. twice daily, amlodipine 10 mg p.o. daily, valsartan 320 mg p.o. daily -Prior stress test: Dobutamine stress echo 09/2023 diagnostic patient not able to achieve 85% predicted maximum heart rate, examination of wall motion abnormality on echo challenging due to severe LVH and atypical septal motion due to RV paced rhythm -Echocardiogram: September 2023 LVH normal LV systolic function -Cardiac catheterization: June 2017 normal coronary arteries 01/21/2025 Patient seen and examined. Patient has been maintained on IV Lasix 40 mg every 12 hours. Patient states his lower extremity edema is improved. His breathing is better. He is feeling cold. He denies any dizziness. Blood pressure 110/73, heart rate 59, pulse ox 97% on room air. Repeat blood work reveals INR 2.6. CBC unremarkable. Electrolytes and renal function are normal. proBNP 2166. Echocardiogram reveals borderline normal left ventricular systolic function. Mi ld mitral and tricuspid regurgitation with mild pulmonary hypertension. Mild aortic stenosis with mean gradient of 11 mmHg. 01/22/2025 Patient seen and examined. Patient states that his breathing is better as well as lower extremity edema. Blood pressure 105/70, heart rate 60, pulse ox 97% on room air. He has blood pressures on the low side will decrease valsartan and also add in Aldactone. Patient has been maintained on IV Lasix 40 mg every 12 hours which we will plan to continue. Repeat blood work reveals normal electrolytes, INR 1.9. Repeat chest x-ray reveals improved aeration of the lungs with cardiomegaly, pulmonary vascular congestion and right pleural effusion. 01/24/2025 Patient seen and examined. Yesterday, Lasix was increased to 40 mg every 8 hours by IV. He still has some lower extremity edema but is improved. He feels his breathing is better. He has had a weight loss of 5 kg since admission. Blood pressure 101/65, heart rate 68, pulse ox 96% on room air. Blood work for today reveals INR 2.1, BUN 28 creatinine 1.3, potassium 4.7. PHYSICAL EXAMINATION: This is a 69-year-old male in no apparent distress at the time of my examination. VITAL SIGNS: Reviewed. HEENT: Head is atraumatic, normocephalic. Pupils are equal, round. Sclerae anicteric. Conjunctivae are clear. Mucous membranes of the mouth are moist. Neck is supple. There is no elevated jugular venous pressure. No carotid bruit is heard. CHEST EXAMINATION: Diminished air entry right lower lobe with faint bibasilar crackles. No wheezes or rhonchi. Respirations even and nonlabored. HEART EXAMINATION: Heart regular, positive S1 and S2. No S3. No S4. Systolic murmur. ABDOMEN: Soft, nontender. Bowel sounds are heard. No organomegaly noted. EXTREMITIES: palpable peripheral pulses with evidence of minimal peripheral edema left greater than right and no calf tenderness noted. NEUROLOGIC EXAMINATION: Patient is awake, alert and oriented x3. Assessment: 1. Acute on chronic heart failure, diastolic 2. Paroxysmal atrial fibrillation, currently in A-fib anticoagulated on warfarin with supratherapeutic INR that is improved 3. Sick sinus syndrome, status post dual-chamber pacemaker 4. Elevated troponin, chronic, likely secondary to LVH 5. Hypertension Plan: Pacemaker interrogation reviewed and appears to be no pacemaker malfunction. Transition IV Lasix to oral 40 mg twice daily Continue other cardiac medications Pharmacy is dosing Coumadin Patient is cleared for discharge from a cardiology perspective. Patient may follow-up in the office with Dr. Saucedo in 1 to 2 weeks. Nurse practitioner note has been reviewed, I agree with documented findings and plan of care. Patient was seen and examined. Objective - Vital Signs Vital signs: Vital Signs Temp 97.6 F 01/24/25 07:18 Pulse 68 01/24/25 07:18 Resp 16 01/24/25 07:18 BP 101/65 01/24/25 07:18 Pulse Ox 96 01/24/25 07:18 FiO2 Intake & Output 01/23/25 01/24/25 01/24/25 18:59 06:59 18:59 Output Total 1500 1600 Balance -1500 -1600 Weight 128.4 kg Output: Urine 1500 1600 - Labs CBC & Chem 7: 01/21/25 05:24 01/24/25 04:21 Labs: Abnormal Lab Results - Last 24 Hours (Table) 01/24/25 01/24/25 Range/Units 04:21 04:21 PT 21.2 H (10.0-12.5) sec INR 2.1 H (<1.2) Chloride 95 L (96-109) mmol/L Anion Gap 13.40 H (4.00-12.00) mmol/L BUN 28.0 H (9.0-27.0) mg/dL Est GFR (CKD-EPI) 59 L (>=60) BUN/Creatinine Ratio 21.54 H (12.00-20.00) Ratio
--- NOTE | 2025-01-24 13:35 | P.DS ---
Providers Date of admission: 01/19/25 14:09 Expected date of discharge: 01/24/25 Attending physician: Quang Franco Consults: 01/19/25 14:06 Consult Physician Routine Consulting Provider: Audie Davis Consult Reason/Comments: chf Do you want consulting provider notified?: Yes Primary care physician: [facility] Course: 69-year-old male with a past medical history of third-degree heart block status post dual chamber pacemaker placement, paroxysmal atrial fibrillation status post cardiac ablation on anticoagulation with Coumadin, congestive heart failure, hypertension, and hyperlipidemia. He presented to the emergency department sent by his PCP for concerns of possible pacemaker dysfunction. Patient reports he was recently evaluated by his PCP for reports of shortness of breath and bilateral lower extremity edema. He reports he underwent an x-ray at the office which was concerning for possible detached pacemaker lead and fluid volume overload and he was instructed to come to the ER for evaluation. Upon arrival to our facility, patient underwent evaluation in the emergency department. Vital signs upon arrival show blood pressure 108/74, heart rate 92, respiratory rate 16, temp 97.3 F, and SpO2 of 92% on room air. EKG completed showing a ventricular paced rhythm at 70 bpm. Chest x-ray showing cardiomegaly with pulmonary vascular congestion and small to moderate-sized right pleural effusion with associated consolidation consistent with CHF. Labs completed and reviewed. CBC showing normocytic anemia with hemoglobin of 12.8. Coagulation profile showing supratherapeutic INR 4.0. BMP unremarkable with exception of mild prerenal azotemia with BUN of 21. Blood glucose 98. Lactic acid 0.8. Magnesium 1.8. Calcium 8.9. Liver profile unremarkable. Troponin elevated at 0.065 and proBNP also elevated at 2380. Patient provided with IV Lasix and admitted under our services with consultation to cardiology.Troponins trended resulting at 0.065, 0.059, 0.056. 01/21 Patient was seen and examined. Improved SOB and LE edema. Cardiology recommends interrogating pacemaker, continue IV lasix, DC Amlodipine and add Farxiga. CBC, Coag panel and BMP significant for PT 25.7, INR 2.6. Mag 1.7. BNP 2166. Echo EF 50-55% mild MR/TR/ and LVH. 01/22 Patient was seen and examined. Improved SOB and LE edema. Cardiology recommends continue IV lasix, decrease Valsartan, add Aldactone. Negative 3.73L fluid balance. Coag panel and BMP significant for PT 19.6, INR 1.9, BUN/Cr 21. CXR done today shows improved pulmonary vascular congestion. 01/23 Patient was seen and examined. Improved SOB and LE edema. Cardiology has increased Lasix doing to TID. Negative 2.365L fluid balance. Coag panel and BMP significant for PT 18.6, INR 1.8, bicarb 33, BUN/Cr 21.09. 01/24 Patient was seen and examined. Doing well. Cleared by Cardiology for discharge. Coag panel, BMP significant for PT 21.2, INR 2.1, Cl 95, AG 13.4, BUN 28. Discharge Plan: Prescription for Farxiga, Aldactone, Lasix, Valsartan sent to the pharmacy. Follow up with PCP within 1-2 days and Cardiology within 1 week of discharge. Diet: Low salt, 1.5L fluid restriction. General: no distress, appears at stated age Derm: warm, dry Head: atraumatic, normocephalic, symmetric Mouth: no lip lesion, mucus membranes moist Cardiovascular: S1 S2 reg. no murmur. Lungs: Decreased BS bilaterally, no accessory muscle use Ext: no gross muscle atrophy, 2+ LE pitting edema, no contractures Neuro: No focal neurologic deficits. Psych: Alert and oriented. Discharge Diagnosis: Acute on chronic diastolic heart failure Elevated troponin, likely secondary to above History of third-degree heart block status post dual-chamber pacemaker placement Paroxysmal atrial fibrillation Hypertension Hyperlipidemia Chronic back pain and left shoulder pain Resolved: Supratherapeutic INH. HyperNa This complex discharge took 35 minutes to complete. Patient Condition at Discharge: Stable Plan - Discharge Summary Discharge Rx Participant: No New Discharge Prescriptions: New Spironolactone [Aldactone] 25 mg PO DAILY #30 tab Valsartan [Diovan] 160 mg PO DAILY #30 tab Dapagliflozin Propanediol [Farxiga] 10 mg PO DAILY #30 tab Furosemide [Lasix] 40 mg PO BID@0900,1600 #60 tab Continue Acetaminophen-Codeine 300-30mg [Tylenol w/codeine #3] 2 tab PO Q6H PRN PRN Reason: Pain Cyclobenzaprine [Flexeril] 10 mg PO TID Cholecalciferol [Vitamin D3 (25 Mcg = 1000 Iu)] 50 mcg PO DAILY Nitroglycerin 0.4 mg SL Q5M PRN PRN Reason: Chest Pain Atorvastatin [Lipitor] 40 mg PO HS carvediloL [Coreg] 12.5 mg PO BID-W/MEALS Diclofenac Sodium Gel [Voltaren 1% Gel] 1 applic TOPICAL TID PRN PRN Reason: Pain Naloxone HCl [Narcan] 4 mg NASAL ONCE PRN PRN Reason: opiod overdose Warfarin [Coumadin] 10 mg PO WESA@2099 Warfarin [Coumadin] 7.5 mg PO SUMOTUTHFR@2099 Discontinued amLODIPine [Norvasc] 10 mg PO DAILY #30 tab Valsartan 320 mg PO DAILY Discharge Medication List Acetaminophen-Codeine 300-30mg [Tylenol w/codeine #3] 2 tab PO Q6H PRN 11/21/15 [History] Cyclobenzaprine [Flexeril] 10 mg PO TID 08/25/18 [History] Cholecalciferol [Vitamin D3 (25 Mcg = 1000 Iu)] 50 mcg PO DAILY 08/15/22 [History] Nitroglycerin 0.4 mg SL Q5M PRN 08/16/22 [History] Warfarin [Coumadin] 10 mg PO WESA@209909/12/23 [History] Atorvastatin [Lipitor] 40 mg PO HS 01/19/25 [History] Diclofenac Sodium Gel [Voltaren 1% Gel] 1 applic TOPICAL TID PRN 01/19/25 [History] Naloxone HCl [Narcan] 4 mg NASAL ONCE PRN 01/19/25 [History] Warfarin [Coumadin] 7.5 mg PO SUMOTUTHFR@209901/19/25 [History] carvediloL [Coreg] 12.5 mg PO BID-W/MEALS 01/19/25 [History] Dapagliflozin Propanediol [Farxiga] 10 mg PO DAILY #30 tab 01/24/25 [Rx] Furosemide [Lasix] 40 mg PO BID@0900,1600 #60 tab 01/24/25 [Rx] Spironolactone [Aldactone] 25 mg PO DAILY #30 tab 01/24/25 [Rx] Valsartan [Diovan] 160 mg PO DAILY #30 tab 01/24/25 [Rx] Follow up Appointment(s)/Referral(s): Derek Saucedo MD [STAFF PHYSICIAN] - 1 Week Titi Purvis DO [Primary Care Provider] - 1-2 days Activity/Diet/Wound Care/Special Instructions: PT HAS HOME MEDS IN PHARMACY DOWNSTAIRS...PLEASE GIVE TO PATIENT PRIOR TO DISCHARGE. Discharge Disposition: HOME SELF-CARE
[2025-01-24] MEDS ORDERED: FUROSEMIDE 40 MG TAB PO SCH (16:00)
[2025-01-24] MEDS ORDERED: WARFARIN 7.5 MG TAB PO ONE (18:00)
== END 2025-01-24 15:40 | disposition home or self-care (01) | DRG 291 ==
LOC: EC 11:50 → 6NMEDSUR 14:08 → OBSVTOIN 14:09 → 6NMEDSUR 17:13
PROVIDERS: ADMIT Student in an Organized Health Care Education/Training Program; ATTEND Student in an Organized Health Care Education/Training Program
DX: I11.0 Hypertensive heart disease with heart failure (principal); I50.33 Acute on chronic diastolic (congestive) heart failure; E87.0 Hyperosmolality and hypernatremia; I27.20 Pulmonary hypertension, unspecified; I49.5 Sick sinus syndrome; D64.9 Anemia, unspecified; E11.42 Type 2 diabetes mellitus with diabetic polyneuropathy; R79.1 Abnormal coagulation profile; J45.909 Unspecified asthma, uncomplicated; I35.0 Nonrheumatic aortic (valve) stenosis; I48.0 Paroxysmal atrial fibrillation; R79.89 Other specified abnormal findings of blood chemistry; E78.5 Hyperlipidemia, unspecified; G89.29 Other chronic pain; M25.512 Pain in left shoulder; M54.50 Low back pain, unspecified; F17.210 Nicotine dependence, cigarettes, uncomplicated; Z79.01 Long term (current) use of anticoagulants; Z79.84 Long term (current) use of oral hypoglycemic drugs; Z79.899 Other long term (current) drug therapy; Z88.6 Allergy status to analgesic agent
CPT/HCPCS: 36415; 71046; 80048; 80053; 83605; 83735; 83880; 84484; 85025; 85027; 85610; 85730; 93005; 93306; 96374; 99285